=== PATIENT | female | born 1990 | race Caucasian/White ===

== ENCOUNTER 2016-08-14 01:15 | Inpatient (IN) | payer BC ==
[~2016-08-14] VITALS: Ht 170.2 cm; Wt 68.2 kg
[2016-08-14] VITALS (17 sets, daily range): BP systolic 91–136; BP diastolic 49–83
[2016-08-14] MEDS ORDERED: INSULIN,REGULAR 150 UNIT DRIP 150 ML IV ONE (03:00)
[2016-08-14 03:04] LABS: BASO # 0.1 x10^3/uL (0.0-0.2); BASO % 1 % (0-3); EOS % 0 % (0-3); HEMOGLOBIN 13.3 g/dL (12.0-15.5); LYMPH # 2.7 x10^3/uL (1.0-4.8); LYMPH % 16 % (24-48); MEAN CORPUSCULAR HEMOGLOBIN 29 pg (25-35); MEAN CORPUSCULAR HGB CONC 29 g/dL (31-37); MEAN CORPUSCULAR VOLUME 101 fL (79-100); MONO % 4 % (0-9); NEUT % 80 % (31-73); PLATELET COUNT 434 x10^3/uL (140-400); RED BLOOD COUNT 4.59 x10^6/uL (3.50-5.40); RED CELL DISTRIBUTION WIDTH 16.2 % (11.5-14.5); WHITE BLOOD COUNT 17.7 x10^3/uL (4.0-11.0)
[2016-08-14 03:17] LABS: ALBUMIN 3.9 g/dL (3.4-5.0); ALBUMIN/GLOBULIN RATIO 0.9 (1.0-1.7); CALCIUM 9.3 mg/dL (8.5-10.1); CREATININE 1.7 mg/dL (0.6-1.0); GFR 36.6; POTASSIUM 5.9 mmol/L (3.5-5.1); TOTAL BILIRUBIN 0.8 mg/dL (0.2-1.0); TOTAL PROTEIN 8.2 g/dL (6.4-8.2)
[2016-08-14] MEDS ORDERED: IV NORMAL SALINE 1000ML BAG 1,000 ML IV ONE ×4 (03:30→05:15)
[2016-08-14] MEDS ORDERED: INSULIN REGULAR 100 UNIT/ML 10ML VIAL. IV ONE (03:30)
[2016-08-14] MEDS ORDERED: LIDOCAINE 1% / SOD BICARB 8.4% 20 ML VIAL. IJ ONE ×2 (03:33→05:00)
[2016-08-14 04:00] LABS: PLT ESTIMATE ADEQUATE (ADEQUATE)
[2016-08-14] MEDS ORDERED: ONDANSETRON PF 4 MG/2 ML VIAL. IV ONE (04:00)
[2016-08-14] MEDS ORDERED: LORAZEPAM 2 MG/ML VIAL. IV ONE (04:00)
[2016-08-14] MEDS ORDERED: HYDROMORPHONE 2 MG/ML VIAL. IV ONE (04:00)
[2016-08-14] MEDS ORDERED: IV NORMAL SALINE 1000ML BAG 1,000 ML IV SCH (05:10)
[2016-08-14] MEDS ORDERED: ONDANSETRON PF 4 MG/2 ML VIAL. IV PRN (05:15)
[2016-08-14] MEDS ORDERED: INSULIN REGULAR VIAL 150 UNIT in 0.9 % SODIUM CHLORIDE 150ML 150 ML IV PRN (05:30)
[2016-08-14 05:40] LABS: HEMATOCRIT 46.3 % (36.0-47.0)
[2016-08-14] MEDS ORDERED: SODIUM BICARBONATE VIAL 50 MEQ in IV 1/2 NORMAL SALINE 1,000 ML IV SCH (06:00)
[2016-08-14 06:07] LABS: PHOSPHORUS 8.3 mg/dL (2.6-4.7)
[2016-08-14 06:08] LABS: MAGNESIUM 2.6 mg/dL (1.8-2.4)
--- NOTE | 2016-08-14 07:09 | PHYS DOC ---
Past Medical History Past Medical History: Diabetes-Type I Past Surgical History: No Surgical History Alcohol Use: None Drug Use: Marijuana, Methamphetamine Adult General Chief Complaint Chief Complaint: HYPERGLYCEMIA HPI HPI Patient is a 25 year old female who is a transfer from [facility] for evaluation of DKA. Upon presentation the ER patient appeared to be tachypneic and tachycardic. I discussed with the ER physician at [facility] and he has requested patient be transferred here for assistance in management of her DKA. Patient's biggest issue with managing her DKA is being a very difficult IV access. The ER doctor at [facility] reports that he attempted multiple times to get a peripheral access on her unsuccessfully. He attempted a right subclavian IV on her unsuccessfully secondary to a significant scar tissue in that area from multiple IVs in the past. The ER doctor reports that for the Patient is a subclavian central catheter that he attempted the patient did obtain a apical right pneumothorax. Case was discussed with the camp housekeeper and the plan was to have the patient transferred to the ER here at [facility] and will have the nurse dealer accounts investigator up attempt an IV for access. If the nurse assist with unsuccessful then the patient would become an ER patient and I would assist with obtaining access. I was informed that the nursing dealer accounts investigator assist with unsuccessful in obtaining the IV. I was able to place a 20-gauge IV catheter in the patient's right antecubital fossa. Blood was obtained and IV fluids were initiated. Patient's labs came back with a significant acidosis with a bicarbonate of 9 and anion gap of 38. Patient was started on normal saline, given to use of IV insulin, and placed on insulin drip, and was upgraded to the intensive care unit. Patient's chest x-ray revealed a significant right pneumothorax which appears to have enlarged since her presentation in the ER [facility]. While she was in the ER the patient also received a right chest tube. After placement of the right chest to the patient reported that she felt significantly better from a respiratory status. Patient's physical exam was significant for tachycardia, pallor in her skin, tachypnea, dry mucous membranes, #1 DKA: Patient will be admitted to the intensive care unit. Patient was started on insulin. Patient was volume resuscitated and looks much improved after fluids and insulin. Case was discussed with Dr. Dee. #2 right pneumothorax secondary to right subclavian catheter insertion. HEENT Procedure note: Chest tube insertion right side pneumothorax In a clean and sterile sterile fashion using optimal barrier technique verbal informed consent was obtained. Patient was placed on her back and given Dilaudid to assist with pain and Ativan to assist with her anxiety issue. The site was prepped with Betadine. 3 mL of lidocaine were utilized in order to numb up the skin and the superior aspect of the ribs on the fourth intercostal space in the mid axillary line. After adequate anesthesia was obtained an 11 blade was utilized to make a 2 cm incision on the fourth intercostal space midaxillaruy line. Using forceps and was able to easily enter the pleural cavity. A 28 Romanian chest tube was then inserted cranially without any significant difficulties. Upon inserting the chest tube the patient had significant improvement in her wrist upper status and felt significantly improved as far as her breathing. Chest tube was sutured in place using figure- of-eight suturing. Chest he was placed in suction and leak was identified. Chest x-ray was obtained which revealed adequate placement of the chest tube and resolution of the pneumothorax. Critical care time of 90 minutes was utilized for treatment and management of this patient's care. Patient was volume resuscitated. Patient's severe acidosis that was managed. Patient had a pneumothorax that was managed. 90 minutes were utilized exclusive of procedures. Review of Systems Review of Systems Constitutional: Denies fever or chills [] Eyes: Denies change in visual acuity, redness, or eye pain [] HENT: Denies nasal congestion or sore throat [] All other review systems are negative except as documented in history of present illness portion. Current Medications Current Medications Current Medications Medications (Trade) Dose Ordered Sig/Armand Start Time Stop Time Status Last Admin Dose Admin Insulin Human Regular (Novolin R Iv Drip) 150 ml @ 0 mls/hr 1X ONCE 08/14/16 03:00 08/14/16 03:05 DC 08/14/16 04:11 16.5 MLS/HR Allergies Allergies Allergies Coded Allergies Type Severity Reaction Last Updated Verified acetaminophen Allergy Intermediate 08/14/16 Yes adhesive tape Allergy Intermediate 08/14/16 Yes Physical Exam Physical Exam Constitutional: Well developed, well nourished, HENT: Normocephalic, atraumatic, bilateral external ears normal, dry mucous membranes. Eyes: PERRLA, EOMI, conjunctiva normal, no discharge. [] Neck: Normal range of motion, no tenderness, supple, no stridor. [] Cardiovascular:Heart rate regular rhythm, tachycardia tachypnea Abdomen: Bowel sounds normal, soft, no tenderness, no masses, no pulsatile masses. [] Skin: Warm, dry, no erythema, no rash. [] Back: No tenderness, no CVA tenderness. [] Extremities: No tenderness, no cyanosis, no clubbing, ROM intact, no edema. [] Neurologic: Alert and oriented X 3, normal motor function, normal sensory function, no focal deficits noted. [] Psychologic: Affect normal, judgement normal, mood normal. [] Current Patient Data Vital Signs Vital Signs Date Time Temp Pulse Resp B/P Pulse Ox O2 Delivery O2 Flow Rate FiO2 08/14/16 02:47 138 28 111/69 99 Room Air 08/14/16 02:40 97.9 97.9 Lab Values Laboratory Tests Test 08/14/16 02:35 White Blood Count 17.7x10^3/uL (4.0-11.0) H Red Blood Count 4.59x10^6/uL (3.50-5.40) Hemoglobin 13.3g/dL (12.0-15.5) Hematocrit 46.3% (36.0-47.0) Mean Corpuscular Volume 101fL (79-100) H Mean Corpuscular Hemoglobin 29pg (25-35) Mean Corpuscular Hemoglobin Concent 29g/dL (31-37) L Red Cell Distribution Width 16.2% (11.5-14.5) H Platelet Count 434x10^3/uL (140-400) H Neutrophils (%) (Auto) 80% (31-73) H Lymphocytes (%) (Auto) 16% (24-48) L Monocytes (%) (Auto) 4% (0-9) Eosinophils (%) (Auto) 0% (0-3) Basophils (%) (Auto) 1% (0-3) Neutrophils # (Auto) 14.1x10^3uL (1.8-7.7) H Lymphocytes # (Auto) 2.7x10^3/uL (1.0-4.8) Monocytes # (Auto) 0.8x10^3/uL (0.0-1.1) Eosinophils # (Auto) 0.0x10^3/uL (0.0-0.7) Basophils # (Auto) 0.1x10^3/uL (0.0-0.2) Segmented Neutrophils % 67% (35-66) H Band Neutrophils % 12% (0-9) H Lymphocytes % 15% (24-48) L Monocytes % 5% (0-10) Metamyelocytes % 1% (0-0) H Platelet Estimate Adequate (ADEQUATE) Sodium Level 128mmol/L (136-145) L Potassium Level 5.9mmol/L (3.5-5.1) H Chloride Level 81mmol/L (98-107) L Carbon Dioxide Level 9mmol/L (21-32) *L Anion Gap 38 (6-14) H Blood Urea Nitrogen 33mg/dL (7-20) H Creatinine 1.7mg/dL (0.6-1.0) H Estimated GFR (Cockcroft-Gault) 36.6 BUN/Creatinine Ratio 19 (6-20) Glucose Level 883mg/dL (70-99) *H Calcium Level 9.3mg/dL (8.5-10.1) Total Bilirubin 0.8mg/dL (0.2-1.0) Aspartate Amino Transferase (AST) 19U/L (15-37) Alanine Aminotransferase (ALT) 36U/L (14-59) Alkaline Phosphatase 131U/L (46-116) H Total Protein 8.2g/dL (6.4-8.2) Albumin 3.9g/dL (3.4-5.0) Albumin/Globulin Ratio 0.9 (1.0-1.7) L Laboratory Tests 08/14/16 02:35 Laboratory Tests 08/14/16 02:35 EKG EKG [] Radiology/Procedures Radiology/Procedures [] Course & Med Decision Making Course & Med Decision Making Pertinent Labs and Imaging studies reviewed. (See chart for details) [] Dragon Disclaimer Dragon Disclaimer This electronic medical record was generated, in whole or in part, using a voice recognition dictation system. Departure Departure Impression: Primary Impression: DKA (diabetic ketoacidoses) Additional Impressions: Pneumothorax on right Dehydration Hyperkalemia Disposition: ADMITTED INPATIENT Admitting Physician: Latonya Clements Condition: CRITICAL Referrals: NOLVIA ARRIOLA (PCP) Problem Qualifiers NELSY MILLER MD Aug 14, 2016 07:09
--- NOTE | 2016-08-14 07:24 | RAD ---
Portable chest, 08/14/2016, 3:05 AM: History: Pneumothorax. Comparison is made to an outside study from earlier the same day. The right-sided pneumothorax has increased in size. Is now estimated at 30-40% in volume. The heart size is normal. No pulmonary infiltrates are seen. There is no evidence of pleural fluid. IMPRESSION: Increasing moderate-sized right pneumothorax.
--- NOTE | 2016-08-14 07:27 | RAD ---
Portable chest, 08/14/2016, 4:46 AM: History: Pneumothorax, chest tube placement Comparison is made to the study of earlier the same day. A right chest tube has been placed with nearly complete resolution of the right-sided pneumothorax. There is only a tiny residual bit of pleural air over the right apex. There is only minimal atelectasis in the right base. The heart size is normal. No pleural fluid is seen. IMPRESSION: Nearly complete evacuation of the right pneumothorax status post right chest tube placement
[2016-08-14 07:50] LABS: CALCIUM 8.3 mg/dL (8.5-10.1); CREATININE 1.6 mg/dL (0.6-1.0); GFR 39.3; POTASSIUM 4.7 mmol/L (3.5-5.1)
[2016-08-14 09:04] LABS: HCO3 ABG 16 mmol/L (21-28); PCO2 ABG 30 mmHg (35-46); PH ABG 7.36 (7.35-7.45); PO2 ABG 86 mmHg (85-108); SAT O2 ABG 96 % (92-99)
[2016-08-14 09:05] LABS: FIO2 ABG 21
[2016-08-14] MEDS: IV DEXTROSE 5% - 0.9 % NACL 1,000 ML IV PRN ×3 (09:35→18:27)
--- NOTE | 2016-08-14 10:58 | ACF ---
Admit Criteria Forms Admit Criteria Forms Admit Criteria Forms DIABETES Clinical Indications for Admission to Inpatient Care (Place 'X' for any and all applicable criteria): Admission is indicated by presence of ALL (if I & II) or ANY ONE (if III or IV) of the following (1)(2)(3)(4): [x]I. Diabetes is uncontrolled as indicated by ANY ONE of the following: [x]a) Diabetic ketoacidosis as indicated by ALL of the following (8): [ ]i) Hyperglycemia (eg, plasma glucose greater than 200 mg/ dL (11.1 mmol/L)) [ ]ii) Acidosis (eg, arterial pH less than 7.30, serum bicarbonate level less than 15 mEq/L (mmol/L)) [ ]iii) Moderate ketonuria or ketonemia [ ]b) Hyperglycemic hyperosmolar state as indicated by ALL of the following(9)(10): [ ]i) Neurologic dysfunction (eg, stupor, coma, hemiparesis , seizure)(13) [ ]ii) Plasma glucose greater than 600 mg/dL (33.3 mmol/L) [ ]iii) Serum osmolality greater than 320 mOsm/kg (mmol/kg) [ ]c) Severe signs or symptoms secondary to hyperglycemia indicated by ANY ONE of the following: [ ]i) Altered mental status(10) [ ]ii) Significant hypovolemia or dehydration [ ]iii) Intractable nausea or vomiting [ ]iv) Unexplained fever or severe infection [ ]v) Severe electrolyte abnormality (eg, hypokalemia, hyperkalemia, hypernatremia) [ ]II. Management at other levels of care (Also use Diabetes: Observation Care as appropriate) is not feasible because of ANY ONE of the following: [ ]a) Condition was not adequately corrected with treatment at other levels of care. [ ]b) Treatment at other levels of care is not appropriate because of condition severity (eg, hyperosmolar coma). [ ]III. Contraindications and/or Inappropriate clinical situations for Observational Care in patients with Diabetes, when ANY ONE of the following is required: [ ]a) Patient require specific diagnostic workup or therapeutic intervention 22 [ ]b) Patient with abnormal vital signs or altered mental status 23 [ ]IV. General contraindications and/or Inappropriate clinical situations for Observational Care in patients with Diabetes, when ANY ONE of the following is required: [ ]a) Prediction of prolongation of LOS based on ANY ONE of the following may be considered as a contraindication for observational care 2, 3, 4, 5, 6, 7, 8, 9, 10, 11 [ ]i) Age > 65 yrs. [ ]ii) Patient arriving by ambulance [ ]iii) Patient with high acuity [ ]iv) Patient requiring vital sign monitoring [ ]v) Patient on IV medication [ ]b) Systolic blood pressures 180mmHg 3,12 [ ]c) Patient with altered mental status including delirium and other alteration of consciousness, (3) [ ]d) Patient whose discharge disposition will be to a residential home or rehabilitation home should not be managed in Emergency Department Observation Unit. CMS rule requires 3 days hospital stay before such placement.3,13 [ ]e) Patient with failure to thrive due to broad array of etiologies 3,16,17 [ ]f) Inability to ambulate 3,14 Extended stay beyond goal length of stay may be needed for(3)(20): [ ]a) Treatment of precipitating causes [ ]b) Development of hypoglycemia [ ]c) Complications of treatment [ ]d) Complications of decompensated diabetes (eg, acute gastric dilatation, persistent metabolic or neurologic derangement) [ ]e) Active Comorbidities [ ]f) Older patients( 65 years or older) The original [employer] content created by [employer] has been revised. The portions of the content which have been revised are identified through the use of italic text or in bold,and [facility] has neither reviewed nor approved the modified material. All other unmodified content is copyright [facility]. Please see references footnoted in the original [facility] edition 2016 JONAH MALDONADO Aug 14, 2016 10:58
[2016-08-14 11:37] LABS: CALCIUM 7.9 mg/dL (8.5-10.1); CREATININE 1.1 mg/dL (0.6-1.0); GFR 60.5; MAGNESIUM 2.1 mg/dL (1.8-2.4); PHOSPHORUS 3.9 mg/dL (2.6-4.7); POTASSIUM 4.1 mmol/L (3.5-5.1)
[2016-08-14] MEDS: MORPHINE SULFATE 2 MG/ML DISP.SYRIN. IV PRN ×3 (12:14→21:22)
--- NOTE | 2016-08-14 16:11 | PDOC ---
PULMONARY PROGRESS NOTES Vitals Vital Signs Date Time Temp Pulse Resp B/P Pulse Ox O2 Delivery O2 Flow Rate FiO2 08/14/16 16:00 Room Air 08/14/16 12:14 17 99 08/14/16 07:30 124 99/56 08/14/16 06:00 98.2 98.2 Labs Laboratory Tests Test 08/14/16 02:35 08/14/16 05:19 08/14/16 06:00 08/14/16 06:30 White Blood Count 17.7x10^3/uL (4.0-11.0) Red Blood Count 4.59x10^6/uL (3.50-5.40) Hemoglobin 13.3g/dL (12.0-15.5) Hematocrit 46.3% (36.0-47.0) Mean Corpuscular Volume 101fL (79-100) Mean Corpuscular Hemoglobin 29pg (25-35) Mean Corpuscular Hemoglobin Concent 29g/dL (31-37) Red Cell Distribution Width 16.2% (11.5-14.5) Platelet Count 434x10^3/uL (140-400) Neutrophils (%) (Auto) 80% (31-73) Lymphocytes (%) (Auto) 16% (24-48) Monocytes (%) (Auto) 4% (0-9) Eosinophils (%) (Auto) 0% (0-3) Basophils (%) (Auto) 1% (0-3) Neutrophils # (Auto) 14.1x10^3uL (1.8-7.7) Lymphocytes # (Auto) 2.7x10^3/uL (1.0-4.8) Monocytes # (Auto) 0.8x10^3/uL (0.0-1.1) Eosinophils # (Auto) 0.0x10^3/uL (0.0-0.7) Basophils # (Auto) 0.1x10^3/uL (0.0-0.2) Segmented Neutrophils % 67% (35-66) Band Neutrophils % 12% (0-9) Lymphocytes % 15% (24-48) Monocytes % 5% (0-10) Metamyelocytes % 1% (0-0) Platelet Estimate Adequate (ADEQUATE) Sodium Level 128mmol/L (136-145) 136mmol/L (136-145) Potassium Level 5.9mmol/L (3.5-5.1) 4.7mmol/L (3.5-5.1) Chloride Level 81mmol/L (98-107) 95mmol/L (98-107) Carbon Dioxide Level 9mmol/L (21-32) 6mmol/L (21-32) Anion Gap 38 (6-14) 35 (6-14) Blood Urea Nitrogen 33mg/dL (7-20) 36mg/dL (7-20) Creatinine 1.7mg/dL (0.6-1.0) 1.6mg/dL (0.6-1.0) Estimated GFR (Cockcroft-Gault) 36.6 39.3 BUN/Creatinine Ratio 19 (6-20) Glucose Level 883mg/dL (70-99) 661mg/dL (70-99) Calcium Level 9.3mg/dL (8.5-10.1) 8.3mg/dL (8.5-10.1) Total Bilirubin 0.8mg/dL (0.2-1.0) Aspartate Amino Transf (AST/SGOT) 19U/L (15-37) Alanine Aminotransferase (ALT/SGPT) 36U/L (14-59) Alkaline Phosphatase 131U/L (46-116) Total Protein 8.2g/dL (6.4-8.2) Albumin 3.9g/dL (3.4-5.0) Albumin/Globulin Ratio 0.9 (1.0-1.7) Phosphorus Level 8.3mg/dL (2.6-4.7) Magnesium Level 2.6mg/dL (1.8-2.4) Glucose (Fingerstick) 480mg/dL (70-99) Nasal Screen MRSA (PCR) Negative (Negative) Test 08/14/16 07:22 08/14/16 08:27 08/14/16 09:00 08/14/16 09:34 Glucose (Fingerstick) 325mg/dL (70-99) 224mg/dL (70-99) 173mg/dL (70-99) O2 Saturation 96% (92-99) Arterial Blood pH 7.36 (7.35-7.45) Arterial Blood pCO2 at Patient Temp 30mmHg (35-46) Arterial Blood pO2 at Patient Temp 86mmHg (85-108) Arterial Blood HCO3 16mmol/L (21-28) Arterial Blood Base Excess -8mmol/L (-3-3) FiO2 21 Test 08/14/16 10:48 08/14/16 11:00 08/14/16 11:56 08/14/16 13:04 Glucose (Fingerstick) 174mg/dL (70-99) 176mg/dL (70-99) 153mg/dL (70-99) Sodium Level 138mmol/L (136-145) Potassium Level 4.1mmol/L (3.5-5.1) Chloride Level 103mmol/L (98-107) Carbon Dioxide Level 23mmol/L (21-32) Anion Gap 12 (6-14) Blood Urea Nitrogen 30mg/dL (7-20) Creatinine 1.1mg/dL (0.6-1.0) Estimated GFR (Cockcroft-Gault) 60.5 Glucose Level 203mg/dL (70-99) Calcium Level 7.9mg/dL (8.5-10.1) Phosphorus Level 3.9mg/dL (2.6-4.7) Magnesium Level 2.1mg/dL (1.8-2.4) Test 08/14/16 14:19 08/14/16 15:44 Glucose (Fingerstick) 154mg/dL (70-99) 113mg/dL (70-99) Laboratory Tests Test 08/14/16 02:35 08/14/16 05:19 08/14/16 06:00 08/14/16 06:30 White Blood Count 17.7x10^3/uL (4.0-11.0) Red Blood Count 4.59x10^6/uL (3.50-5.40) Hemoglobin 13.3g/dL (12.0-15.5) Hematocrit 46.3% (36.0-47.0) Mean Corpuscular Volume 101fL (79-100) Mean Corpuscular Hemoglobin 29pg (25-35) Mean Corpuscular Hemoglobin Concent 29g/dL (31-37) Red Cell Distribution Width 16.2% (11.5-14.5) Platelet Count 434x10^3/uL (140-400) Neutrophils (%) (Auto) 80% (31-73) Lymphocytes (%) (Auto) 16% (24-48) Monocytes (%) (Auto) 4% (0-9) Eosinophils (%) (Auto) 0% (0-3) Basophils (%) (Auto) 1% (0-3) Neutrophils # (Auto) 14.1x10^3uL (1.8-7.7) Lymphocytes # (Auto) 2.7x10^3/uL (1.0-4.8) Monocytes # (Auto) 0.8x10^3/uL (0.0-1.1) Eosinophils # (Auto) 0.0x10^3/uL (0.0-0.7) Basophils # (Auto) 0.1x10^3/uL (0.0-0.2) Segmented Neutrophils % 67% (35-66) Band Neutrophils % 12% (0-9) Lymphocytes % 15% (24-48) Monocytes % 5% (0-10) Metamyelocytes % 1% (0-0) Platelet Estimate Adequate (ADEQUATE) Sodium Level 128mmol/L (136-145) 136mmol/L (136-145) Potassium Level 5.9mmol/L (3.5-5.1) 4.7mmol/L (3.5-5.1) Chloride Level 81mmol/L (98-107) 95mmol/L (98-107) Carbon Dioxide Level 9mmol/L (21-32) 6mmol/L (21-32) Anion Gap 38 (6-14) 35 (6-14) Blood Urea Nitrogen 33mg/dL (7-20) 36mg/dL (7-20) Creatinine 1.7mg/dL (0.6-1.0) 1.6mg/dL (0.6-1.0) Estimated GFR (Cockcroft-Gault) 36.6 39.3 BUN/Creatinine Ratio 19 (6-20) Glucose Level 883mg/dL (70-99) 661mg/dL (70-99) Calcium Level 9.3mg/dL (8.5-10.1) 8.3mg/dL (8.5-10.1) Total Bilirubin 0.8mg/dL (0.2-1.0) Aspartate Amino Transf (AST/SGOT) 19U/L (15-37) Alanine Aminotransferase (ALT/SGPT) 36U/L (14-59) Alkaline Phosphatase 131U/L (46-116) Total Protein 8.2g/dL (6.4-8.2) Albumin 3.9g/dL (3.4-5.0) Albumin/Globulin Ratio 0.9 (1.0-1.7) Phosphorus Level 8.3mg/dL (2.6-4.7) Magnesium Level 2.6mg/dL (1.8-2.4) Glucose (Fingerstick) 480mg/dL (70-99) Nasal Screen MRSA (PCR) Negative (Negative) Test 08/14/16 07:22 08/14/16 08:27 08/14/16 09:00 08/14/16 09:34 Glucose (Fingerstick) 325mg/dL (70-99) 224mg/dL (70-99) 173mg/dL (70-99) O2 Saturation 96% (92-99) Arterial Blood pH 7.36 (7.35-7.45) Arterial Blood pCO2 at Patient Temp 30mmHg (35-46) Arterial Blood pO2 at Patient Temp 86mmHg (85-108) Arterial Blood HCO3 16mmol/L (21-28) Arterial Blood Base Excess -8mmol/L (-3-3) FiO2 21 Test 08/14/16 10:48 08/14/16 11:00 08/14/16 11:56 08/14/16 13:04 Glucose (Fingerstick) 174mg/dL (70-99) 176mg/dL (70-99) 153mg/dL (70-99) Sodium Level 138mmol/L (136-145) Potassium Level 4.1mmol/L (3.5-5.1) Chloride Level 103mmol/L (98-107) Carbon Dioxide Level 23mmol/L (21-32) Anion Gap 12 (6-14) Blood Urea Nitrogen 30mg/dL (7-20) Creatinine 1.1mg/dL (0.6-1.0) Estimated GFR (Cockcroft-Gault) 60.5 Glucose Level 203mg/dL (70-99) Calcium Level 7.9mg/dL (8.5-10.1) Phosphorus Level 3.9mg/dL (2.6-4.7) Magnesium Level 2.1mg/dL (1.8-2.4) Test 08/14/16 14:19 08/14/16 15:44 Glucose (Fingerstick) 154mg/dL (70-99) 113mg/dL (70-99) Impression . NOTE DICTATED PTX IMPROVED WILL D/C WALL SUCTION AND REPEAT CXR JEFF NEW MD Aug 14, 2016 16:11
[2016-08-14] MEDS: INSULIN DETEMIR 300 UNITS/3 ML INSULN.PEN. SQ SCH (21:18)
[2016-08-15 03:59] VITALS: BP 122/85
[2016-08-15 05:24] LABS: BASO # 0.1 x10^3/uL (0.0-0.2); BASO % 1 % (0-3); EOS % 1 % (0-3); HEMATOCRIT 29.9 % (36.0-47.0); HEMOGLOBIN 9.9 g/dL (12.0-15.5); LYMPH # 2.9 x10^3/uL (1.0-4.8); LYMPH % 28 % (24-48); MEAN CORPUSCULAR HEMOGLOBIN 30 pg (25-35); MEAN CORPUSCULAR HGB CONC 33 g/dL (31-37); MEAN CORPUSCULAR VOLUME 90 fL (79-100); MONO % 7 % (0-9); NEUT % 63 % (31-73); PLATELET COUNT 266 x10^3/uL (140-400); RED BLOOD COUNT 3.31 x10^6/uL (3.50-5.40); RED CELL DISTRIBUTION WIDTH 14.9 % (11.5-14.5); WHITE BLOOD COUNT 10.3 x10^3/uL (4.0-11.0)
[2016-08-15 05:48] LABS: CALCIUM 7.9 mg/dL (8.5-10.1); CREATININE 0.9 mg/dL (0.6-1.0); GFR 76.3; POTASSIUM 3.4 mmol/L (3.5-5.1)
[2016-08-15 07:00] VITALS: BP 118/91
[2016-08-15] MEDS ORDERED: ONDANSETRON PF 4 MG/2 ML VIAL. IV PRN (08:00)
[2016-08-15] MEDS ORDERED: DEXTROSE 50% 25 GM / 50ML DISP.SYRIN. IV PRN (08:00)
[2016-08-15] MEDS: INSULIN ASPART 300 UNITS/3 ML INSULN.PEN SQ SCH ×3 (08:00→17:15)
[2016-08-15] MEDS: MORPHINE SULFATE 2 MG/ML DISP.SYRIN. IV PRN ×5 (08:18→21:59)
--- NOTE | 2016-08-15 08:58 | RAD ---
PORTABLE CHEST 1V Clinical Indication: Right chest tube, timed 1830 Comparison: August 14, 2016. Technique: Portable upright AP view of the chest is obtained. Findings: Right-sided chest tube appears stable in position. Minimal residual right apical pneumothorax is seen, similar to the previous exam. No interval consolidation or pleural effusion is seen. Cardiomediastinal silhouette remains within normal limits of size. Visualized osseous structures and overlying soft tissues demonstrate no acute interval change. IMPRESSION: Stable positioning of a right chest tube with trace right apical pneumothorax remaining.
--- NOTE | 2016-08-15 09:29 | PDOC ---
PULMONARY PROGRESS NOTES Subjective no sob, has pain in ct site. has occ cough. Vitals Vital Signs Date Time Temp Pulse Resp B/P Pulse Ox O2 Delivery O2 Flow Rate FiO2 08/15/16 08:18 95 Room Air 08/15/16 07:00 98.2 96 18 118/91 3.0 98.2 Comments ros as mentioned as above other sys otherwise neb ROS: No Chest Pain General: Alert HEENT: Other (nc at perrl nose throat clear) Lungs: Crackles, Other (r ct) Cardiovascular: S1, S2 Abdomen: Soft, Non-tender Neuro Exam: Alert, Oriented Extremities: No Edema Skin: Warm Labs Laboratory Tests Test 08/14/16 02:35 08/14/16 05:19 08/14/16 06:00 08/14/16 06:30 White Blood Count 17.7x10^3/uL (4.0-11.0) Red Blood Count 4.59x10^6/uL (3.50-5.40) Hemoglobin 13.3g/dL (12.0-15.5) Hematocrit 46.3% (36.0-47.0) Mean Corpuscular Volume 101fL (79-100) Mean Corpuscular Hemoglobin 29pg (25-35) Mean Corpuscular Hemoglobin Concent 29g/dL (31-37) Red Cell Distribution Width 16.2% (11.5-14.5) Platelet Count 434x10^3/uL (140-400) Neutrophils (%) (Auto) 80% (31-73) Lymphocytes (%) (Auto) 16% (24-48) Monocytes (%) (Auto) 4% (0-9) Eosinophils (%) (Auto) 0% (0-3) Basophils (%) (Auto) 1% (0-3) Neutrophils # (Auto) 14.1x10^3uL (1.8-7.7) Lymphocytes # (Auto) 2.7x10^3/uL (1.0-4.8) Monocytes # (Auto) 0.8x10^3/uL (0.0-1.1) Eosinophils # (Auto) 0.0x10^3/uL (0.0-0.7) Basophils # (Auto) 0.1x10^3/uL (0.0-0.2) Segmented Neutrophils % 67% (35-66) Band Neutrophils % 12% (0-9) Lymphocytes % 15% (24-48) Monocytes % 5% (0-10) Metamyelocytes % 1% (0-0) Platelet Estimate Adequate (ADEQUATE) Sodium Level 128mmol/L (136-145) 136mmol/L (136-145) Potassium Level 5.9mmol/L (3.5-5.1) 4.7mmol/L (3.5-5.1) Chloride Level 81mmol/L (98-107) 95mmol/L (98-107) Carbon Dioxide Level 9mmol/L (21-32) 6mmol/L (21-32) Anion Gap 38 (6-14) 35 (6-14) Blood Urea Nitrogen 33mg/dL (7-20) 36mg/dL (7-20) Creatinine 1.7mg/dL (0.6-1.0) 1.6mg/dL (0.6-1.0) Estimated GFR (Cockcroft-Gault) 36.6 39.3 BUN/Creatinine Ratio 19 (6-20) Glucose Level 883mg/dL (70-99) 661mg/dL (70-99) Calcium Level 9.3mg/dL (8.5-10.1) 8.3mg/dL (8.5-10.1) Total Bilirubin 0.8mg/dL (0.2-1.0) Aspartate Amino Transf (AST/SGOT) 19U/L (15-37) Alanine Aminotransferase (ALT/SGPT) 36U/L (14-59) Alkaline Phosphatase 131U/L (46-116) Total Protein 8.2g/dL (6.4-8.2) Albumin 3.9g/dL (3.4-5.0) Albumin/Globulin Ratio 0.9 (1.0-1.7) Phosphorus Level 8.3mg/dL (2.6-4.7) Magnesium Level 2.6mg/dL (1.8-2.4) Glucose (Fingerstick) 480mg/dL (70-99) Nasal Screen MRSA (PCR) Negative (Negative) Test 08/14/16 07:22 08/14/16 08:27 08/14/16 09:00 08/14/16 09:34 Glucose (Fingerstick) 325mg/dL (70-99) 224mg/dL (70-99) 173mg/dL (70-99) O2 Saturation 96% (92-99) Arterial Blood pH 7.36 (7.35-7.45) Arterial Blood pCO2 at Patient Temp 30mmHg (35-46) Arterial Blood pO2 at Patient Temp 86mmHg (85-108) Arterial Blood HCO3 16mmol/L (21-28) Arterial Blood Base Excess -8mmol/L (-3-3) FiO2 21 Test 08/14/16 10:48 08/14/16 11:00 08/14/16 11:56 08/14/16 13:04 Glucose (Fingerstick) 174mg/dL (70-99) 176mg/dL (70-99) 153mg/dL (70-99) Sodium Level 138mmol/L (136-145) Potassium Level 4.1mmol/L (3.5-5.1) Chloride Level 103mmol/L (98-107) Carbon Dioxide Level 23mmol/L (21-32) Anion Gap 12 (6-14) Blood Urea Nitrogen 30mg/dL (7-20) Creatinine 1.1mg/dL (0.6-1.0) Estimated GFR (Cockcroft-Gault) 60.5 Glucose Level 203mg/dL (70-99) Calcium Level 7.9mg/dL (8.5-10.1) Phosphorus Level 3.9mg/dL (2.6-4.7) Magnesium Level 2.1mg/dL (1.8-2.4) Test 08/14/16 14:19 08/14/16 15:44 08/14/16 17:10 08/14/16 19:05 Glucose (Fingerstick) 154mg/dL (70-99) 113mg/dL (70-99) 113mg/dL (70-99) 165mg/dL (70-99) Test 08/14/16 20:50 08/15/16 04:50 08/15/16 07:46 Glucose (Fingerstick) 305mg/dL (70-99) 102mg/dL (70-99) White Blood Count 10.3x10^3/uL (4.0-11.0) Red Blood Count 3.31x10^6/uL (3.50-5.40) Hemoglobin 9.9g/dL (12.0-15.5) Hematocrit 29.9% (36.0-47.0) Mean Corpuscular Volume 90fL (79-100) Mean Corpuscular Hemoglobin 30pg (25-35) Mean Corpuscular Hemoglobin Concent 33g/dL (31-37) Red Cell Distribution Width 14.9% (11.5-14.5) Platelet Count 266x10^3/uL (140-400) Neutrophils (%) (Auto) 63% (31-73) Lymphocytes (%) (Auto) 28% (24-48) Monocytes (%) (Auto) 7% (0-9) Eosinophils (%) (Auto) 1% (0-3) Basophils (%) (Auto) 1% (0-3) Neutrophils # (Auto) 6.5x10^3uL (1.8-7.7) Lymphocytes # (Auto) 2.9x10^3/uL (1.0-4.8) Monocytes # (Auto) 0.8x10^3/uL (0.0-1.1) Eosinophils # (Auto) 0.1x10^3/uL (0.0-0.7) Basophils # (Auto) 0.1x10^3/uL (0.0-0.2) Sodium Level 137mmol/L (136-145) Potassium Level 3.4mmol/L (3.5-5.1) Chloride Level 101mmol/L (98-107) Carbon Dioxide Level 25mmol/L (21-32) Anion Gap 11 (6-14) Blood Urea Nitrogen 17mg/dL (7-20) Creatinine 0.9mg/dL (0.6-1.0) Estimated GFR (Cockcroft-Gault) 76.3 Glucose Level 247mg/dL (70-99) Calcium Level 7.9mg/dL (8.5-10.1) Laboratory Tests Test 08/14/16 09:34 08/14/16 10:48 08/14/16 11:00 08/14/16 11:56 Glucose (Fingerstick) 173mg/dL (70-99) 174mg/dL (70-99) 176mg/dL (70-99) Sodium Level 138mmol/L (136-145) Potassium Level 4.1mmol/L (3.5-5.1) Chloride Level 103mmol/L (98-107) Carbon Dioxide Level 23mmol/L (21-32) Anion Gap 12 (6-14) Blood Urea Nitrogen 30mg/dL (7-20) Creatinine 1.1mg/dL (0.6-1.0) Estimated GFR (Cockcroft-Gault) 60.5 Glucose Level 203mg/dL (70-99) Calcium Level 7.9mg/dL (8.5-10.1) Phosphorus Level 3.9mg/dL (2.6-4.7) Magnesium Level 2.1mg/dL (1.8-2.4) Test 08/14/16 13:04 08/14/16 14:19 08/14/16 15:44 08/14/16 17:10 Glucose (Fingerstick) 153mg/dL (70-99) 154mg/dL (70-99) 113mg/dL (70-99) 113mg/dL (70-99) Test 08/14/16 19:05 08/14/16 20:50 08/15/16 04:50 08/15/16 07:46 Glucose (Fingerstick) 165mg/dL (70-99) 305mg/dL (70-99) 102mg/dL (70-99) White Blood Count 10.3x10^3/uL (4.0-11.0) Red Blood Count 3.31x10^6/uL (3.50-5.40) Hemoglobin 9.9g/dL (12.0-15.5) Hematocrit 29.9% (36.0-47.0) Mean Corpuscular Volume 90fL (79-100) Mean Corpuscular Hemoglobin 30pg (25-35) Mean Corpuscular Hemoglobin Concent 33g/dL (31-37) Red Cell Distribution Width 14.9% (11.5-14.5) Platelet Count 266x10^3/uL (140-400) Neutrophils (%) (Auto) 63% (31-73) Lymphocytes (%) (Auto) 28% (24-48) Monocytes (%) (Auto) 7% (0-9) Eosinophils (%) (Auto) 1% (0-3) Basophils (%) (Auto) 1% (0-3) Neutrophils # (Auto) 6.5x10^3uL (1.8-7.7) Lymphocytes # (Auto) 2.9x10^3/uL (1.0-4.8) Monocytes # (Auto) 0.8x10^3/uL (0.0-1.1) Eosinophils # (Auto) 0.1x10^3/uL (0.0-0.7) Basophils # (Auto) 0.1x10^3/uL (0.0-0.2) Sodium Level 137mmol/L (136-145) Potassium Level 3.4mmol/L (3.5-5.1) Chloride Level 101mmol/L (98-107) Carbon Dioxide Level 25mmol/L (21-32) Anion Gap 11 (6-14) Blood Urea Nitrogen 17mg/dL (7-20) Creatinine 0.9mg/dL (0.6-1.0) Estimated GFR (Cockcroft-Gault) 76.3 Glucose Level 247mg/dL (70-99) Calcium Level 7.9mg/dL (8.5-10.1) Comments cxr small apical ptc Impression . IMPRESSION: 1. Pneumothorax, status post right subclavian catheter attempt. 2. Diabetic ketoacidosis. 3. Type 1 diabetes. 4. Dehydration. 5. Hyperkalemia. Plan . PLAN: 1. Chest tube is in place. There is no air leak. There is pleural variation, 2. cxr shows small ptx, i clamped ct, repeated cxr, r apical ptx slightly larger. ct was connected to suction, will repeat cxr in am discussed w pt, rn, YVETTE Mckeon MD Aug 15, 2016 09:29
--- NOTE | 2016-08-15 09:51 | CONS ---
DATE OF CONSULTATION: 08/14/2016 REASON FOR CONSULTATION: The patient was seen in pulmonary consultation at the request of Dr. Causey for chest tube management, status post pneumothorax. HISTORY OF PRESENT ILLNESS: The patient is a 25-year-old who presented to the Emergency Room with DKA. She has bad peripheral IV access and an attempt was made to obtain a subclavian central line on the right. Subsequent x-ray revealed pneumothorax. Chest tube has been placed. I was asked to manage her chest tube. The patient has had no respiratory distress. She denies any previous pneumothorax, no history of asthma. PAST MEDICAL HISTORY: Diabetes. PAST SURGICAL HISTORY: None. REVIEW OF SYSTEMS: As indicated above, otherwise, a 10-point system was reviewed and negative. CURRENT MEDICATIONS: List was reviewed. ALLERGIES: TO ACETAMINOPHEN. PHYSICAL EXAMINATION: VITAL SIGNS: Stable. O2 saturation was greater than 92%. HEENT: Eyes, the sclerae were nonicteric. NECK: Jugular venous distention was not elevated. No lymphadenopathy. CHEST: Full expansion. LUNGS: Adequate airway flow with no wheezes. CARDIOVASCULAR: Regular rate and rhythm with S1, S2, no S3. ABDOMEN: Soft, nontender, nondistended. EXTREMITIES: No clubbing, cyanosis or edema. Chest x-ray was reviewed, fully inflated right lung. LABORATORY DATA: Reviewed. White count was elevated. Arterial blood gas was reviewed. IMPRESSION: 1. Pneumothorax, status post right subclavian catheter attempt. 2. Diabetic ketoacidosis. 3. Type 1 diabetes. 4. Dehydration. 5. Hyperkalemia. PLAN: 1. Chest tube is in place. There is no air leak. There is variation, we will discontinue wall suction and repeat chest x-ray in 3 hours. 2. If x-ray continues to show fully inflated right lung, we will clamp the tube and proceed with repeating chest x-ray in the a.m. I do appreciate the privilege in participating in the patient's care. JEFF NEW MD DR: MARIANNE/david JOB#: [id number] / [id number]
--- NOTE | 2016-08-15 10:20 | HP ---
ADMIT DATE: 08/14/2016 CHIEF COMPLAINT: DKA. HISTORY OF PRESENT ILLNESS: The patient is a 25-year-old woman with frequent admissions to [facility] for hyperglycemia and DKA. She once again had presented to the Emergency Room at [facility] overnight with tachycardia and tachypnea and was found in DKA. She was transferred to [facility] and placed in the ICU for further care. In the Emergency Room at [facility], it was very difficult establishing an IV access. A subclavian line was attempted and was unsuccessful. Chest pain prompted an x-ray, which revealed a pneumothorax. Chest tube was placed on the right. The patient is currently on insulin drip with improved control of her blood sugars. PAST MEDICAL HISTORY: Diabetes mellitus type 1. FAMILY HISTORY: No other members with diabetes. SOCIAL HISTORY: Lives with family. Multisubstance abuse including cannabis and methamphetamine. ALLERGIES: TYLENOL. MEDICATIONS: MAR reconciled with home medications. REVIEW OF SYSTEMS: The patient is very lethargic, complains of severe pain in her right chest, where chest tube is placed. Denies any nausea, vomiting, any dysuria, or other symptoms. PHYSICAL EXAMINATION: VITAL SIGNS: Show a blood pressure of 91/53, heart rate at 122, and respiratory rate at 20. She is afebrile. GENERAL: This is a well-nourished 25-year-old woman resting on her right side, responding appropriately. HEENT: Shows no scleral icterus. NECK: Supple. LUNGS: Clear, also decreased breathing effort secondary to pain. HEART: Tachycardic. ABDOMEN: Positive bowel sounds, soft, and nontender. EXTREMITIES: Showed no edema. SKIN: Warm, soft, and dry. LABORATORY DATA: WBC of 17.7 and hemoglobin 13 with a platelet count of 434. Chemistries here show a BUN and creatinine of 36 and 0.6, bicarbonate of 6, and glucose of 661 on lab draw, currently in the 200 range by fingerstick. RADIOGRAPHIC FINDINGS: Initial chest x-ray at 3:00 a.m. showed increasing moderate-sized right pneumothorax, prompting subsequent chest tube placement with nearly complete evacuation of right pneumothorax, status post right chest tube placement. ASSESSMENT AND PLAN: The patient is a 25-year-old diabetic, multi-substance abuser, who presents with diabetic ketoacidosis. She is currently on diabetic ketoacidosis protocol with insulin drip, bicarbonate, and is improving by numbers. Her main complaint however is her chest tube, which was necessitated by iatrogenic pneumothorax. As pneumothorax now is resolved, we will try to clamp the tube and repeat x-rays to rule out re-accumulation before discontinuing chest tube. Dr. Mayberry from Pulmonary has been consulted to help with management as well. We will monitor her electrolytes with ongoing insulin therapy. Potassium repletion as needed. For prophylaxis, she will be placed on PPI and heparin. DEEPAK MCKENZIE MD DR: ESTEVAN/nts JOB#: [id number] / [id number] ADONAY
[2016-08-15 11:00] VITALS: BP 124/87
--- NOTE | 2016-08-15 11:28 | RAD ---
CHEST AP ONLY Clinical Indication: ptx, chest tube clamped Comparison: August 14, 2016. Technique: Single portable upright AP view of the chest is obtained. Findings: Right sided chest tube is stable in position. Small residual right apical pneumothorax is redemonstrated. No interval consolidation or pleural effusion is seen. Cardiomediastinal silhouette is stable in size. Visualized osseous structures and overlying soft tissues demonstrate no acute interval change. IMPRESSION: Small apical right pneumothorax redemonstrated, otherwise no acute interval change.
--- NOTE | 2016-08-15 13:48 | PDOC ---
PROGRESS NOTES Chief Complaint Chief Complaint cc: DKA Diabetic ketoacidosis Pneumothorax History of Present Illness History of Present Illness Patient seen and evaluated at bedside. Patient resting comfortably in no apparent distress. She notes pain to the chest tube site and decrease inspiration secondary to pain. Dr. Wolfe clamped the chest tube and cxr was ordered. Imaging showed an apical ptx, thus suction was restarted. discuss w/ Dr. Wolfe and nursing staff. Vitals Vitals Vital Signs Date Time Temp Pulse Resp B/P Pulse Ox O2 Delivery O2 Flow Rate FiO2 08/15/16 12:53 94 Room Air 3.0 08/15/16 11:00 97.9 96 20 124/87 97.9 Physical Exam General: Alert, Oriented X3, Cooperative, Other (chest tube in place. ) Heart: Regular rate, Normal S1 Lungs: Clear, Other (poor inspiratory effort secondary to pain. negative chest retractions or accessory muscle use. ) Abdomen: Soft, No tenderness Extremities: No cyanosis, No edema Skin: No rashes, No significant lesion Labs LABS Laboratory Tests Test 08/14/16 14:19 08/14/16 15:44 08/14/16 17:10 08/14/16 19:05 Glucose (Fingerstick) 154mg/dL (70-99) 113mg/dL (70-99) 113mg/dL (70-99) 165mg/dL (70-99) Test 08/14/16 20:50 08/15/16 04:50 08/15/16 07:46 08/15/16 12:01 Glucose (Fingerstick) 305mg/dL (70-99) 102mg/dL (70-99) 169mg/dL (70-99) White Blood Count 10.3x10^3/uL (4.0-11.0) Red Blood Count 3.31x10^6/uL (3.50-5.40) Hemoglobin 9.9g/dL (12.0-15.5) Hematocrit 29.9% (36.0-47.0) Mean Corpuscular Volume 90fL (79-100) Mean Corpuscular Hemoglobin 30pg (25-35) Mean Corpuscular Hemoglobin Concent 33g/dL (31-37) Red Cell Distribution Width 14.9% (11.5-14.5) Platelet Count 266x10^3/uL (140-400) Neutrophils (%) (Auto) 63% (31-73) Lymphocytes (%) (Auto) 28% (24-48) Monocytes (%) (Auto) 7% (0-9) Eosinophils (%) (Auto) 1% (0-3) Basophils (%) (Auto) 1% (0-3) Neutrophils # (Auto) 6.5x10^3uL (1.8-7.7) Lymphocytes # (Auto) 2.9x10^3/uL (1.0-4.8) Monocytes # (Auto) 0.8x10^3/uL (0.0-1.1) Eosinophils # (Auto) 0.1x10^3/uL (0.0-0.7) Basophils # (Auto) 0.1x10^3/uL (0.0-0.2) Sodium Level 137mmol/L (136-145) Potassium Level 3.4mmol/L (3.5-5.1) Chloride Level 101mmol/L (98-107) Carbon Dioxide Level 25mmol/L (21-32) Anion Gap 11 (6-14) Blood Urea Nitrogen 17mg/dL (7-20) Creatinine 0.9mg/dL (0.6-1.0) Estimated GFR (Cockcroft-Gault) 76.3 Glucose Level 247mg/dL (70-99) Calcium Level 7.9mg/dL (8.5-10.1) Review of Systems Review of Systems (+) occasional cough (+) chest wall pain secondary to chest tube placement (+) pleuritic pain Denies chest pain, sob, abdominal pain, n/v/d, or fever/chills. Assessment and Plan Assessmemt and Plan Problems Medical Problems: (1) Dehydration Status: Acute (2) DKA (diabetic ketoacidoses) Status: Acute (3) Hyperkalemia Status: Acute (4) Pneumothorax on right Status: Acute Assessment: 1.) diabetic ketoacidosis, currently resolved 2.) pneumothorax s/p subclavian line placement 3.) Diabetes mellitus type I 4.) hypokalemia Plan: 1.) chest tube management, per pulmonology 2.) maintain O2 saturation >90% 3.) repeat CXR 4.) replete electrolytes 5.) pain management 6.) recheck labs in the AM 7.) probable discharge when okay with pulmonology. 8.) appreciate subspecialty input. Problems: Comment Review of Relevant I have reviewed the following items silverio (where applicable) has been applied. Labs Laboratory Tests Test 08/14/16 02:35 08/14/16 05:19 08/14/16 06:00 08/14/16 06:30 White Blood Count 17.7x10^3/uL (4.0-11.0) Red Blood Count 4.59x10^6/uL (3.50-5.40) Hemoglobin 13.3g/dL (12.0-15.5) Hematocrit 46.3% (36.0-47.0) Mean Corpuscular Volume 101fL (79-100) Mean Corpuscular Hemoglobin 29pg (25-35) Mean Corpuscular Hemoglobin Concent 29g/dL (31-37) Red Cell Distribution Width 16.2% (11.5-14.5) Platelet Count 434x10^3/uL (140-400) Neutrophils (%) (Auto) 80% (31-73) Lymphocytes (%) (Auto) 16% (24-48) Monocytes (%) (Auto) 4% (0-9) Eosinophils (%) (Auto) 0% (0-3) Basophils (%) (Auto) 1% (0-3) Neutrophils # (Auto) 14.1x10^3uL (1.8-7.7) Lymphocytes # (Auto) 2.7x10^3/uL (1.0-4.8) Monocytes # (Auto) 0.8x10^3/uL (0.0-1.1) Eosinophils # (Auto) 0.0x10^3/uL (0.0-0.7) Basophils # (Auto) 0.1x10^3/uL (0.0-0.2) Segmented Neutrophils % 67% (35-66) Band Neutrophils % 12% (0-9) Lymphocytes % 15% (24-48) Monocytes % 5% (0-10) Metamyelocytes % 1% (0-0) Platelet Estimate Adequate (ADEQUATE) Sodium Level 128mmol/L (136-145) 136mmol/L (136-145) Potassium Level 5.9mmol/L (3.5-5.1) 4.7mmol/L (3.5-5.1) Chloride Level 81mmol/L (98-107) 95mmol/L (98-107) Carbon Dioxide Level 9mmol/L (21-32) 6mmol/L (21-32) Anion Gap 38 (6-14) 35 (6-14) Blood Urea Nitrogen 33mg/dL (7-20) 36mg/dL (7-20) Creatinine 1.7mg/dL (0.6-1.0) 1.6mg/dL (0.6-1.0) Estimated GFR (Cockcroft-Gault) 36.6 39.3 BUN/Creatinine Ratio 19 (6-20) Glucose Level 883mg/dL (70-99) 661mg/dL (70-99) Calcium Level 9.3mg/dL (8.5-10.1) 8.3mg/dL (8.5-10.1) Total Bilirubin 0.8mg/dL (0.2-1.0) Aspartate Amino Transf (AST/SGOT) 19U/L (15-37) Alanine Aminotransferase (ALT/SGPT) 36U/L (14-59) Alkaline Phosphatase 131U/L (46-116) Total Protein 8.2g/dL (6.4-8.2) Albumin 3.9g/dL (3.4-5.0) Albumin/Globulin Ratio 0.9 (1.0-1.7) Phosphorus Level 8.3mg/dL (2.6-4.7) Magnesium Level 2.6mg/dL (1.8-2.4) Glucose (Fingerstick) 480mg/dL (70-99) Nasal Screen MRSA (PCR) Negative (Negative) Test 08/14/16 07:22 08/14/16 08:27 08/14/16 09:00 08/14/16 09:34 Glucose (Fingerstick) 325mg/dL (70-99) 224mg/dL (70-99) 173mg/dL (70-99) O2 Saturation 96% (92-99) Arterial Blood pH 7.36 (7.35-7.45) Arterial Blood pCO2 at Patient Temp 30mmHg (35-46) Arterial Blood pO2 at Patient Temp 86mmHg (85-108) Arterial Blood HCO3 16mmol/L (21-28) Arterial Blood Base Excess -8mmol/L (-3-3) FiO2 21 Test 08/14/16 10:48 08/14/16 11:00 08/14/16 11:56 08/14/16 13:04 Glucose (Fingerstick) 174mg/dL (70-99) 176mg/dL (70-99) 153mg/dL (70-99) Sodium Level 138mmol/L (136-145) Potassium Level 4.1mmol/L (3.5-5.1) Chloride Level 103mmol/L (98-107) Carbon Dioxide Level 23mmol/L (21-32) Anion Gap 12 (6-14) Blood Urea Nitrogen 30mg/dL (7-20) Creatinine 1.1mg/dL (0.6-1.0) Estimated GFR (Cockcroft-Gault) 60.5 Glucose Level 203mg/dL (70-99) Calcium Level 7.9mg/dL (8.5-10.1) Phosphorus Level 3.9mg/dL (2.6-4.7) Magnesium Level 2.1mg/dL (1.8-2.4) Test 08/14/16 14:19 08/14/16 15:44 08/14/16 17:10 08/14/16 19:05 Glucose (Fingerstick) 154mg/dL (70-99) 113mg/dL (70-99) 113mg/dL (70-99) 165mg/dL (70-99) Test 08/14/16 20:50 08/15/16 04:50 08/15/16 07:46 08/15/16 12:01 Glucose (Fingerstick) 305mg/dL (70-99) 102mg/dL (70-99) 169mg/dL (70-99) White Blood Count 10.3x10^3/uL (4.0-11.0) Red Blood Count 3.31x10^6/uL (3.50-5.40) Hemoglobin 9.9g/dL (12.0-15.5) Hematocrit 29.9% (36.0-47.0) Mean Corpuscular Volume 90fL (79-100) Mean Corpuscular Hemoglobin 30pg (25-35) Mean Corpuscular Hemoglobin Concent 33g/dL (31-37) Red Cell Distribution Width 14.9% (11.5-14.5) Platelet Count 266x10^3/uL (140-400) Neutrophils (%) (Auto) 63% (31-73) Lymphocytes (%) (Auto) 28% (24-48) Monocytes (%) (Auto) 7% (0-9) Eosinophils (%) (Auto) 1% (0-3) Basophils (%) (Auto) 1% (0-3) Neutrophils # (Auto) 6.5x10^3uL (1.8-7.7) Lymphocytes # (Auto) 2.9x10^3/uL (1.0-4.8) Monocytes # (Auto) 0.8x10^3/uL (0.0-1.1) Eosinophils # (Auto) 0.1x10^3/uL (0.0-0.7) Basophils # (Auto) 0.1x10^3/uL (0.0-0.2) Sodium Level 137mmol/L (136-145) Potassium Level 3.4mmol/L (3.5-5.1) Chloride Level 101mmol/L (98-107) Carbon Dioxide Level 25mmol/L (21-32) Anion Gap 11 (6-14) Blood Urea Nitrogen 17mg/dL (7-20) Creatinine 0.9mg/dL (0.6-1.0) Estimated GFR (Cockcroft-Gault) 76.3 Glucose Level 247mg/dL (70-99) Calcium Level 7.9mg/dL (8.5-10.1) Laboratory Tests Test 08/14/16 14:19 08/14/16 15:44 08/14/16 17:10 08/14/16 19:05 Glucose (Fingerstick) 154mg/dL (70-99) 113mg/dL (70-99) 113mg/dL (70-99) 165mg/dL (70-99) Test 08/14/16 20:50 08/15/16 04:50 08/15/16 07:46 08/15/16 12:01 Glucose (Fingerstick) 305mg/dL (70-99) 102mg/dL (70-99) 169mg/dL (70-99) White Blood Count 10.3x10^3/uL (4.0-11.0) Red Blood Count 3.31x10^6/uL (3.50-5.40) Hemoglobin 9.9g/dL (12.0-15.5) Hematocrit 29.9% (36.0-47.0) Mean Corpuscular Volume 90fL (79-100) Mean Corpuscular Hemoglobin 30pg (25-35) Mean Corpuscular Hemoglobin Concent 33g/dL (31-37) Red Cell Distribution Width 14.9% (11.5-14.5) Platelet Count 266x10^3/uL (140-400) Neutrophils (%) (Auto) 63% (31-73) Lymphocytes (%) (Auto) 28% (24-48) Monocytes (%) (Auto) 7% (0-9) Eosinophils (%) (Auto) 1% (0-3) Basophils (%) (Auto) 1% (0-3) Neutrophils # (Auto) 6.5x10^3uL (1.8-7.7) Lymphocytes # (Auto) 2.9x10^3/uL (1.0-4.8) Monocytes # (Auto) 0.8x10^3/uL (0.0-1.1) Eosinophils # (Auto) 0.1x10^3/uL (0.0-0.7) Basophils # (Auto) 0.1x10^3/uL (0.0-0.2) Sodium Level 137mmol/L (136-145) Potassium Level 3.4mmol/L (3.5-5.1) Chloride Level 101mmol/L (98-107) Carbon Dioxide Level 25mmol/L (21-32) Anion Gap 11 (6-14) Blood Urea Nitrogen 17mg/dL (7-20) Creatinine 0.9mg/dL (0.6-1.0) Estimated GFR (Cockcroft-Gault) 76.3 Glucose Level 247mg/dL (70-99) Calcium Level 7.9mg/dL (8.5-10.1) Medications Current Medications Insulin Human Regular (Novolin R Iv Drip) 150 ml @ 0 mls/hr 1X ONCE IV Last administered on 08/14/16 04:11; Start 08/14/16 at 03:00; Stop 08/14/16 at 18:48 ; Status DC Insulin Human Regular 10 unit 10 unit 1X ONCE IV Last administered on 03:27; Start 08/14/16 at 03:30; Stop 08/14/16 at 03:31; Status DC Sodium Chloride 1,000 ml @ 1,000 mls/hr 1X ONCE IV Last administered on 03:00; Start 08/14/16 at 03:30; Stop 08/14/16 at 04:29; Status DC Sodium Chloride (Iv Sodium Chloride 0.9% 1000ml Bag) 1,000 ml @ 1,000 mls/hr 1X ONCE IV Last administered on 08/14/16 03:00; Start 08/14/16 at 03:30; Stop 08/14/16 at 04:29; Status DC Ondansetron HCl (Zofran) 4 mg 1X ONCE IV Last administered on 08/14/16 04:00 ; Start 08/14/16 at 04:00; Stop 08/14/16 at 04:01; Status DC Lidocaine/Sodium Bicarbonate (Buffered Lidocaine 1%) 20 ml STK-MED ONCE IJ ; Start 08/14/16 at 03:33; Stop 08/14/16 at 03:34; Status DC Lorazepam (Ativan) 1 mg 1X ONCE IV Last administered on 08/14/16 04:00; Start 08/14/16 at 04:00; Stop 08/14/16 at 04:01; Status DC Hydromorphone HCl (Dilaudid) 1 mg 1X ONCE IV Last administered on 08/14/16 04 :03; Start 08/14/16 at 04:00; Stop 08/14/16 at 04:01; Status DC Lidocaine/Sodium Bicarbonate 20 ml 20 ml 1X ONCE IJ Last administered on 04:30; Start 08/14/16 at 05:00; Stop 08/14/16 at 05:11; Status DC Sodium Chloride 1,000 ml @ 1,000 mls/hr 1X ONCE IV Last administered on 05:00; Start 08/14/16 at 05:00; Stop 08/14/16 at 05:59; Status DC Sodium Chloride (Iv Sodium Chloride 0.9% 1000ml Bag) 1,000 ml @ 1,000 mls/hr 1X ONCE IV Last administered on 08/14/16 05:04; Start 08/14/16 at 05:15; Stop 08/14/16 at 06:14; Status DC Ondansetron HCl (Zofran) 4 mg PRN Q8HRS PRN IV NAUSEA/VOMITING; Start 08/14/16 at 05:15; Stop 08/15/16 at 05:14; Status DC Morphine Sulfate 2 mg 2 mg PRN Q2HR PRN IV SEVERE PAIN Last administered on 21:22; Start 08/14/16 at 05:15; Stop 08/15/16 at 05:14; Status DC Sodium Chloride 1,000 ml @ 200 mls/hr Q5H IV ; Start 08/14/16 at 05:10; Stop at 10:03; Status DC Insulin Human Regular 150 unit/ Sodium Chloride 151.5 ml @ 0 mls/hr CONT PRN PRN IV PER PROTOCOL; Start 08/14/16 at 05:30; Stop 08/14/16 at 18:48; Status DC Sodium Bicarbonate 50 meq/Sodium Chloride 1,050 ml @ 500 mls/hr Q2H6M IV Last administered on 08/14/16 08:07; Start 08/14/16 at 06:00; Stop 08/14/16 at 10:03 ; Status DC Dextrose/Sodium Chloride (Iv D5% - NS) 1,000 ml @ 250 mls/hr Q4H PRN IV . Last administered on 08/14/16 18:27; Start 08/14/16 at 10:15; Stop 08/14/16 at 18:48 ; Status DC Insulin Detemir (Levemir) 20 units QHS SQ Last administered on 08/14/16 21:18 ; Start 08/14/16 at 21:00 Morphine Sulfate 2 mg PRN Q2HR PRN IV PAIN SEVERE Last administered on 12:53; Start 08/15/16 at 08:00 Ondansetron HCl (Zofran) 4 mg PRN Q6HRS PRN IV NAUSEA/VOMITING 1ST CHOICE; Start 08/15/16 at 08:00 Insulin Aspart (Novolog) 0-9 UNITS TIDWMEALS SQ Last administered on 08/15/16t 12:16; Start 08/15/16 at 08:00 Dextrose (Dextrose 50%-Water Syringe) 12.5 gm PRN Q15MIN PRN IV SEE COMMENTS; Start 08/15/16 at 08:00 Vitals/I & O Vital Sign - Last 24 Hours 08/14/16 08/14/16 08/14/16 08/14/16 14:00 15:00 16:00 16:00 Pulse 114 112 108 Resp 18 20 15 B/P 119/68 112/62 119/74 Pulse Ox 97 97 97 O2 Delivery Room Air Room Air Room Air Room Air 08/14/16 08/14/16 08/14/16 08/14/16 17:00 17:55 18:00 18:28 Temp 98.3 98.3 Pulse 100 94 Resp 20 14 B/P 136/78 132/80 Pulse Ox 99 99 98 98 O2 Delivery Room Air Room Air Room Air 08/14/16 08/14/16 08/14/16 08/14/16 20:00 21:22 21:50 23:59 Temp 98.8 98.8 Pulse 107 Resp 20 20 20 B/P 131/83 Pulse Ox 96 O2 Delivery Room Air Room Air Room Air Room Air 08/15/16 08/15/16 08/15/16 08/15/16 03:59 07:00 08:00 08:18 Temp 98.4 98.2 98.4 98.2 Pulse 107 96 Resp 20 18 B/P 122/85 118/91 Pulse Ox 95 94 95 O2 Delivery Room Air Nasal Cannula Room Air Room Air O2 Flow Rate 3.0 08/15/16 08/15/16 08/15/16 08:48 11:00 12:53 Temp 97.9 97.9 Pulse 96 Resp 20 B/P 124/87 Pulse Ox 95 94 94 O2 Delivery Room Air Room Air Room Air O2 Flow Rate 3.0 3.0 Intake and Output 08/14/16 08/14/16 08/15/16 15:00 23:00 07:00 Intake Total 1050 ml 3915 ml Output Total 1800 ml 1000 ml Balance -750 ml 2915 ml BENITEZ MAHAJAN K III DO Aug 15, 2016 13:48
[2016-08-15] MEDS ORDERED: POTASSIUM CHLORIDE 20 MEQ TABLET.ER. PO ONE (14:00)
[2016-08-15 15:00] VITALS: BP 123/92
[2016-08-15 19:00] VITALS: BP 133/102
[2016-08-15] MEDS: INSULIN DETEMIR 300 UNITS/3 ML INSULN.PEN. SQ SCH (21:49)
[2016-08-15] MEDS: IBUPROFEN 200 MG TABLET. PO PRN (22:32)
[2016-08-15 23:00] VITALS: BP 124/89
[2016-08-16] MEDS: MORPHINE SULFATE 2 MG/ML DISP.SYRIN. IV PRN ×8 (01:21→22:58)
[2016-08-16 03:00] VITALS: BP 118/84
[2016-08-16 04:02] LABS: BASO % 1 % (0-3); EOS % 1 % (0-3); HEMATOCRIT 30.1 % (36.0-47.0); HEMOGLOBIN 9.7 g/dL (12.0-15.5); LYMPH # 1.6 x10^3/uL (1.0-4.8); LYMPH % 48 % (24-48); MEAN CORPUSCULAR HEMOGLOBIN 29 pg (25-35); MEAN CORPUSCULAR HGB CONC 32 g/dL (31-37); MEAN CORPUSCULAR VOLUME 91 fL (79-100); MONO % 11 % (0-9); NEUT % 39 % (31-73); PLATELET COUNT 221 x10^3/uL (140-400); RED BLOOD COUNT 3.33 x10^6/uL (3.50-5.40); RED CELL DISTRIBUTION WIDTH 14.9 % (11.5-14.5); WHITE BLOOD COUNT 3.3 x10^3/uL (4.0-11.0)
[2016-08-16 04:14] LABS: CALCIUM 8.3 mg/dL (8.5-10.1); CREATININE 0.7 mg/dL (0.6-1.0); POTASSIUM 3.8 mmol/L (3.5-5.1)
--- NOTE | 2016-08-16 06:38 | PDOC ---
PULMONARY PROGRESS NOTES Subjective no sob, has pain in ct site. has cough. Vitals Vital Signs Date Time Temp Pulse Resp B/P Pulse Ox O2 Delivery O2 Flow Rate FiO2 08/16/16 04:59 20 96 Room Air 08/16/16 03:00 98.1 103 118/84 98.1 08/15/16 17:07 3.0 Comments ros as mentioned as above other sys otherwise neb ROS: No Chest Pain General: Alert HEENT: Other (nc at perrl nose throat clear) Lungs: Crackles, Other (r ct) Cardiovascular: S1, S2 Abdomen: Soft, Non-tender Neuro Exam: Alert, Oriented Extremities: No Edema Skin: Warm Labs Laboratory Tests Test 08/14/16 07:22 08/14/16 08:27 08/14/16 09:00 08/14/16 09:34 Glucose (Fingerstick) 325mg/dL (70-99) 224mg/dL (70-99) 173mg/dL (70-99) O2 Saturation 96% (92-99) Arterial Blood pH 7.36 (7.35-7.45) Arterial Blood pCO2 at Patient Temp 30mmHg (35-46) Arterial Blood pO2 at Patient Temp 86mmHg (85-108) Arterial Blood HCO3 16mmol/L (21-28) Arterial Blood Base Excess -8mmol/L (-3-3) FiO2 21 Test 08/14/16 10:48 08/14/16 11:00 08/14/16 11:56 08/14/16 13:04 Glucose (Fingerstick) 174mg/dL (70-99) 176mg/dL (70-99) 153mg/dL (70-99) Sodium Level 138mmol/L (136-145) Potassium Level 4.1mmol/L (3.5-5.1) Chloride Level 103mmol/L (98-107) Carbon Dioxide Level 23mmol/L (21-32) Anion Gap 12 (6-14) Blood Urea Nitrogen 30mg/dL (7-20) Creatinine 1.1mg/dL (0.6-1.0) Estimated GFR (Cockcroft-Gault) 60.5 Glucose Level 203mg/dL (70-99) Calcium Level 7.9mg/dL (8.5-10.1) Phosphorus Level 3.9mg/dL (2.6-4.7) Magnesium Level 2.1mg/dL (1.8-2.4) Test 08/14/16 14:19 08/14/16 15:44 08/14/16 17:10 08/14/16 19:05 Glucose (Fingerstick) 154mg/dL (70-99) 113mg/dL (70-99) 113mg/dL (70-99) 165mg/dL (70-99) Test 08/14/16 20:50 08/15/16 04:50 08/15/16 07:46 08/15/16 12:01 Glucose (Fingerstick) 305mg/dL (70-99) 102mg/dL (70-99) 169mg/dL (70-99) White Blood Count 10.3x10^3/uL (4.0-11.0) Red Blood Count 3.31x10^6/uL (3.50-5.40) Hemoglobin 9.9g/dL (12.0-15.5) Hematocrit 29.9% (36.0-47.0) Mean Corpuscular Volume 90fL (79-100) Mean Corpuscular Hemoglobin 30pg (25-35) Mean Corpuscular Hemoglobin Concent 33g/dL (31-37) Red Cell Distribution Width 14.9% (11.5-14.5) Platelet Count 266x10^3/uL (140-400) Neutrophils (%) (Auto) 63% (31-73) Lymphocytes (%) (Auto) 28% (24-48) Monocytes (%) (Auto) 7% (0-9) Eosinophils (%) (Auto) 1% (0-3) Basophils (%) (Auto) 1% (0-3) Neutrophils # (Auto) 6.5x10^3uL (1.8-7.7) Lymphocytes # (Auto) 2.9x10^3/uL (1.0-4.8) Monocytes # (Auto) 0.8x10^3/uL (0.0-1.1) Eosinophils # (Auto) 0.1x10^3/uL (0.0-0.7) Basophils # (Auto) 0.1x10^3/uL (0.0-0.2) Sodium Level 137mmol/L (136-145) Potassium Level 3.4mmol/L (3.5-5.1) Chloride Level 101mmol/L (98-107) Carbon Dioxide Level 25mmol/L (21-32) Anion Gap 11 (6-14) Blood Urea Nitrogen 17mg/dL (7-20) Creatinine 0.9mg/dL (0.6-1.0) Estimated GFR (Cockcroft-Gault) 76.3 Glucose Level 247mg/dL (70-99) Calcium Level 7.9mg/dL (8.5-10.1) Test 08/15/16 16:51 08/15/16 20:46 08/16/16 02:50 Glucose (Fingerstick) 293mg/dL (70-99) 223mg/dL (70-99) White Blood Count 3.3x10^3/uL (4.0-11.0) Red Blood Count 3.33x10^6/uL (3.50-5.40) Hemoglobin 9.7g/dL (12.0-15.5) Hematocrit 30.1% (36.0-47.0) Mean Corpuscular Volume 91fL (79-100) Mean Corpuscular Hemoglobin 29pg (25-35) Mean Corpuscular Hemoglobin Concent 32g/dL (31-37) Red Cell Distribution Width 14.9% (11.5-14.5) Platelet Count 221x10^3/uL (140-400) Neutrophils (%) (Auto) 39% (31-73) Lymphocytes (%) (Auto) 48% (24-48) Monocytes (%) (Auto) 11% (0-9) Eosinophils (%) (Auto) 1% (0-3) Basophils (%) (Auto) 1% (0-3) Neutrophils # (Auto) 1.3x10^3uL (1.8-7.7) Lymphocytes # (Auto) 1.6x10^3/uL (1.0-4.8) Monocytes # (Auto) 0.4x10^3/uL (0.0-1.1) Eosinophils # (Auto) 0.0x10^3/uL (0.0-0.7) Basophils # (Auto) 0.0x10^3/uL (0.0-0.2) Sodium Level 138mmol/L (136-145) Potassium Level 3.8mmol/L (3.5-5.1) Chloride Level 101mmol/L (98-107) Carbon Dioxide Level 25mmol/L (21-32) Anion Gap 12 (6-14) Blood Urea Nitrogen 14mg/dL (7-20) Creatinine 0.7mg/dL (0.6-1.0) Estimated GFR (Cockcroft-Gault) 102.0 Glucose Level 273mg/dL (70-99) Calcium Level 8.3mg/dL (8.5-10.1) Laboratory Tests Test 08/15/16 07:46 08/15/16 12:01 08/15/16 16:51 08/15/16 20:46 Glucose (Fingerstick) 102mg/dL (70-99) 169mg/dL (70-99) 293mg/dL (70-99) 223mg/dL (70-99) Test 08/16/16 02:50 White Blood Count 3.3x10^3/uL (4.0-11.0) Red Blood Count 3.33x10^6/uL (3.50-5.40) Hemoglobin 9.7g/dL (12.0-15.5) Hematocrit 30.1% (36.0-47.0) Mean Corpuscular Volume 91fL (79-100) Mean Corpuscular Hemoglobin 29pg (25-35) Mean Corpuscular Hemoglobin Concent 32g/dL (31-37) Red Cell Distribution Width 14.9% (11.5-14.5) Platelet Count 221x10^3/uL (140-400) Neutrophils (%) (Auto) 39% (31-73) Lymphocytes (%) (Auto) 48% (24-48) Monocytes (%) (Auto) 11% (0-9) Eosinophils (%) (Auto) 1% (0-3) Basophils (%) (Auto) 1% (0-3) Neutrophils # (Auto) 1.3x10^3uL (1.8-7.7) Lymphocytes # (Auto) 1.6x10^3/uL (1.0-4.8) Monocytes # (Auto) 0.4x10^3/uL (0.0-1.1) Eosinophils # (Auto) 0.0x10^3/uL (0.0-0.7) Basophils # (Auto) 0.0x10^3/uL (0.0-0.2) Sodium Level 138mmol/L (136-145) Potassium Level 3.8mmol/L (3.5-5.1) Chloride Level 101mmol/L (98-107) Carbon Dioxide Level 25mmol/L (21-32) Anion Gap 12 (6-14) Blood Urea Nitrogen 14mg/dL (7-20) Creatinine 0.7mg/dL (0.6-1.0) Estimated GFR (Cockcroft-Gault) 102.0 Glucose Level 273mg/dL (70-99) Calcium Level 8.3mg/dL (8.5-10.1) Comments cxr 08/15, r apical ptc Impression . IMPRESSION: 1. Pneumothorax, status post right subclavian catheter attempt. 2. Diabetic ketoacidosis. 3. Type 1 diabetes. 4. s/p Dehydration. 5. s/p Hyperkalemia. Plan . PLAN: 1. cont Chest tube, to water seal, will do cxr if ok will clamp , cxr in am if ok dc ct in am 2. pain control 3. start lovenox for dvt prophylaxis discussed w pt, rn, YVETTE ROSALES MD Aug 16, 2016 06:38
[2016-08-16 07:00] VITALS: BP 122/86
[2016-08-16] MEDS: IBUPROFEN 200 MG TABLET. PO PRN ×3 (07:52→22:58)
[2016-08-16] MEDS: ENOXAPARIN 40 MG/0.4 ML SYRINGE. SQ SCH (07:52)
[2016-08-16] MEDS: INSULIN ASPART 300 UNITS/3 ML INSULN.PEN SQ SCH ×3 (08:36→17:09)
--- NOTE | 2016-08-16 10:03 | RAD ---
CHEST AP ONLY Clinical Indication: ptx Comparison: August 15, 2016. Technique: Portable AP upright view of the chest is obtained. Findings: Right chest tube appears stable in position. No definite pneumothorax is seen bilaterally. No interval consolidation or pleural effusion is seen. Cardiomediastinal silhouette is within normal limits of size. Visualized osseous structures and overlying soft tissues demonstrate no acute interval change. IMPRESSION: No definite pneumothorax seen, stable positioning of a right chest tube.
--- NOTE | 2016-08-16 10:15 | PDOC ---
PROGRESS NOTES Chief Complaint Chief Complaint cc: DKA 1. Pneumothorax, status post right subclavian catheter attempt. 2. Diabetic ketoacidosis. resolved. 3. Type 1 diabetes with Hyperglycemia Plan CXR pneumothorax resolved, anticipated clamping today, pulmonology following SSI with Levemir labs improved possible chest tube removal in AM Monitor hemoglobin History of Present Illness History of Present Illness seen this after noon chest tube present no fever Vitals Vitals Vital Signs Date Time Temp Pulse Resp B/P Pulse Ox O2 Delivery O2 Flow Rate FiO2 08/16/16 08:21 96 Room Air 3.0 08/16/16 07:00 97.4 85 17 122/86 97.4 Physical Exam General: Alert, Oriented X3, Cooperative, Other (chest tube in place. ) Heart: Regular rate, Normal S1 Lungs: Clear, Other Abdomen: Soft, No tenderness Extremities: No cyanosis, No edema Skin: No rashes, No significant lesion Labs LABS Laboratory Tests Test 08/15/16 12:01 08/15/16 16:51 08/15/16 20:46 08/16/16 02:50 Glucose (Fingerstick) 169mg/dL (70-99) 293mg/dL (70-99) 223mg/dL (70-99) White Blood Count 3.3x10^3/uL (4.0-11.0) Red Blood Count 3.33x10^6/uL (3.50-5.40) Hemoglobin 9.7g/dL (12.0-15.5) Hematocrit 30.1% (36.0-47.0) Mean Corpuscular Volume 91fL (79-100) Mean Corpuscular Hemoglobin 29pg (25-35) Mean Corpuscular Hemoglobin Concent 32g/dL (31-37) Red Cell Distribution Width 14.9% (11.5-14.5) Platelet Count 221x10^3/uL (140-400) Neutrophils (%) (Auto) 39% (31-73) Lymphocytes (%) (Auto) 48% (24-48) Monocytes (%) (Auto) 11% (0-9) Eosinophils (%) (Auto) 1% (0-3) Basophils (%) (Auto) 1% (0-3) Neutrophils # (Auto) 1.3x10^3uL (1.8-7.7) Lymphocytes # (Auto) 1.6x10^3/uL (1.0-4.8) Monocytes # (Auto) 0.4x10^3/uL (0.0-1.1) Eosinophils # (Auto) 0.0x10^3/uL (0.0-0.7) Basophils # (Auto) 0.0x10^3/uL (0.0-0.2) Sodium Level 138mmol/L (136-145) Potassium Level 3.8mmol/L (3.5-5.1) Chloride Level 101mmol/L (98-107) Carbon Dioxide Level 25mmol/L (21-32) Anion Gap 12 (6-14) Blood Urea Nitrogen 14mg/dL (7-20) Creatinine 0.7mg/dL (0.6-1.0) Estimated GFR (Cockcroft-Gault) 102.0 Glucose Level 273mg/dL (70-99) Calcium Level 8.3mg/dL (8.5-10.1) Assessment and Plan Assessmemt and Plan Problems Medical Problems: (1) Dehydration Status: Acute (2) DKA (diabetic ketoacidoses) Status: Acute (3) Hyperkalemia Status: Acute (4) Pneumothorax on right Status: Acute Problems: Comment Review of Relevant I have reviewed the following items silverio (where applicable) has been applied. Labs Laboratory Tests Test 08/14/16 10:48 08/14/16 11:00 08/14/16 11:56 08/14/16 13:04 Glucose (Fingerstick) 174mg/dL (70-99) 176mg/dL (70-99) 153mg/dL (70-99) Sodium Level 138mmol/L (136-145) Potassium Level 4.1mmol/L (3.5-5.1) Chloride Level 103mmol/L (98-107) Carbon Dioxide Level 23mmol/L (21-32) Anion Gap 12 (6-14) Blood Urea Nitrogen 30mg/dL (7-20) Creatinine 1.1mg/dL (0.6-1.0) Estimated GFR (Cockcroft-Gault) 60.5 Glucose Level 203mg/dL (70-99) Calcium Level 7.9mg/dL (8.5-10.1) Phosphorus Level 3.9mg/dL (2.6-4.7) Magnesium Level 2.1mg/dL (1.8-2.4) Test 08/14/16 14:19 08/14/16 15:44 08/14/16 17:10 08/14/16 19:05 Glucose (Fingerstick) 154mg/dL (70-99) 113mg/dL (70-99) 113mg/dL (70-99) 165mg/dL (70-99) Test 08/14/16 20:50 08/15/16 04:50 08/15/16 07:46 08/15/16 12:01 Glucose (Fingerstick) 305mg/dL (70-99) 102mg/dL (70-99) 169mg/dL (70-99) White Blood Count 10.3x10^3/uL (4.0-11.0) Red Blood Count 3.31x10^6/uL (3.50-5.40) Hemoglobin 9.9g/dL (12.0-15.5) Hematocrit 29.9% (36.0-47.0) Mean Corpuscular Volume 90fL (79-100) Mean Corpuscular Hemoglobin 30pg (25-35) Mean Corpuscular Hemoglobin Concent 33g/dL (31-37) Red Cell Distribution Width 14.9% (11.5-14.5) Platelet Count 266x10^3/uL (140-400) Neutrophils (%) (Auto) 63% (31-73) Lymphocytes (%) (Auto) 28% (24-48) Monocytes (%) (Auto) 7% (0-9) Eosinophils (%) (Auto) 1% (0-3) Basophils (%) (Auto) 1% (0-3) Neutrophils # (Auto) 6.5x10^3uL (1.8-7.7) Lymphocytes # (Auto) 2.9x10^3/uL (1.0-4.8) Monocytes # (Auto) 0.8x10^3/uL (0.0-1.1) Eosinophils # (Auto) 0.1x10^3/uL (0.0-0.7) Basophils # (Auto) 0.1x10^3/uL (0.0-0.2) Sodium Level 137mmol/L (136-145) Potassium Level 3.4mmol/L (3.5-5.1) Chloride Level 101mmol/L (98-107) Carbon Dioxide Level 25mmol/L (21-32) Anion Gap 11 (6-14) Blood Urea Nitrogen 17mg/dL (7-20) Creatinine 0.9mg/dL (0.6-1.0) Estimated GFR (Cockcroft-Gault) 76.3 Glucose Level 247mg/dL (70-99) Calcium Level 7.9mg/dL (8.5-10.1) Test 08/15/16 16:51 08/15/16 20:46 08/16/16 02:50 Glucose (Fingerstick) 293mg/dL (70-99) 223mg/dL (70-99) White Blood Count 3.3x10^3/uL (4.0-11.0) Red Blood Count 3.33x10^6/uL (3.50-5.40) Hemoglobin 9.7g/dL (12.0-15.5) Hematocrit 30.1% (36.0-47.0) Mean Corpuscular Volume 91fL (79-100) Mean Corpuscular Hemoglobin 29pg (25-35) Mean Corpuscular Hemoglobin Concent 32g/dL (31-37) Red Cell Distribution Width 14.9% (11.5-14.5) Platelet Count 221x10^3/uL (140-400) Neutrophils (%) (Auto) 39% (31-73) Lymphocytes (%) (Auto) 48% (24-48) Monocytes (%) (Auto) 11% (0-9) Eosinophils (%) (Auto) 1% (0-3) Basophils (%) (Auto) 1% (0-3) Neutrophils # (Auto) 1.3x10^3uL (1.8-7.7) Lymphocytes # (Auto) 1.6x10^3/uL (1.0-4.8) Monocytes # (Auto) 0.4x10^3/uL (0.0-1.1) Eosinophils # (Auto) 0.0x10^3/uL (0.0-0.7) Basophils # (Auto) 0.0x10^3/uL (0.0-0.2) Sodium Level 138mmol/L (136-145) Potassium Level 3.8mmol/L (3.5-5.1) Chloride Level 101mmol/L (98-107) Carbon Dioxide Level 25mmol/L (21-32) Anion Gap 12 (6-14) Blood Urea Nitrogen 14mg/dL (7-20) Creatinine 0.7mg/dL (0.6-1.0) Estimated GFR (Cockcroft-Gault) 102.0 Glucose Level 273mg/dL (70-99) Calcium Level 8.3mg/dL (8.5-10.1) Laboratory Tests Test 08/15/16 12:01 08/15/16 16:51 08/15/16 20:46 08/16/16 02:50 Glucose (Fingerstick) 169mg/dL (70-99) 293mg/dL (70-99) 223mg/dL (70-99) White Blood Count 3.3x10^3/uL (4.0-11.0) Red Blood Count 3.33x10^6/uL (3.50-5.40) Hemoglobin 9.7g/dL (12.0-15.5) Hematocrit 30.1% (36.0-47.0) Mean Corpuscular Volume 91fL (79-100) Mean Corpuscular Hemoglobin 29pg (25-35) Mean Corpuscular Hemoglobin Concent 32g/dL (31-37) Red Cell Distribution Width 14.9% (11.5-14.5) Platelet Count 221x10^3/uL (140-400) Neutrophils (%) (Auto) 39% (31-73) Lymphocytes (%) (Auto) 48% (24-48) Monocytes (%) (Auto) 11% (0-9) Eosinophils (%) (Auto) 1% (0-3) Basophils (%) (Auto) 1% (0-3) Neutrophils # (Auto) 1.3x10^3uL (1.8-7.7) Lymphocytes # (Auto) 1.6x10^3/uL (1.0-4.8) Monocytes # (Auto) 0.4x10^3/uL (0.0-1.1) Eosinophils # (Auto) 0.0x10^3/uL (0.0-0.7) Basophils # (Auto) 0.0x10^3/uL (0.0-0.2) Sodium Level 138mmol/L (136-145) Potassium Level 3.8mmol/L (3.5-5.1) Chloride Level 101mmol/L (98-107) Carbon Dioxide Level 25mmol/L (21-32) Anion Gap 12 (6-14) Blood Urea Nitrogen 14mg/dL (7-20) Creatinine 0.7mg/dL (0.6-1.0) Estimated GFR (Cockcroft-Gault) 102.0 Glucose Level 273mg/dL (70-99) Calcium Level 8.3mg/dL (8.5-10.1) Medications Current Medications Insulin Human Regular (Novolin R Iv Drip) 150 ml @ 0 mls/hr 1X ONCE IV Last administered on 08/14/16 04:11; Start 08/14/16 at 03:00; Stop 08/14/16 at 18:48 ; Status DC Insulin Human Regular 10 unit 10 unit 1X ONCE IV Last administered on 03:27; Start 08/14/16 at 03:30; Stop 08/14/16 at 03:31; Status DC Sodium Chloride 1,000 ml @ 1,000 mls/hr 1X ONCE IV Last administered on 03:00; Start 08/14/16 at 03:30; Stop 08/14/16 at 04:29; Status DC Sodium Chloride (Iv Sodium Chloride 0.9% 1000ml Bag) 1,000 ml @ 1,000 mls/hr 1X ONCE IV Last administered on 08/14/16 03:00; Start 08/14/16 at 03:30; Stop 08/14/16 at 04:29; Status DC Ondansetron HCl (Zofran) 4 mg 1X ONCE IV Last administered on 08/14/16 04:00 ; Start 08/14/16 at 04:00; Stop 08/14/16 at 04:01; Status DC Lidocaine/Sodium Bicarbonate (Buffered Lidocaine 1%) 20 ml STK-MED ONCE IJ ; Start 08/14/16 at 03:33; Stop 08/14/16 at 03:34; Status DC Lorazepam (Ativan) 1 mg 1X ONCE IV Last administered on 08/14/16 04:00; Start 08/14/16 at 04:00; Stop 08/14/16 at 04:01; Status DC Hydromorphone HCl (Dilaudid) 1 mg 1X ONCE IV Last administered on 08/14/16 04 :03; Start 08/14/16 at 04:00; Stop 08/14/16 at 04:01; Status DC Lidocaine/Sodium Bicarbonate 20 ml 20 ml 1X ONCE IJ Last administered on 04:30; Start 08/14/16 at 05:00; Stop 08/14/16 at 05:11; Status DC Sodium Chloride 1,000 ml @ 1,000 mls/hr 1X ONCE IV Last administered on 05:00; Start 08/14/16 at 05:00; Stop 08/14/16 at 05:59; Status DC Sodium Chloride (Iv Sodium Chloride 0.9% 1000ml Bag) 1,000 ml @ 1,000 mls/hr 1X ONCE IV Last administered on 08/14/16 05:04; Start 08/14/16 at 05:15; Stop 08/14/16 at 06:14; Status DC Ondansetron HCl (Zofran) 4 mg PRN Q8HRS PRN IV NAUSEA/VOMITING; Start 08/14/16 at 05:15; Stop 08/15/16 at 05:14; Status DC Morphine Sulfate 2 mg 2 mg PRN Q2HR PRN IV SEVERE PAIN Last administered on 21:22; Start 08/14/16 at 05:15; Stop 08/15/16 at 05:14; Status DC Sodium Chloride 1,000 ml @ 200 mls/hr Q5H IV ; Start 08/14/16 at 05:10; Stop at 10:03; Status DC Insulin Human Regular 150 unit/ Sodium Chloride 151.5 ml @ 0 mls/hr CONT PRN PRN IV PER PROTOCOL; Start 08/14/16 at 05:30; Stop 08/14/16 at 18:48; Status DC Sodium Bicarbonate 50 meq/Sodium Chloride 1,050 ml @ 500 mls/hr Q2H6M IV Last administered on 08/14/16 08:07; Start 08/14/16 at 06:00; Stop 08/14/16 at 10:03 ; Status DC Dextrose/Sodium Chloride (Iv D5% - NS) 1,000 ml @ 250 mls/hr Q4H PRN IV . Last administered on 08/14/16 18:27; Start 08/14/16 at 10:15; Stop 08/14/16 at 18:48 ; Status DC Insulin Detemir (Levemir) 20 units QHS SQ Last administered on 08/15/16 21:49 ; Start 08/14/16 at 21:00 Morphine Sulfate 2 mg PRN Q2HR PRN IV PAIN SEVERE Last administered on 07:51; Start 08/15/16 at 08:00 Ondansetron HCl (Zofran) 4 mg PRN Q6HRS PRN IV NAUSEA/VOMITING 1ST CHOICE; Start 08/15/16 at 08:00 Insulin Aspart (Novolog) 0-9 UNITS TIDWMEALS SQ Last administered on 08/16/16 08:36; Start 08/15/16 at 08:00 Dextrose (Dextrose 50%-Water Syringe) 12.5 gm PRN Q15MIN PRN IV SEE COMMENTS; Start 08/15/16 at 08:00 Potassium Chloride (Klor-Con) 40 meq 1X ONCE PO Last administered on 17:06; Start 08/15/16 at 14:00; Stop 08/15/16 at 14:04; Status DC Ibuprofen (Motrin) 200 mg PRN Q4HRS PRN PO INFLAMMATION Last administered on 07:52; Start 08/15/16 at 22:15 Enoxaparin Sodium (Lovenox 40mg Syringe) 40 mg Q24H SQ Last administered on 07:52; Start 08/16/16 at 07:00 Vitals/I & O Vital Sign - Last 24 Hours 08/15/16 08/15/16 08/15/16 08/15/16 11:00 12:53 15:00 17:07 Temp 97.9 98.4 97.9 98.4 Pulse 96 92 Resp 20 17 B/P 124/87 123/92 Pulse Ox 94 94 95 94 O2 Delivery Room Air Room Air Room Air Room Air O2 Flow Rate 3.0 3.0 08/15/16 08/15/16 08/15/16 4/15/17 19:00 19:47 20:00 20:17 Temp 101.3 101.3 Pulse 105 Resp 18 20 20 B/P 133/102 Pulse Ox 95 94 O2 Delivery Room Air Room Air Room Air 08/15/16 08/15/16 08/16/16 08/16/16 21:59 23:00 01:21 03:00 Temp 100.2 98.1 100.2 98.1 Pulse 97 103 Resp 18 18 20 18 B/P 124/89 118/84 Pulse Ox 94 95 95 96 O2 Delivery Room Air Room Air Room Air Room Air 08/16/16 08/16/16 08/16/16 08/16/16 04:59 07:00 07:51 08:00 Temp 97.4 97.4 Pulse 85 Resp 17 B/P 122/86 Pulse Ox 96 95 96 O2 Delivery Room Air Room Air Room Air Room Air O2 Flow Rate 3.0 08/16/16 08:21 Pulse Ox 96 O2 Delivery Room Air O2 Flow Rate 3.0 Intake and Output 08/15/16 08/15/16 08/16/16 15:00 23:00 07:00 Intake Total 220 ml 220 ml 240 ml Output Total 1600 ml 300 ml Balance -1380 ml 220 ml -60 ml TIRSO VERA MD Aug 16, 2016 10:15
[2016-08-16 11:00] VITALS: BP 131/90
[2016-08-16 15:00] VITALS: BP 134/96
[2016-08-16 19:00] VITALS: BP 142/98
[2016-08-16] MEDS ORDERED: INSULIN DETEMIR 300 UNITS/3 ML INSULN.PEN. SQ SCH (21:00)
[2016-08-16] MEDS ORDERED: INSULIN ASPART 300 UNITS/3 ML INSULN.PEN SQ ONE (21:00)
[2016-08-16 23:00] VITALS: BP 129/95
[2016-08-17] MEDS: MORPHINE SULFATE 2 MG/ML DISP.SYRIN. IV PRN ×7 (01:42→19:13)
[2016-08-17 03:00] VITALS: BP 120/84
[2016-08-17 04:37] LABS: BASO % 1 % (0-3); EOS % 2 % (0-3); HEMATOCRIT 29.6 % (36.0-47.0); HEMOGLOBIN 9.8 g/dL (12.0-15.5); LYMPH # 1.4 x10^3/uL (1.0-4.8); LYMPH % 49 % (24-48); MEAN CORPUSCULAR HEMOGLOBIN 30 pg (25-35); MEAN CORPUSCULAR HGB CONC 33 g/dL (31-37); MEAN CORPUSCULAR VOLUME 90 fL (79-100); MONO % 10 % (0-9); NEUT % 38 % (31-73); PLATELET COUNT 199 x10^3/uL (140-400); RED CELL DISTRIBUTION WIDTH 14.3 % (11.5-14.5); WHITE BLOOD COUNT 2.8 x10^3/uL (4.0-11.0)
[2016-08-17 04:56] LABS: CALCIUM 8.3 mg/dL (8.5-10.1); CREATININE 0.5 mg/dL (0.6-1.0); GFR 150.3
[2016-08-17] MEDS: ENOXAPARIN 40 MG/0.4 ML SYRINGE. SQ SCH (06:29)
[2016-08-17 07:20] VITALS: BP 133/93
[2016-08-17] MEDS: IBUPROFEN 200 MG TABLET. PO PRN (07:26)
--- NOTE | 2016-08-17 08:49 | RAD ---
Indication pneumothorax. PA and lateral views of the chest were obtained. Comparison is made to an examination one day earlier. The heart and pulmonary vessels are unremarkable. The lungs are clear. There is no area of significant atelectasis seen. Again noted is a right chest tube. No appreciable pneumothorax is seen. A significant change in the appearance of the chest compared to the previous exam is not seen. IMPRESSION: No acute finding. Right chest tube. No appreciable pneumothorax
[2016-08-17] MEDS: INSULIN ASPART 300 UNITS/3 ML INSULN.PEN SQ SCH ×5 (08:53→17:10)
[2016-08-17 10:55] VITALS: BP 131/92
[2016-08-17] MEDS ORDERED: POTASSIUM CHLORIDE 20 MEQ TABLET.ER. PO ONE (11:00)
[2016-08-17] MEDS ORDERED: INSU100I27 SQ (11:11)
[2016-08-17] MEDS ORDERED: TRAM-29 PO (11:11)
[2016-08-17] MEDS ORDERED: INSU100I17 SQ (11:11)
[2016-08-17] MEDS ORDERED: MAGNESIUM SULFATE 2GM 50 ML IV ONE (11:30)
[2016-08-17 15:00] VITALS: BP 141/101
--- NOTE | 2016-08-17 18:30 | PDOC ---
PULMONARY PROGRESS NOTES Subjective no sob, has pain in ct site. has cough. Vitals Vital Signs Date Time Temp Pulse Resp B/P Pulse Ox O2 Delivery O2 Flow Rate FiO2 08/17/16 17:04 Room Air 08/17/16 15:00 97.5 94 18 141/101 99 97.5 08/17/16 08:00 3.0 Comments ros as mentioned as above other sys otherwise neb ROS: No Chest Pain General: Alert HEENT: Other (nc at perrl nose throat clear) Lungs: Clear, Other Cardiovascular: S1, S2 Abdomen: Soft, Non-tender Neuro Exam: Alert, Oriented Extremities: No Edema Skin: Warm Labs Laboratory Tests Test 08/15/16 20:46 08/16/16 02:50 08/16/16 08:24 08/16/16 10:18 Glucose (Fingerstick) 223mg/dL (70-99) 246mg/dL (70-99) 218mg/dL (70-99) White Blood Count 3.3x10^3/uL (4.0-11.0) Red Blood Count 3.33x10^6/uL (3.50-5.40) Hemoglobin 9.7g/dL (12.0-15.5) Hematocrit 30.1% (36.0-47.0) Mean Corpuscular Volume 91fL (79-100) Mean Corpuscular Hemoglobin 29pg (25-35) Mean Corpuscular Hemoglobin Concent 32g/dL (31-37) Red Cell Distribution Width 14.9% (11.5-14.5) Platelet Count 221x10^3/uL (140-400) Neutrophils (%) (Auto) 39% (31-73) Lymphocytes (%) (Auto) 48% (24-48) Monocytes (%) (Auto) 11% (0-9) Eosinophils (%) (Auto) 1% (0-3) Basophils (%) (Auto) 1% (0-3) Neutrophils # (Auto) 1.3x10^3uL (1.8-7.7) Lymphocytes # (Auto) 1.6x10^3/uL (1.0-4.8) Monocytes # (Auto) 0.4x10^3/uL (0.0-1.1) Eosinophils # (Auto) 0.0x10^3/uL (0.0-0.7) Basophils # (Auto) 0.0x10^3/uL (0.0-0.2) Sodium Level 138mmol/L (136-145) Potassium Level 3.8mmol/L (3.5-5.1) Chloride Level 101mmol/L (98-107) Carbon Dioxide Level 25mmol/L (21-32) Anion Gap 12 (6-14) Blood Urea Nitrogen 14mg/dL (7-20) Creatinine 0.7mg/dL (0.6-1.0) Estimated GFR (Cockcroft-Gault) 102.0 Glucose Level 273mg/dL (70-99) Calcium Level 8.3mg/dL (8.5-10.1) Test 08/16/16 16:53 08/16/16 20:52 08/17/16 03:00 08/17/16 07:23 Glucose (Fingerstick) 325mg/dL (70-99) 368mg/dL (70-99) 166mg/dL (70-99) White Blood Count 2.8x10^3/uL (4.0-11.0) Red Blood Count 3.30x10^6/uL (3.50-5.40) Hemoglobin 9.8g/dL (12.0-15.5) Hematocrit 29.6% (36.0-47.0) Mean Corpuscular Volume 90fL (79-100) Mean Corpuscular Hemoglobin 30pg (25-35) Mean Corpuscular Hemoglobin Concent 33g/dL (31-37) Red Cell Distribution Width 14.3% (11.5-14.5) Platelet Count 199x10^3/uL (140-400) Neutrophils (%) (Auto) 38% (31-73) Lymphocytes (%) (Auto) 49% (24-48) Monocytes (%) (Auto) 10% (0-9) Eosinophils (%) (Auto) 2% (0-3) Basophils (%) (Auto) 1% (0-3) Neutrophils # (Auto) 1.1x10^3uL (1.8-7.7) Lymphocytes # (Auto) 1.4x10^3/uL (1.0-4.8) Monocytes # (Auto) 0.3x10^3/uL (0.0-1.1) Eosinophils # (Auto) 0.0x10^3/uL (0.0-0.7) Basophils # (Auto) 0.0x10^3/uL (0.0-0.2) Sodium Level 143mmol/L (136-145) Potassium Level 3.0mmol/L (3.5-5.1) Chloride Level 104mmol/L (98-107) Carbon Dioxide Level 31mmol/L (21-32) Anion Gap 8 (6-14) Blood Urea Nitrogen 10mg/dL (7-20) Creatinine 0.5mg/dL (0.6-1.0) Estimated GFR (Cockcroft-Gault) 150.3 Glucose Level 94mg/dL (70-99) Calcium Level 8.3mg/dL (8.5-10.1) Test 08/17/16 10:56 08/17/16 16:37 Glucose (Fingerstick) 130mg/dL (70-99) 168mg/dL (70-99) Laboratory Tests Test 08/16/16 20:52 08/17/16 03:00 08/17/16 07:23 08/17/16 10:56 Glucose (Fingerstick) 368mg/dL (70-99) 166mg/dL (70-99) 130mg/dL (70-99) White Blood Count 2.8x10^3/uL (4.0-11.0) Red Blood Count 3.30x10^6/uL (3.50-5.40) Hemoglobin 9.8g/dL (12.0-15.5) Hematocrit 29.6% (36.0-47.0) Mean Corpuscular Volume 90fL (79-100) Mean Corpuscular Hemoglobin 30pg (25-35) Mean Corpuscular Hemoglobin Concent 33g/dL (31-37) Red Cell Distribution Width 14.3% (11.5-14.5) Platelet Count 199x10^3/uL (140-400) Neutrophils (%) (Auto) 38% (31-73) Lymphocytes (%) (Auto) 49% (24-48) Monocytes (%) (Auto) 10% (0-9) Eosinophils (%) (Auto) 2% (0-3) Basophils (%) (Auto) 1% (0-3) Neutrophils # (Auto) 1.1x10^3uL (1.8-7.7) Lymphocytes # (Auto) 1.4x10^3/uL (1.0-4.8) Monocytes # (Auto) 0.3x10^3/uL (0.0-1.1) Eosinophils # (Auto) 0.0x10^3/uL (0.0-0.7) Basophils # (Auto) 0.0x10^3/uL (0.0-0.2) Sodium Level 143mmol/L (136-145) Potassium Level 3.0mmol/L (3.5-5.1) Chloride Level 104mmol/L (98-107) Carbon Dioxide Level 31mmol/L (21-32) Anion Gap 8 (6-14) Blood Urea Nitrogen 10mg/dL (7-20) Creatinine 0.5mg/dL (0.6-1.0) Estimated GFR (Cockcroft-Gault) 150.3 Glucose Level 94mg/dL (70-99) Calcium Level 8.3mg/dL (8.5-10.1) Test 08/17/16 16:37 Glucose (Fingerstick) 168mg/dL (70-99) Medications Active Scripts Medications Dose Route/Sig Days Date Category Ultram (Tramadol Hcl) 50 Mg Tablet 1 Tab PO Q6HRS PRN 08/17/16 Rx Comments cxr 08/15, r apical ptc Impression . IMPRESSION: 1. Pneumothorax, status post right subclavian catheter attempt. 2. Diabetic ketoacidosis. 3. Type 1 diabetes. 4. s/p Dehydration. 5. s/p Hyperkalemia. Plan . d/c chest tube and d/c home JEFF NEW MD Aug 17, 2016 18:30
[2016-08-18] MEDS ORDERED: POTASSIUM CHLORIDE 20 MEQ TABLET.ER. PO SCH (08:00)
== END 2016-08-17 19:30 | disposition home or self-care (01) | DRG 199 ==
LOC: ER 01:15 → 1 WEST ICU 03:11 → 5 NORTH 20:14
PROVIDERS: ADMIT Internal Medicine; ATTEND Internal Medicine
PROC: 0W9930Z Drainage of Right Pleural Cavity with Drainage Device, Percutaneous Approach (ICD-10-PCS; principal; 2016-08-15)
DX: J95.811 Postprocedural pneumothorax (principal); E10.10 Type 1 diabetes mellitus with ketoacidosis without coma; E86.0 Dehydration; E87.6 Hypokalemia; E87.5 Hyperkalemia; F12.90 Cannabis use, unspecified, uncomplicated; R06.82 Tachypnea, not elsewhere classified; R20.0 Anesthesia of skin; R00.0 Tachycardia, unspecified; F41.9 Anxiety disorder, unspecified; Z88.8 Allergy status to other drugs, medicaments and biological substances; Z79.4 Long term (current) use of insulin; Z88.6 Allergy status to analgesic agent; Z91.048 Other nonmedicinal substance allergy status; Y83.8 Other surgical procedures as the cause of abnormal reaction of the patient, or of later complication, without mention of misadventure at the time of the procedure; Y92.238 Other place in hospital as the place of occurrence of the external cause
CPT/HCPCS: 36415; 71010; 71020; 80048; 80053; 82805; 82947; 83735; 84100; 85007; 85027; 87641; 96361; 96365; 96375; J1170; J1650; J1815; J2060; J2270; J2405; J7030; J7042; J7060; 99291-25

== ENCOUNTER 2018-04-03 14:16 | Inpatient (IN) | payer SELFPAY ==
[~2018-04-03] VITALS: Ht 170.2 cm; Wt 59.0 kg
[~2018-04-03 14:16] MED LIST: INSU100C4 SQ; INSU100I17 SQ; INSU100I27 SQ; LEXAPRO10 MG PO; MAGN400C PO; METO10TA81 PO; ONDA4TAB10 SL; PANT40TA3 PO; POTA20TA4 PO; TRAM-48 PO; TRAM50TA PO
[2018-04-03 17:29] VITALS: BP 108/73
[2018-04-03] MEDS ORDERED: INSU100V13 SQ ×2 (17:40)
[2018-04-03] MEDS ORDERED: FAMO-63 PO (17:41)
[2018-04-03 19:41] VITALS: BP 108/69
[2018-04-03] MEDS ORDERED: ONDANSETRON PF 4 MG/2 ML VIAL. IV PRN (20:30)
[2018-04-03] MEDS ORDERED: DEXTROSE 50% 25 GM / 50ML DISP.SYRIN. IV PRN (20:45)
[2018-04-03] MEDS: METOCLOPRAMIDE HCL 10 MG/2 ML VIAL. IV SCH (20:47)
[2018-04-03] MEDS: IV NORMAL SALINE 1000ML BAG 1,000 ML IV SCH (20:48)
[2018-04-03] MEDS: PANTOPRAZOLE IV PUSH 40 MG VIAL. IVP SCH (20:48)
[2018-04-03] MEDS ORDERED: INSULIN GLARGINE 300 UNITS/3 ML INSULN.PEN. SQ SCH (21:00)
[2018-04-03 23:00] VITALS: BP 93/65
[2018-04-04 03:00] VITALS: BP 98/64
[2018-04-04] MEDS: IV NORMAL SALINE 1000ML BAG 1,000 ML IV SCH (06:13)
[2018-04-04 07:00] VITALS: BP 111/78
[2018-04-04] MEDS ORDERED: NON FORMULARY ITEM (Insulin Aspart (Novolog Flexpen) 0 UNITS) SQ SCH (08:00)
[2018-04-04] MEDS: PANTOPRAZOLE IV PUSH 40 MG VIAL. IVP SCH (08:19)
[2018-04-04] MEDS: METOCLOPRAMIDE HCL 10 MG/2 ML VIAL. IV SCH ×2 (08:19→14:34)
[2018-04-04 08:22] LABS: HEMATOCRIT 32.4 % (36.0-47.0); HEMOGLOBIN 11.1 g/dL (12.0-15.5); RED BLOOD COUNT 3.6 x10^6/uL (3.50-5.40); RED CELL DISTRIBUTION WIDTH 15.4 % (11.5-14.5); WHITE BLOOD COUNT 4.4 x10^3/uL (4.0-11.0)
--- NOTE | 2018-04-04 08:43 | HP ---
ADMIT DATE: 04/03/2018 HISTORY OF PRESENT ILLNESS: The patient is a 27-year-old female patient who yet again came to the Emergency Room complaining of severe chest pain, described as a burning sensation in her lower abdomen, describes as feeling like razor blades. She was admitted recently to [facility] with the same complaint, and we extensively investigated her including EKGs, cardiac enzymes, CT scan of the chest, abdomen and pelvis and abdominal ultrasound. Her EKG was unremarkable. CT scan of the chest showed no evidence of any pulmonary emboli. No pneumothorax, pleural effusion, no pericardial effusion. An EKG showed no evidence of any pericarditis or myocardial ischemia and has 3 sets of cardiac enzymes that were negative. Her serum lipase was normal. CT scan of the abdomen and pelvis was unremarkable as well as the abdominal ultrasound, and we treated her with proton pump inhibitor with instruction for treatment of her gastroesophageal reflux disease. Unfortunately, the patient is a frequent visitor to [facility], she is almost a day or every other day, and she is not willing to take care of herself or control her diabetes, and she is constantly back and forth despite multiple attempts to teach her to take care of her own diabetes and live her life. We have had the instruction by the learning and development manager, several physicians, nursing and staff nurses at [facility], and she is basically a frequent visitor to [facility], and if she is not there, she is probably at [facility] and occasionally she makes it all the way here to [place]. As we have already treated her with for gastroesophageal reflux with omeprazole and for her possible diabetic gastroparesis, for prokinetic, she continued to have these complaints. I recommended that she be admitted directly here to consult the drug discovery informatics specialist for possible upper GI endoscopy and further recommendation. PAST MEDICAL HISTORY: Significant for 1. Type 1 diabetes mellitus. 2. Diabetic gastroparesis. 3. Diabetic peripheral neuropathy. 4. The patient is very noncompliant and has been admitted to [facility] numerous times for diabetic ketoacidosis. She comes in with severe hyperglycemia. As soon as her symptoms improved, she most times leaves against medical advice. She is difficult vascular access. She had Port-A-Cath placement and removal. PAST SURGICAL HISTORY: Significant for incision of left axillary abscess, Port-A-Cath placement and removal as well as probable upper GI endoscopy before. Other surgical procedures include a right ear surgery x 3, right eye surgery x 3 and she has had pneumothorax, status post chest tube placement. FAMILY HISTORY: Unremarkable. SOCIAL HISTORY: She currently lives with her sister and [id number]. She claims that she quit smoking. She also claimed that she quit using crystal methamphetamine. REVIEW OF SYSTEMS: The patient denied any blurring of vision, cataract, glaucoma or macular degeneration. Denied any earache, tinnitus or sensorineural deafness. Denied any nosebleeds, stuffy nose or postnasal drip. Denied any sore throat, sore tongue, toothache, hoarseness of voice or difficulty swallowing. She continued to complain of severe burning sensation that is retrosternal and goes below her breasts bilaterally, however, denied any nausea or vomiting. Denied any diarrhea or constipation. Denied any hematemesis, melena, hematochezia. Denied any dysuria, frequency or hematuria. PHYSICAL EXAMINATION: GENERAL: On examining her, she looked well and was clearly in no apparent respiratory distress. No pallor, jaundice, cyanosis or thyromegaly. No jugular venous distension. No lower limb edema. VITAL SIGNS: Her heart rate was 98, blood pressure was 108/73, temperature was 97, respiratory rate was 20 and oxygen saturation was 95% on room air. HEAD, EYES, EARS, NOSE AND THROAT: Showed normocephalic, atraumatic. NECK: Supple. HEART: Showed normal first and second heart sounds with no gallop, rub or murmur. CHEST: Clear to auscultation. No crepitation or rhonchi. ABDOMEN: Distended, soft, nontender. No guarding or rigidity. No organomegaly. All hernial orifice intact. Bowel sounds normal. NEUROLOGIC: She was awake, alert, responding appropriately. Cranial nerves intact. She moves extremities without difficulty. She ambulates without assistance or assistive devices. LABORATORY DATA: While at [facility] Emergency [facility], she had lab work done, which showed a white cell count 5700, hemoglobin 13, hematocrit 40, MCV was 90 and platelet count of 356,000, with normal manual differential. Her chemistry showed that her serum sodium was 132, potassium 4.6, chloride 95, bicarbonate 29, glucose was 412, BUN 19, creatinine 0.8, estimated GFR was 86 mL per minute. Total protein was 7.5, albumin 3.9, calcium was 9.3. Total bilirubin, AST, ALT, alkaline phosphatase were normal. PLAN: My plan is to continue on all her medication including her Levemir, 20 units in the morning and 10 units at bedtime. She is also on NovoLog insulin as per insulin sliding scale. She is on metoclopramide 10 mg before meals and bedtime. She is on Protonix 40 mg daily and ondansetron 4 mg sublingually as needed. ALLERGIES: SHE IS ALLERGIC TO ACETAMINOPHEN AND ADHESIVE TAPE. I did order repeat lab work including serum lipase and consult GI Services for further evaluation and treatment. FAVIOLA GUSMAN MD DR: MICHELLE/david JOB#: [id number] / [id number]
[2018-04-04] MEDS ORDERED: INSULIN GLARGINE 300 UNITS/3 ML INSULN.PEN. SQ SCH (09:00)
[2018-04-04 09:01] LABS: ALBUMIN 2.9 g/dL (3.4-5.0); CALCIUM 8.3 mg/dL (8.5-10.1); CREATININE 0.6 mg/dL (0.6-1.0); GFR 119.9; POTASSIUM 4.5 mmol/L (3.5-5.1); TOTAL BILIRUBIN 0.3 mg/dL (0.2-1.0); TOTAL PROTEIN 5.9 g/dL (6.4-8.2)
[2018-04-04] MEDS: INSULIN LISPRO 300 UNITS/3 ML INSULN.PEN. SQ SCH ×2 (09:15→12:00)
--- NOTE | 2018-04-04 09:34 | PDOC2 ---
GI CONSULT Reason For Consult: Uncontrolled GERD HPI: HPI: 27 y/o transferred from [facility]. We have seen her in the past. H/o poorly controlled DM (says last A1c was 9, down from 11), glucose 412 yesterday. Chronic n/v and abd pain, h/o gastroparesis on Reglan 10mg pills QIDACHS. Had a "flare" last month w/ increased n/v x 3 weeks, now better (tolerated breakfast this morning). Says she lost 30 pounds. After that, increased heartburn and "hot razor blade" pain in epigastrium and chest. H/o heartburn on Prilosec OTC for a couple months, recently switched to Protonix which she thinks helps. Used to be on Zofran, wasn't able to fill recent Rx. Has NSAID and acetaminophen allergies, usually just goes to the ER for pain meds if she needs them. Past workup as below. No colonoscopy, GB, liver, or pancreas history. GI cocktail helps but only briefly so she doesn't want to try this anymore. Would like something for pain. Denies dysphagia, hematemesis, diarrhea, constipation, hematochezia, and melena. GES 12/2015: T1/2 127 min. EGD w/ Dr. Whaley 03/2016 for n/v and epigastric pain: gastritis (no H. pylori). Path report, antral biopsy 08/2016: unrevealing. Abd US 03/2018: mild dilatation of CBD (7mm), no cholelithiasis or cholecystitis. PMH: PMH: DM (type 1), gastroparesis, pyelonephritis, ovarian cysts, substance abuse, pneumothorax, right ankle biopsy, right foot surgery, right eye surgery x 3, right ear surgery x 3, port-a-cath placement/removal, I&D axillary abscess, chest tube placement FH: Family History: Other (brother - ulcers, sister - cholecystectomy) Social History: Smoke: Quit ALCOHOL: none Drugs: Crystal meth (in the past) ROS: GEN: Denies fevers, chills, sweats HEENT: Denies blurred vision, sore throat CV: +chest pain RESP: Denies shortness of air, cough GI: Per HPI : Denies hematuria, dysuria ENDO: +weight loss NEURO: Denies confusion, dizziness MSK: Denies weakness, joint pain/swelling SKIN: Denies jaundice, pruritus Vitals: Vitals: Vital Signs Date Time Temp Pulse Resp B/P (MAP) Pulse Ox O2 Delivery O2 Flow Rate FiO2 04/04/18 07:00 97.7 93 16 111/78 (89) 98 Room Air 97.7 Labs: Labs: Laboratory Tests Test 04/03/18 20:49 04/04/18 07:45 04/04/18 08:39 Glucose (Fingerstick) 231 mg/dL (70-99) 366 mg/dL (70-99) White Blood Count 4.4 x10^3/uL (4.0-11.0) Red Blood Count 3.60 x10^6/uL (3.50-5.40) Hemoglobin 11.1 g/dL (12.0-15.5) Hematocrit 32.4 % (36.0-47.0) Mean Corpuscular Volume 90 fL (79-100) Mean Corpuscular Hemoglobin 31 pg (25-35) Mean Corpuscular Hemoglobin Concent 34 g/dL (31-37) Red Cell Distribution Width 15.4 % (11.5-14.5) Platelet Count 272 x10^3/uL (140-400) Sodium Level 135 mmol/L (136-145) Potassium Level 4.5 mmol/L (3.5-5.1) Chloride Level 102 mmol/L (98-107) Carbon Dioxide Level 26 mmol/L (21-32) Anion Gap 7 (6-14) Blood Urea Nitrogen 15 mg/dL (7-20) Creatinine 0.6 mg/dL (0.6-1.0) Estimated GFR (Cockcroft-Gault) 119.9 BUN/Creatinine Ratio 25 (6-20) Glucose Level 321 mg/dL (70-99) Calcium Level 8.3 mg/dL (8.5-10.1) Total Bilirubin 0.3 mg/dL (0.2-1.0) Aspartate Amino Transf (AST/SGOT) 13 U/L (15-37) Alanine Aminotransferase (ALT/SGPT) 23 U/L (14-59) Alkaline Phosphatase 82 U/L (46-116) Total Protein 5.9 g/dL (6.4-8.2) Albumin 2.9 g/dL (3.4-5.0) Albumin/Globulin Ratio 1.0 (1.0-1.7) Lipase 48 U/L (73-393) Allergies: Coded Allergies: acetaminophen (Verified Allergy, Intermediate, 08/14/16) adhesive tape (Verified Allergy, Intermediate, 08/14/16) Medications: Current Medications Medications (Trade) Dose Ordered Sig/Armand Route PRN Reason Start Time Stop Time Status Last Admin Dose Admin Insulin Glargine (Lantus) 10 units QHS SQ 04/03/18 21:00 04/03/18 20:53 Insulin Glargine (Lantus) 20 units DAILY SQ 04/04/18 09:00 04/04/18 09:16 Metoclopramide HCl (Reglan Vial) 10 mg QIDACHS IV 04/03/18 21:00 04/04/18 08:19 Pantoprazole Sodium (PROTONIX VIAL for IV PUSH) 40 mg BIDWMEALS IVP 04/03/18 21:00 04/04/18 08:19 Sodium Chloride 1,000 ml @ 100 mls/hr Q10H IV 04/03/18 20:30 04/03/18 20:48 Insulin Human Lispro (HumaLOG) 0-9 UNITS TIDWMEALS SQ 04/04/18 08:00 04/04/18 09:15 Imaging: Imaging: Per HPI. PE: GEN: NAD HEENT: Atraumatic, PERRL LUNGS: CTAB HEART: RRR ABD: NABS, S/ND - does not seem tender during my exam EXTREMITY: No edema SKIN: No rashes, no jaundice NEURO/PSYCH: A & O 3 A/P: A/P: Uncontrolled DM Chronic n/v, abd pain, h/o gastroparesis and GERD - recent flare of vomiting, now "razor blade" pain in epigastrium and chest Mild CBD dilatation - normal LFTs H/o substance abuse, ?drug-seeking -- Past workup per HPI. Getting IV Reglan and IV PPI - apparently tolerating food, so could transition to PO (would use Reglan suspension). Pain control per primary. HARSHAD CORRIGAN Apr 04, 2018 09:34
[2018-04-04 11:00] VITALS: BP 115/71
[2018-04-04] MEDS ORDERED: METO5SOL PO (14:54)
[2018-04-04 15:00] VITALS: BP 126/87
--- NOTE | 2018-04-05 09:14 | DS ---
DATE OF DISCHARGE: 04/04/2018 HOSPITAL COURSE: The patient is a 27-year-old female patient, who has been in and out of [facility] numerous times. She has been complaining of chest pain that is retrosternal, said that she feels it under both breasts that she describes as hot razor blade in the epigastric and chest. She has been on Prilosec, as well as Protonix and Reglan for her diabetic gastroparesis. We have investigated her numerous times, we did multiple testing including CT angio of the chest, abdominal ultrasound and lab work and none of them were revealing and decision was made to bring her to the [facility] for the gastroenterology team to evaluate and treat as she apparently has had abdominal ultrasound, which showed mild dilatation of common bile duct, no cholelithiasis or cholecystitis. Her lab work was unrevealing. Her white cell count was normal and she was seen in consultation by the sign language interpreter. The sign language interpreter recommended switching her to liquid formulation of prokinetic and continue PPI and that she can be discharged. The patient opted to go home, so was discharged and we called in prescription for her liquid Reglan and to continue with all her other medications. PHYSICAL EXAMINATION: GENERAL: Prior to discharge, the patient looked well and was clearly in no apparent respiratory distress; pale; no jaundice, cyanosis, or thyromegaly. No jugular venous distension. No limb edema. VITAL SIGNS: Her heart rate was 79, blood pressure was 126/87, temperature was 98.1, respiratory rate was 18 and oxygen saturation was 99%. HEAD, EYES, EARS, NOSE AND THROAT: Showed normocephalic, atraumatic. NECK: Supple. HEART: Showed normal first and second sounds. No gallop, rub or murmur. CHEST: Clear to auscultation. No crepitation or rhonchi. ABDOMEN: Scaphoid, soft, nontender. No guarding or rigidity. No organomegaly. All hernial orifices intact. Bowel sounds normal. NEUROLOGIC: She was awake, alert, responding appropriately. All cranial nerves intact. She moves extremities without difficulty. LABORATORY DATA: Her lab work showed a white cell count of 4400; hemoglobin 11; hematocrit 32; MCV 90 and platelet count 272,000. Serum sodium was 135, potassium 4.5, chloride 102, bicarbonate 26, anion gap of 7, BUN 15, creatinine 0.6, estimated GFR was 119 mL per minute. Her glucose was 321, calcium was 8.3. Total bilirubin, AST, ALT, alkaline phosphatase were normal. Total protein was 5.9, albumin was 2.9. Serum lipase was 48. DISCHARGE MEDICATIONS: The patient was discharged home to continue on Reglan and all other medication. FINAL DISCHARGE DIAGNOSES: Gastroesophageal reflux disease, diabetic gastroparesis, poorly controlled type 1 diabetes mellitus, recurrent admissions, diabetic ketoacidosis. FAVIOLA GUSMAN MD DR: MICHELLE/david JOB#: [id number] / [id number]
== END 2018-04-04 18:30 | disposition home or self-care (01) | DRG 637 ==
LOC: 6 SOUTH 17:04
PROVIDERS: ADMIT Internal Medicine; ATTEND Internal Medicine
DX: E10.65 Type 1 diabetes mellitus with hyperglycemia (principal); E10.10 Type 1 diabetes mellitus with ketoacidosis without coma; E10.43 Type 1 diabetes mellitus with diabetic autonomic (poly)neuropathy; K21.9 Gastro-esophageal reflux disease without esophagitis; K83.8 Other specified diseases of biliary tract; K31.84 Gastroparesis; Z79.4 Long term (current) use of insulin; Z87.891 Personal history of nicotine dependence; Z88.6 Allergy status to analgesic agent; Z91.19 Patient's noncompliance with other medical treatment and regimen; Z88.8 Allergy status to other drugs, medicaments and biological substances; Z79.899 Other long term (current) drug therapy
CPT/HCPCS: 36415; 80053; 82962; 83690; 85027; C9113; J1815; J2765; J7030

== ENCOUNTER 2020-06-28 19:50 | Inpatient (IN) | payer SELFPAY ==
[~2020-06-28] VITALS: Ht 172.7 cm; Wt 56.0 kg
[~2020-06-28 19:50] MED LIST changes: +FAMO-63 PO; +INSU100V13 SQ; +METO5SOL PO; -PANT40TA3 PO; +PANT40TA77 PO
[2020-06-28 20:00] VITALS: BP 77/31
[2020-06-28] MEDS ORDERED: POTASSIUM CHLORIDE 10MEQ 100 ML IV PRN ×3 (20:15)
[2020-06-28] MEDS ORDERED: IV NORMAL SALINE 1000ML BAG 1,000 ML IV SCH (20:30)
[2020-06-28] MEDS ORDERED: INSULIN REGULAR VIAL 100 UNIT in IV NORMAL SALINE 100ML 100 ML IV PRN (20:30)
[2020-06-28 20:56] LABS: BASO % 0 % (0-3); EOS % 0 % (0-3); HEMATOCRIT 32.7 % (36.0-47.0); HEMOGLOBIN 10.4 g/dL (12.0-15.5); LYMPH # 0.9 x10^3/uL (1.0-4.8); LYMPH % 6 % (24-48); MEAN CORPUSCULAR HEMOGLOBIN 29 pg (25-35); MEAN CORPUSCULAR HGB CONC 32 g/dL (31-37); MEAN CORPUSCULAR VOLUME 93 fL (79-100); MONO # 0.9 x10^3/uL (0.0-1.1); MONO % 6 % (0-9); NEUT # 14.3 x10^3/uL (1.8-7.7); NEUT % 89 % (31-73); PLATELET COUNT 277 x10^3/uL (140-400); RED BLOOD COUNT 3.53 x10^6/uL (3.50-5.40); RED CELL DISTRIBUTION WIDTH 14.8 % (11.5-14.5); WHITE BLOOD COUNT 16.2 x10^3/uL (4.0-11.0)
[2020-06-28 21:00] VITALS: BP 92/41
--- NOTE | 2020-06-28 21:00 | NUR ---
Patient came in by bed with EMS from [facility] @ [id number]. Patient was oriented to call light, bed controls, visitation policies. Patient stated a 9/10 pain around the abdomen area. Called Dr. Hernandez for orders- DKA protocol ordered and started. Patient is currently sleeping but arousable.
[2020-06-28 21:09] LABS: CALCIUM 7.9 mg/dL (8.5-10.1); CREATININE 1.7 mg/dL (0.6-1.0); GFR 35.5; MAGNESIUM 1.9 mg/dL (1.8-2.4); PHOSPHORUS 6.1 mg/dL (2.6-4.7)
[2020-06-28] MEDS: fentaNYL PF VIAL 100 MCG/2 ML VIAL IVP PRN (21:11)
[2020-06-28 21:23] LABS: POTASSIUM 6.8 mmol/L (3.5-5.1)
[2020-06-28 21:26] LABS: % LYMPHS 11 % (24-48); % MONOS 5 % (0-10); % SEGS 84 % (35-66)
[2020-06-28 21:27] LABS: ACANTHOCYTES FEW; BURR CELLS FEW; PLT ESTIMATE ADEQUATE (ADEQUATE)
[2020-06-28 21:30] LABS: SCHISTOCYTES OCC
[2020-06-28 21:33] LABS: POIKILOCYTOSIS SLIGHT
[2020-06-28 22:00] VITALS: BP 103/54
[2020-06-28 23:00] VITALS: BP 102/62
[2020-06-29] VITALS (15 sets, daily range): BP systolic 92–147; BP diastolic 47–88
[2020-06-29 02:55] LABS: CALCIUM 7.3 mg/dL (8.5-10.1); CREATININE 1.4 mg/dL (0.6-1.0); GFR 44.5; MAGNESIUM 1.9 mg/dL (1.8-2.4); PHOSPHORUS 2.7 mg/dL (2.6-4.7); POTASSIUM 3.6 mmol/L (3.5-5.1)
[2020-06-29] MEDS: fentaNYL PF VIAL 100 MCG/2 ML VIAL IVP PRN ×3 (04:29→23:33)
[2020-06-29] MEDS: INSULIN LISPRO 300 UNITS/3 ML VIAL. SQ SCH ×3 (07:57→17:51)
[2020-06-29] MEDS: oxyCODONE/APAP 5/325 1 TAB TABLET PO PRN ×4 (08:00→22:02)
[2020-06-29] MEDS: ONDANSETRON PF 4 MG/2 ML VIAL. IVP PRN (08:09)
--- NOTE | 2020-06-29 08:50 | HP ---
ADMIT DATE: 06/29/2020 HISTORY OF PRESENT ILLNESS: The patient is a 29-year-old female patient who yet again came to the Emergency Room of [facility] with complaining of recurrent bouts of nausea, vomiting and severe abdominal pain. She has been seen in the Emergency Room numerous times and admitted to [facility] and at this hospital numerous times for diabetic ketoacidosis. According to her, she took her 20 units of Lantus insulin yesterday morning, but she has not taken any of her other insulin. Her symptoms started about 2 hours later. When I checked, her blood sugar was very high and the only thing different is that she complaining of diffuse abdominal pain. She was extensively investigated in the Emergency Room and was found to have a blood sugar of 500. She also has dilutional hyponatremia, mild hyperkalemia and high anion gap metabolic acidosis. She was also dehydrated and her white cell count was slightly elevated at 11,700 and urinalysis showed that she has large amount of glycosuria as well as high ketonuria. She also has moderate amount of leukocyte esterase and too numerous to count wbc's. She was started on insulin drip and IV fluid and was transferred to [facility] ICU to continue with treatment according to the DKA protocol. PAST MEDICAL HISTORY: She is known to have type 1 diabetes mellitus, for which she was admitted numerous times to both [facility] and [facility]. Her other medical problems include peripheral neuropathy, diabetic gastroparesis, polysubstance abuse including methamphetamine at least before. PAST SURGICAL HISTORY: Significant for Port-A-Cath placement and removal, incision and drainage of left axillary abscess, multiple EGDs and gastric emptying studies. She also has 3 surgery on her eyes and 3 ear surgeries and right foot surgery. Biopsy of her right ankle joint as well as ovarian cystectomy. ALLERGIES: SHE IS ALLERGIC TO ACETAMINOPHEN AND ADHESIVE TAPE. FAMILY HISTORY: Noncontributory. SOCIAL HISTORY: She is single. She apparently lives with her sister and her [id number]. She does not smoke. Said that she is clean now for almost 5 months, according to her. PHYSICAL EXAMINATION: GENERAL: On arrival to the Emergency Room, there was no pallor, jaundice or cyanosis. No lymphadenopathy, no thyromegaly. No jugular venous distention. No lower limb edema. VITAL SIGNS: Her heart rate was 119, blood pressure was 125/65, her temperature was 98.6, respiratory rate was 20, and oxygen saturation was 98%. HEAD, EYES, EARS, NOSE AND THROAT: Showed normocephalic, atraumatic. NECK: Supple. HEART: Showed normal first and second heart sounds. No gallop or murmur. CHEST: Clear to auscultation. No crepitation or rhonchi. ABDOMEN: Distended, soft, nontender. NEUROLOGIC: She was grossly intact. LABORATORY WORK: On arrival to the Emergency Room showed a white cell count of 11,700, hemoglobin 12.7, hematocrit 39.9, MCV 93, and platelet count 333,000 with a manual differential showed 92% polymorphs, 5% lymphocytes. Her chemistry showed serum sodium of 132, potassium 5.1, chloride 90, bicarbonate 14, anion gap of 28, BUN of 42, creatinine 1.5, estimated GFR was 41 mL per minute. Her glucose was 531, calcium was 9.6. Total bilirubin, ALT and alkaline phosphatase are slightly elevated. AST is normal. Total protein 7.7, albumin was 3.6. Her urinalysis showed the urine was yellow, cloudy with a pH of 8.5, specific gravity of 1.020. Her urinalysis showed that there is large amount of glucose, large amount of ketones, negative for nitrite, but moderate amount of leukocyte esterase, 11-20 rbc's, and too numerous to count wbc's. The patient was started on IV fluid and insulin drip and was transferred to [facility] where she was continued on insulin drip and IV fluid as per diabetic ketoacidosis protocol. FAVIOLA GUSMAN MD DR: MICHELLE/david JOB#: [id number] / [id number]
[2020-06-29 08:56] LABS: HEMATOCRIT 31.3 % (36.0-47.0); HEMOGLOBIN 10.4 g/dL (12.0-15.5); RED BLOOD COUNT 3.57 x10^6/uL (3.50-5.40); RED CELL DISTRIBUTION WIDTH 15.1 % (11.5-14.5); WHITE BLOOD COUNT 16.8 x10^3/uL (4.0-11.0)
--- NOTE | 2020-06-29 09:02 | PN ---
DATE: SUBJECTIVE: The patient is resting, slightly propped up in bed, no apparent distress. She continued to complain of abdominal pain, although clinical exam is unremarkable, has had also some episodes of retching and vomiting. PHYSICAL EXAMINATION: GENERAL: When I examined her this morning, she looked well and was clearly in no apparent respiratory distress. No pallor, jaundice, cyanosis or thyromegaly. No jugular venous distention or limb edema. VITAL SIGNS: Her heart rate was 116, blood pressure was 92/48, temperature was 92.2, respiratory rate was 16, and oxygen saturation was 100% on room air. The rest of clinical exam is stable. LABORATORY DATA: Her lab work shortly after she arrived to the ICU showed a serum sodium 134, potassium 3.6, chloride 102, bicarbonate 15, anion gap of 17, BUN 40, creatinine 1.4, estimated GFR was 44, glucose was 321, calcium was 7.3, phosphorus 2.7, magnesium 1.9. ASSESSMENT AND PLAN: This is a 29-year-old female patient who is yet again coming with another episode of diabetic ketoacidosis, severe dilutional hyponatremia, dehydration, slightly improving. She also has a UTI for which we will start on Rocephin and once her blood sugar improves, we will start her on a regular diet and start her on insulin sliding scale as well as her regular insulin. FAVIOLA GUSMAN MD DR: MICHELLE/david JOB#: [id number] / [id number]
[2020-06-29 09:20] LABS: MAGNESIUM 1.9 mg/dL (1.8-2.4); PHOSPHORUS 2.7 mg/dL (2.6-4.7)
[2020-06-29 09:21] LABS: ALBUMIN 3.1 g/dL (3.4-5.0); CALCIUM 7.8 mg/dL (8.5-10.1); CREATININE 1.1 mg/dL (0.6-1.0); GFR 58.7; POTASSIUM 3.8 mmol/L (3.5-5.1); TOTAL BILIRUBIN 0.7 mg/dL (0.2-1.0); TOTAL PROTEIN 6.1 g/dL (6.4-8.2)
[2020-06-29] MEDS: cefTRIAXone IV Push 1 GM VIAL. IVP SCH (09:45)
[2020-06-29] MEDS: INSULIN GLARGINE SYRINGE. SQ SCH ×2 (09:46→21:25)
--- NOTE | 2020-06-29 17:13 | NUR ---
Patient was transferred from ICU to room 416. Assumed patient care around 5pm. Patient was alert and was left comfortable in bed with a call light in reach.
[2020-06-29 17:14] LABS: CALCIUM 7.8 mg/dL (8.5-10.1); CREATININE 0.9 mg/dL (0.6-1.0); POTASSIUM 4.2 mmol/L (3.5-5.1)
[2020-06-30] MEDS: fentaNYL PF VIAL 100 MCG/2 ML VIAL IVP PRN ×6 (01:37→20:28)
[2020-06-30 03:00] VITALS: BP 124/77
[2020-06-30] MEDS: oxyCODONE/APAP 5/325 1 TAB TABLET PO PRN ×3 (03:37→14:46)
[2020-06-30 05:42] LABS: HEMOGLOBIN A1C 8.9 % (4.8-5.6)
[2020-06-30 07:00] VITALS: BP 133/86
[2020-06-30] MEDS: INSULIN LISPRO 300 UNITS/3 ML VIAL. SQ SCH ×3 (08:00→17:00)
[2020-06-30] MEDS: DEXTROSE 50% 25 GM / 50ML DISP.SYRIN. IV PRN ×3 (08:16→23:50)
[2020-06-30] MEDS: cefTRIAXone IV Push 1 GM VIAL. IVP SCH (09:00)
[2020-06-30] MEDS: INSULIN GLARGINE SYRINGE. SQ SCH ×2 (09:19→21:12)
--- NOTE | 2020-06-30 09:57 | NUR ---
Patient has a critical BS of 38. Dr. Hernandez was paged and notified and ordered received. Recheck blood sugar was 274.
--- NOTE | 2020-06-30 10:52 | PN ---
DATE: 06/30/2020 SUBJECTIVE: The patient is resting, slightly propped up in bed, sleeping comfortably. She apparently has an episode of hypoglycemia this morning, for which she received 50 mL of 50% dextrose and she ate her breakfast, although she unfortunately vomited. PHYSICAL EXAMINATION: GENERAL: When I examined her, she was pale, but no jaundice, cyanosis or thyromegaly. No jugular venous distension. No lower limb edema. VITAL SIGNS: Her heart rate was 79, blood pressure was 133/86, temperature 98, respiratory rate was 20, and oxygen saturation was 98%. HEAD, EYES, EARS, NOSE AND THROAT: Showed normocephalic, atraumatic. NECK: Supple. HEART: Showed normal first and second heart sounds. No gallop, rub or murmur. CHEST: Clear to auscultation. No crepitation or rhonchi. ABDOMEN: Distended, soft, nontender. NEUROLOGIC: She is sleepy, but arousable. All cranial nerves are intact. She moves extremities without difficulty. Her intake over the last 24 hours was 3140, output was 1050. LABORATORY DATA: As of this morning, her lab work is still pending at the time of this dictation. ASSESSMENT: Diabetic ketoacidosis, resolved. Her anion gap came down from 27 down to 14 and dilutional hyponatremia, resolved; acute kidney injury also improved. Her creatinine came down from 1.7-0.9. PLAN: To continue with her Lantus insulin 20 units twice a day together with insulin sliding scale. Continue with IV ceftriaxone. I will repeat her lab work this morning and hopefully if she is stable, she can be discharged home tomorrow. FAVIOLA GUSMAN MD DR: MICHELLE/david JOB#: [id number] / [id number]
[2020-06-30 11:00] VITALS: BP 153/108
[2020-06-30] MEDS: ONDANSETRON PF 4 MG/2 ML VIAL. IVP PRN (11:32)
[2020-06-30 11:45] LABS: HEMATOCRIT 31.2 % (36.0-47.0); HEMOGLOBIN 10.5 g/dL (12.0-15.5); RED BLOOD COUNT 3.53 x10^6/uL (3.50-5.40); WHITE BLOOD COUNT 7.8 x10^3/uL (4.0-11.0)
[2020-06-30 12:01] LABS: ALBUMIN 2.7 g/dL (3.4-5.0); TOTAL PROTEIN 5.8 g/dL (6.4-8.2)
[2020-06-30 12:02] LABS: ALBUMIN/GLOBULIN RATIO 0.9 (1.0-1.7); CALCIUM 7.7 mg/dL (8.5-10.1); CREATININE 0.7 mg/dL (0.6-1.0); GFR 98.9; POTASSIUM 3.5 mmol/L (3.5-5.1); TOTAL BILIRUBIN 0.3 mg/dL (0.2-1.0)
[2020-06-30] MEDS: METOCLOPRAMIDE HCL 10 MG/2 ML VIAL. IVP PRN ×3 (13:26→20:29)
[2020-06-30 15:00] VITALS: BP 138/92
--- NOTE | 2020-06-30 17:07 | NUR ---
Dr. Hernandez was paged and notified about patient blood sugar was at 35 around 5 pm. Order received.
[2020-06-30] MEDS ORDERED: CONTRAST GIVEN. MC PRN (17:30)
[2020-06-30] MEDS ORDERED: IOHEXOL 300 MG/ML 100ML VIAL. IV ONE (17:30)
[2020-06-30] MEDS ORDERED: IOHEXOL 240 MG/ML 50ML VIAL. PO ONE (17:30)
--- NOTE | 2020-06-30 17:55 | NUR ---
Recheck blood sugar was 162
--- NOTE | 2020-06-30 17:57 | RAD ---
Exam: CT of abdomen and pelvis with contrast INDICATION: Persistent abdominal pain TECHNIQUE: Sequential axial images through the abdomen and pelvis obtained following the administrati on of 75 mL of Isovue-370 IV contrast. Sagittal and coronal reformatted images were reconstructed fro m the axial data and reviewed. Comparisons: 06/10/2019 FINDINGS: Heart size is normal. No pericardial effusion. Visualized lung bases are clear. No pleural effusion. Liver, spleen, gallbladder and adrenals are unremarkable. Pancreas is atrophic and not well seen. No perinephric inflammation or hydronephrosis. Nonobstructing 2 mm calculus at the upper pole of the left kidney. No ureteral calculi are identified. Bladder is distended and appears thin-walled. Uterus is nonenlarged. No abnormal adnexal mass. Large and small bowel are unremarkable. Appendix is normal. No free intra-abdominal air or fluid. No obstruction. Abdominal aorta has a normal course and caliber. Abdominal vasculature is patent. No enlarged intra-abdominal lymph nodes are identified. No suspicious osseous lesions or acute fractures. IMPRESSION: 1. There is mild intrahepatic biliary ductal dilatation. Recommend correlation with LFTs. Gallbladde r is also mildly distended. 2. Distended bladder, correlate for bladder outlet obstruction. 3. Nonobstructing 2 mm calculus the upper pole of the left kidney. Exposure: One or more of the following in the visualized dose reduction techniques were utilized for this examination: 1. Automated exposure control 2. Adjustment of the MA and/or KV according to patient size 3. Use of iterative of reconstructive technique Electronically signed by: Valentina Self MD (06/30/2020 5:55 PM) [facility]
[2020-06-30 19:00] VITALS: BP 151/96
[2020-06-30] MEDS: IV DEXTROSE 5% 1,000 ML IV SCH (20:00)
[2020-06-30] MEDS: LACTOBACILLUS RHAMNOSUS GG 1 CAPSULE. PO SCH (21:00)
[2020-06-30 23:00] VITALS: BP 132/82
[2020-07-01] MEDS: DEXTROSE 50% 25 GM / 50ML DISP.SYRIN. IV PRN ×3 (00:31→08:19)
[2020-07-01] MEDS: fentaNYL PF VIAL 100 MCG/2 ML VIAL IVP PRN ×4 (00:32→08:19)
[2020-07-01 03:00] VITALS: BP 138/81
[2020-07-01] MEDS: IV DEXTROSE 5% 1,000 ML IV SCH ×2 (04:16→16:00)
--- NOTE | 2020-07-01 05:59 | RAD ---
EXAM: RIGHT UPPER QUADRANT ULTRASOUND. HISTORY: Abdominal pain and vomiting. COMPARISON: 06/30/2020. FINDINGS: Sonographic evaluation of the right upper quadrant was performed. The liver appears normal in parenchymal echotexture. There are no focal lesions. The gallbladder is unremarkable without evidence of stones, wall thickening or pericholecystic fluid. There is no sonographic Grajeda sign. The common duct measures 6 mm. The visualized portions of the head of the pancreas appear atrophic. The right kidney measures 12.7 cm. Cortical thickness and echogenicity are preserved. There is no hyd ronephrosis. The visualized portions of the abdominal aorta and inferior vena cava are grossly patent and normal i n caliber. IMPRESSION: 1. Prominent common duct for patient age at 6 mm. No cause for distal obstruction is seen. 2. The pancreatic head appears atrophic. Electronically signed by: Irving Cueva MD (07/01/2020 5:57 AM) [facility]
[2020-07-01 07:15] VITALS: BP 150/95
[2020-07-01 07:30] LABS: BASO % 1 % (0-3); EOS # 0.1 x10^3/uL (0.0-0.7); EOS % 1 % (0-3); HEMATOCRIT 28.7 % (36.0-47.0); HEMOGLOBIN 9.8 g/dL (12.0-15.5); LYMPH # 1.9 x10^3/uL (1.0-4.8); LYMPH % 41 % (24-48); MEAN CORPUSCULAR HEMOGLOBIN 30 pg (25-35); MEAN CORPUSCULAR HGB CONC 34 g/dL (31-37); MEAN CORPUSCULAR VOLUME 87 fL (79-100); MONO # 0.4 x10^3/uL (0.0-1.1); MONO % 10 % (0-9); NEUT # 2.1 x10^3/uL (1.8-7.7); NEUT % 47 % (31-73); PLATELET COUNT 268 x10^3/uL (140-400); RED CELL DISTRIBUTION WIDTH 14.9 % (11.5-14.5); WHITE BLOOD COUNT 4.5 x10^3/uL (4.0-11.0)
[2020-07-01 07:45] LABS: ALBUMIN 2.6 g/dL (3.4-5.0); ALBUMIN/GLOBULIN RATIO 0.9 (1.0-1.7); CALCIUM 7.9 mg/dL (8.5-10.1); CREATININE 0.5 mg/dL (0.6-1.0); GFR 145.9; TOTAL BILIRUBIN 0.4 mg/dL (0.2-1.0); TOTAL PROTEIN 5.4 g/dL (6.4-8.2)
[2020-07-01 07:52] LABS: POTASSIUM 2.8 mmol/L (3.5-5.1)
[2020-07-01] MEDS: INSULIN LISPRO 300 UNITS/3 ML VIAL. SQ SCH ×3 (08:00→17:00)
[2020-07-01] MEDS ORDERED: POTASSIUM CL 20MEQ IN D5W 1,000 ML IV SCH (08:00)
[2020-07-01] MEDS: cefTRIAXone IV Push 1 GM VIAL. IVP SCH ×2 (08:26→10:10)
[2020-07-01] MEDS: LACTOBACILLUS RHAMNOSUS GG 1 CAPSULE. PO SCH (08:31)
[2020-07-01] MEDS: METOCLOPRAMIDE HCL 10 MG/2 ML VIAL. IVP PRN (08:31)
[2020-07-01] MEDS: INSULIN GLARGINE SYRINGE. SQ SCH (08:31)
[2020-07-01] MEDS ORDERED: POTASSIUM CHLORIDE 40 MEQ in IV DEXTROSE 5% 1,000 ML IV SCH (09:00)
[2020-07-01] MEDS ORDERED: KETOROLAC 30 MG/ML VIAL. IVP PRN (10:00)
[2020-07-01] MEDS: oxyCODONE/APAP 5/325 1 TAB TABLET PO PRN (10:14)
[2020-07-01 10:30] VITALS: BP 153/98
--- NOTE | 2020-07-01 10:30 | PN ---
DATE: 07/01/2020 SUBJECTIVE: The patient is resting, slightly propped up in bed, in no apparent respiratory distress. She is awake, alert, continued to complain of abdominal pain. We did extensive lab work and imaging studies. Her lab work this morning showed that her white cell count was normal. Her hemoglobin and hematocrit as well as platelets are normal. Her chemistry showed that she has potassium of 2.8; however, her anion gap is closed. Her kidney function has completely normalized from 1.7-0.5. She has had persistent nausea and vomiting yesterday complaining of severe abdominal pain and apparently probably the narcotic just making her nausea and vomiting worse. She has had a CT scan of the abdomen and pelvis, which basically showed that there is mild intrahepatic biliary ductal dilatation. I recommend correlation with LFTs. Gallbladder is also mildly distended. Distended bladder correlated with bladder outlet obstruction, nonobstructing 2 mm calculus in the upper pole of the left kidney. Her abdominal ultrasound showed prominent common bile duct for patient's stage of 60 mm. No cause for distal obstruction is seen. The pancreatic head appears atrophic. PHYSICAL EXAMINATION: GENERAL: When I examined her this morning, she was pale, but no jaundice, cyanosis or thyromegaly. No jugular venous distension. No limb edema. VITAL SIGNS: Her heart rate was 76, blood pressure 150/95, temperature 98.6, respiratory rate was 18 and oxygen saturation was 96%. HEAD, EYES, EARS, NOSE AND THROAT: Showed normocephalic, atraumatic. NECK: Supple. HEART: Showed normal first and second heart sounds. No gallop, rub or murmur. CHEST: Clear to auscultation. No crepitation or rhonchi. ABDOMEN: Scaphoid, soft, nontender. There is no guarding or rigidity. No organomegaly. All hernial orifice intact. Bowel sounds normal. NEUROLOGIC: She is awake, alert, responding appropriately. All cranial nerves intact. She moves extremities without difficulty. Her intake over the last 24 hours was 4950, output was 1500. LABORATORY DATA: As of this morning, her serum sodium was 138, potassium 2.8, chloride 102, bicarbonate 31, anion gap of 5, BUN 5, creatinine 0.5, estimated GFR was 145 mL per minute. Her glucose was 61, calcium was 7.9. Total bilirubin, AST, ALT, alkaline phosphatase were normal. Total protein 5.4, albumin was 2.6. ASSESSMENT: Diabetic ketoacidosis, resolved. Her anion gap is closed from 27 down to 5; acute kidney injury, resolved; her creatinine came down from 1.7-0.5; hypokalemia for which she is now on D5W with 40 mEq of potassium chloride, and the patient has also urinary tract infection for which she was treated with IV Rocephin. Her urine culture has grown more than 100,000 colony forming units per mL Staphylococcus epidermidis from a urine sample taken to the Emergency Room of [facility] on 06/28/2020. PLAN: My plan is to advance her diet. Continue with sliding scale insulin. I would consult the Gastroenterology team to assist with her intractable nausea and vomiting and if she is tolerating her diet and has no further episodes of nausea and vomiting, her blood sugars are well controlled, she can be discharged home, hopefully tomorrow. FAVIOLA GUSMAN MD DR: MICHELLE/david JOB#: [id number] / [id number]
[2020-07-01] MEDS ORDERED: PANTOPRAZOLE IV PUSH 40 MG VIAL. IVP SCH (11:30)
[2020-07-01] MEDS ORDERED: PANTOPRAZOLE 40 MG TABLET.DR. PO SCH (11:30)
--- NOTE | 2020-07-01 11:34 | PDOC2 ---
GI CONSULT Date of Service: DATE: 07/01/20 TIME: 11:15 Reason For Consult: intractable nausea and vomiting HPI: HPI: 29 y/o female who we have seen in the past. H/o poorly controlled diabetes and gastroparesis. Transferred to [facility] from [facility] on 06/29 w/ DKA and UTI, also has ongoing issues w/ n/v and abd pain. D/w Dr. Hernandez. She reports issues w/ n/v and abd pain for a couple weeks. Denies precipitating events. Throws up immediately after having a sip of water or chicken broth. Abdominal pain is really bad - starts on the sides and shoots to the middle. Pain is worse during vomiting. Before this episode, had no GI issues for quite awhile. Says her doctor stopped many medications except for insulin - she was no longer taking any type of acid- automobile body customizer or prokinetic. Has been on IV Reglan TID PRN here. Past workup: Chronic anemia. GES 12/2015: T1/2 127 min. EGD w/ Dr. Whaley 03/2016 for n/v and epigastric pain: gastritis (no H. pylori). Path report, antral biopsy 08/2016: unrevealing. Abd US 03/2018: mild dilatation of CBD (7mm), no cholelithiasis or cholecystitis. Denies reflux/heartburn, dysphagia, diarrhea, constipation, hematochezia, melena, and weight loss. No GB, liver, pancreas, or PUD history. No previous colonoscopy. Has some oxycodone at home - leftover from recent surgery, used PRN. No NSAIDs. PMH: PMH: DM, pyelonephritis, substance abuse, pneumothorax right ankle biopsy, right foot surgery, right eye surgeries, right ear surgeries, port placement/removal, I&D axillary abscess, chest tube, left ovarian cystectomy and resection of endometriosis FH: Family History: Other (brother - ulcers, sister - cholecystectomy) Social History: Smoke: Quit ALCOHOL: none Drugs: Other (meth in past) ROS: GEN: Denies fevers, chills, sweats HEENT: Denies blurred vision, sore throat CV: Denies chest pain RESP: Denies shortness of air, cough GI: Per HPI : Denies hematuria, dysuria ENDO: Denies weight changes NEURO: Denies confusion, dizziness MSK: Denies weakness, joint pain/swelling SKIN: Denies jaundice, pruritus Vitals: Vitals: Vital Signs Date Time Temp Pulse Resp B/P (MAP) Pulse Ox O2 Delivery O2 Flow Rate FiO2 07/01/20 10:30 98.4 67 18 153/98 (116) 99 Room Air 98.4 Labs: Labs: Laboratory Tests Test 06/30/20 11:25 06/30/20 18:17 06/30/20 20:06 06/30/20 22:09 White Blood Count 7.8 x10^3/uL (4.0-11.0) Red Blood Count 3.53 x10^6/uL (3.50-5.40) Hemoglobin 10.5 g/dL (12.0-15.5) Hematocrit 31.2 % (36.0-47.0) Mean Corpuscular Volume 88 fL (79-100) Mean Corpuscular Hemoglobin 30 pg (25-35) Mean Corpuscular Hemoglobin Concent 34 g/dL (31-37) Red Cell Distribution Width 15.0 % (11.5-14.5) Platelet Count 301 x10^3/uL (140-400) Sodium Level 136 mmol/L (136-145) Potassium Level 3.5 mmol/L (3.5-5.1) Chloride Level 102 mmol/L (98-107) Carbon Dioxide Level 27 mmol/L (21-32) Anion Gap 7 (6-14) Blood Urea Nitrogen 10 mg/dL (7-20) Creatinine 0.7 mg/dL (0.6-1.0) Estimated GFR (Cockcroft-Gault) 98.9 BUN/Creatinine Ratio 14 (6-20) Glucose Level 144 mg/dL (70-99) Calcium Level 7.7 mg/dL (8.5-10.1) Total Bilirubin 0.3 mg/dL (0.2-1.0) Aspartate Amino Transf (AST/SGOT) 38 U/L (15-37) Alanine Aminotransferase (ALT/SGPT) 66 U/L (14-59) Alkaline Phosphatase 106 U/L (46-116) Total Protein 5.8 g/dL (6.4-8.2) Albumin 2.7 g/dL (3.4-5.0) Albumin/Globulin Ratio 0.9 (1.0-1.7) Glucose (Fingerstick) 139 mg/dL (70-99) 111 mg/dL (70-99) 71 mg/dL (70-99) Test 06/30/20 23:34 07/01/20 00:12 07/01/20 03:34 07/01/20 04:21 Glucose (Fingerstick) 44 mg/dL (70-99) 65 mg/dL (70-99) 57 mg/dL (70-99) 92 mg/dL (70-99) Test 07/01/20 06:25 07/01/20 07:09 07/01/20 08:00 07/01/20 09:22 White Blood Count 4.5 x10^3/uL (4.0-11.0) Red Blood Count 3.30 x10^6/uL (3.50-5.40) Hemoglobin 9.8 g/dL (12.0-15.5) Hematocrit 28.7 % (36.0-47.0) Mean Corpuscular Volume 87 fL (79-100) Mean Corpuscular Hemoglobin 30 pg (25-35) Mean Corpuscular Hemoglobin Concent 34 g/dL (31-37) Red Cell Distribution Width 14.9 % (11.5-14.5) Platelet Count 268 x10^3/uL (140-400) Neutrophils (%) (Auto) 47 % (31-73) Lymphocytes (%) (Auto) 41 % (24-48) Monocytes (%) (Auto) 10 % (0-9) Eosinophils (%) (Auto) 1 % (0-3) Basophils (%) (Auto) 1 % (0-3) Neutrophils # (Auto) 2.1 x10^3/uL (1.8-7.7) Lymphocytes # (Auto) 1.9 x10^3/uL (1.0-4.8) Monocytes # (Auto) 0.4 x10^3/uL (0.0-1.1) Eosinophils # (Auto) 0.1 x10^3/uL (0.0-0.7) Basophils # (Auto) 0.0 x10^3/uL (0.0-0.2) Sodium Level 138 mmol/L (136-145) Potassium Level 2.8 mmol/L (3.5-5.1) Chloride Level 102 mmol/L (98-107) Carbon Dioxide Level 31 mmol/L (21-32) Anion Gap 5 (6-14) Blood Urea Nitrogen 5 mg/dL (7-20) Creatinine 0.5 mg/dL (0.6-1.0) Estimated GFR (Cockcroft-Gault) 145.9 BUN/Creatinine Ratio 10 (6-20) Glucose Level 61 mg/dL (70-99) Calcium Level 7.9 mg/dL (8.5-10.1) Total Bilirubin 0.4 mg/dL (0.2-1.0) Aspartate Amino Transf (AST/SGOT) 32 U/L (15-37) Alanine Aminotransferase (ALT/SGPT) 58 U/L (14-59) Alkaline Phosphatase 84 U/L (46-116) Total Protein 5.4 g/dL (6.4-8.2) Albumin 2.6 g/dL (3.4-5.0) Albumin/Globulin Ratio 0.9 (1.0-1.7) Lipase 28 U/L (73-393) Glucose (Fingerstick) 65 mg/dL (70-99) 61 mg/dL (70-99) 138 mg/dL (70-99) Test 07/01/20 10:49 Glucose (Fingerstick) 129 mg/dL (70-99) Allergies: Coded Allergies: acetaminophen (Verified Allergy, Intermediate, 06/29/20) TOLERATES OXYCODONE/APAP adhesive tape (Verified Allergy, Intermediate, 08/14/16) Medications: Current Medications Medications (Trade) Dose Ordered Sig/Armand Route PRN Reason Start Time Stop Time Status Last Admin Dose Admin Fentanyl Citrate (Fentanyl 2ml Vial) 50 mcg PRN Q4HRS PRN IVP PAIN 06/30/20 12:00 06/30/20 23:39 DC 06/30/20 20:28 Iohexol (Omnipaque 300 Mg/ml) 75 ml 1X ONCE IV 06/30/20 17:30 06/30/20 17:31 DC 06/30/20 17:49 Iohexol (Omnipaque 240 Mg/ml) 50 ml 1X ONCE PO 06/30/20 17:30 06/30/20 17:31 DC 06/30/20 17:49 Dextrose 1,000 ml @ 100 mls/hr Q10H IV 06/30/20 20:00 07/01/20 04:16 Fentanyl Citrate (Fentanyl 2ml Vial) 50 mcg PRN Q3HRS PRN IVP SEVERE PAIN 7-10 07/01/20 00:45 07/01/20 09:52 DC 07/01/20 08:19 Potassium Chloride 40 meq/ Dextrose 1,020 ml @ 100 mls/hr [id number] IV 07/01/20 09:00 07/01/20 10:10 Imaging: Imaging: CT A/P 06/30 IMPRESSION: 1. There is mild intrahepatic biliary ductal dilatation. Recommend correlation with LFTs. Gallbladder is also mildly distended. 2. Distended bladder, correlate for bladder outlet obstruction. 3. Nonobstructing 2 mm calculus the upper pole of the left kidney. RUQ US 07/01 IMPRESSION: 1. Prominent common duct for patient age at 6 mm. No cause for distal obstruction is seen. 2. The pancreatic head appears atrophic. PE: GEN: NAD - drinking some water, emesis basin w/ yellowish liquid (?chicken broth) HEENT: Atraumatic, PERRL LUNGS: CTAB HEART: RRR ABD: NABS, S/ND, non-specifically tender to light touch - ?MSK EXTREMITY: No edema SKIN: No rashes, no jaundice NEURO/PSYCH: A & O 3 A/P: A/P: DKA, UTI, h/o gastroparesis N/v, abdominal pain Chronic anemia (stable), hypokalemia, mildly elevated AST and ALT (resolved) Prominent CBD (6mm) - was 7mm on US in 2018, LFTs normal as above CRC screen - average risk H/o substance abuse Recent ovarian cystectomy, some narcotic use at home -- Apparently was doing well GI-devries for awhile, off meds. Unclear what set off this episode - ?recent surgery ?UTI Abd pain likely MSK from retching. Would avoid narcotics if possible. Schedule Reglan QIDACHS - IV for now. PPI started today - would change from PO to IV for now, consider BID dosing. Keep to clear liquids for now. She wants something more for nausea - try Zofran PRN. HARSHAD CORRIGAN Jul 01, 2020 11:34
[2020-07-01] MEDS ORDERED: ONDANSETRON PF 4 MG/2 ML VIAL. IVP PRN (11:45)
[2020-07-01] MEDS: METOCLOPRAMIDE HCL 10 MG/2 ML VIAL. IVP SCH ×2 (12:41→17:34)
--- NOTE | 2020-07-01 14:00 | NUR ---
PT REQUESTING PAIN MEDS. CALLED DR. GUSMAN HE STATED HE DID NOT WANT TO ORDER NARCOTICS. PT CAN HAVE TORADOL Q6H. UPDATED PT.
--- NOTE | 2020-07-01 14:22 | PDOC2 ---
CONSULT Date of Consult Date of Consult DATE: 07/01/20 TIME: 14:17 History of Present Illness Reason for Visit: The patient is a 29 year old female who reported to the ER at [facility] with abdominal pain, nausea and vomiting. She has a history of diabetes with gastroparesis. While in the her she had a serum glucose over 500 with multiple other metabolic abnormalities. She states her pain is located in both upper quadrants with some radiation to the front. She has been having the pain for the last 2 weeks. Past Medical History Past Medical History diabetes mellitus, gastroparesis, polysubstance abuse Past Surgical History Past Surgical History portacath placement/removal, ear surgeries, recent surgery for ovarian cyst Past Surgical History: Other Social History Quit ALCOHOL: none Drugs: Other (meth in past) Current Medications Current Medications Current Medications Sodium Chloride 1,000 ml @ 1,000 mls/hr Q1H IV Last administered on 06/28/20at 21:52; Start 06/28/20 at 20:30; Stop 06/28/20 at 20:31; Status DC Insulin Human Regular 100 unit/ Sodium Chloride 101 ml @ 0 mls/hr CONT PRN PRN IV PER PROTOCOL Last administered on 06/29/20at 02:15; Start 06/28/20 at 20:30 Potassium Chloride/Water 100 ml @ 100 mls/hr PRN Q1HR PRN IV SEE COMMENTS; Start 06/28/20 at 20:15 Potassium Chloride/Water 100 ml @ 100 mls/hr PRN Q1HR PRN IV SEE COMMENTS; S tart 06/28/20 at 20:15 Potassium Chloride/Water 100 ml @ 100 mls/hr PRN Q1HR PRN IV SEE COMMENTS; Start 06/28/20 at 20:15 Fentanyl Citrate (Fentanyl 2ml Vial) 50 mcg PRN Q3HRS PRN IVP PAIN Last administered on 06/30/20at 09:13; Start 06/28/20 at 20:30; Stop 06/30/20 at 09:33; Status DC Ondansetron HCl (Zofran) 4 mg Q4HRS PRN IVP NAUSEA/VOMITING Last administered on 06/30/20at 11:32; Start 06/28/20 at 20:30; Stop 06/30/20 at 12:01; Status DC Insulin Human Lispro (HumaLOG) 0-9 UNITS TIDWMEALS SQ Last administered on 06/29/20at 17:51; Start 06/29/20 at 08:00 Dextrose (Dextrose 50%-Water Syringe) 12.5 gm PRN Q15MIN PRN IV SEE COMMENTS Last administered on 07/01/20at 08:19; Start 06/29/20 at 07:45 Oxycodone/ Acetaminophen (Percocet 5/325) 1 tab PRN Q4HRS PRN PO PAIN Last administered on 07/01/20at 10:14; Start 06/29/20 at 08:00 Ceftriaxone Sodium (Rocephin) 1 gm Q24H IVP Last administered on 07/01/20at 10:10; Start 06/29/20 at 09:00 Insulin Glargine (Lantus Syringe) 20 unit BID SQ Last administered on 06/30/20at 21:12; Start 06/29/20 at 10:00 Metoclopramide HCl (Reglan Vial) 10 mg TIDACHC PRN IVP NAUSEA/VOMITING Last administered on 07/01/20at 08:31; Start 06/30/20 at 09:45; Stop 07/01/20 at 11:36; Status DC Fentanyl Citrate (Fentanyl 2ml Vial) 50 mcg PRN Q4HRS PRN IVP PAIN Last administered on 06/30/20at 20:28; Start 06/30/20 at 12:00; Stop 06/30/20 at 23:39; Status DC Lactobacillus Rhamnosus (Culturelle) 1 cap BID PO ; Start 06/30/20 at 21:00 Iohexol (Omnipaque 300 Mg/ml) 75 ml 1X ONCE IV Last administered on 06/30/20at 17:49; Start 06/30/20 at 17:30; Stop 06/30/20 at 17:31; Status DC Iohexol (Omnipaque 240 Mg/ml) 50 ml 1X ONCE PO Last administered on 06/30/20at 17:49; Start 06/30/20 at 17:30; Stop 06/30/20 at 17:31; Status DC Info (CONTRAST GIVEN -- Rx MONITORING) 1 each PRN DAILY PRN MC SEE COMMENTS; Start 06/30/20 at 17:30; Stop 07/02/20 at 17:29 Dextrose 1,000 ml @ 100 mls/hr Q10H IV Last administered on 07/01/20at 04:16; Start 06/30/20 at 20:00 Fentanyl Citrate (Fentanyl 2ml Vial) 50 mcg PRN Q3HRS PRN IVP SEVERE PAIN 7-10 Last administered on 07/01/20at 08:19; Start 07/01/20 at 00:45; Stop 07/01/20 at 09:52; Status DC Potassium Chloride/Dextrose 1,000 ml @ 100 mls/hr Q10H IV ; Start 07/01/20 at 08:00; Status Cancel Potassium Chloride 40 meq/ Dextrose 1,020 ml @ 100 mls/hr [id number] IV Last administered on 07/01/20at 10:10; Start 07/01/20 at 09:00 Ketorolac Tromethamine (Toradol 30mg Vial) 30 mg PRN Q6HRS PRN IVP INFLAMMATION Last administered on 07/01/20at 12:42; Start 07/01/20 at 10:00; Stop 07/06/20 at 09:59 Pantoprazole Sodium (Protonix) 40 mg DAILYAC PO ; Start 07/01/20 at 11:30; Stop 07/01/20 at 11:36; Status DC Metoclopramide HCl (Reglan Vial) 10 mg QIDACHS IVP Last administered on 07/01/20at 12:41; Start 07/01/20 at 11:30 Pantoprazole Sodium (PROTONIX VIAL for IV PUSH) 40 mg DAILYAC IVP Last administered on 07/01/20at 12:40; Start 07/01/20 at 11:30 Ondansetron HCl (Zofran) 4 mg PRN Q8HRS PRN IVP NAUSEA/VOMITING; Start 07/01/20 at 11:45 Active Scripts Active Zofran Odt (Ondansetron) 4 Mg Tab.rapdis 1 Tab SL Q8HRS 7 Days Novolog Flexpen (Insulin Aspart) 100 Unit/1 Ml Insuln.pen 0 Units SQ TIDWMEALS 60 Days Reported Metoclopramide Hcl 5 Mg/5 Ml Solution 5 Mg PO QIDACHS Pepcid (Famotidine) 20 Mg Tablet 20 Mg PO BID Levemir (Insulin Detemir) 100 Unit/1 Ml Vial 10 Unit SQ HS Levemir (Insulin Detemir) 100 Unit/1 Ml Vial 20 Unit SQ [id number] Reglan (Metoclopramide Hcl) 10 Mg Tablet 10 Mg PO QIDACHS Protonix (Pantoprazole Sodium) 40 Mg Tablet.dr 40 Mg PO DAILY PRN Allergies Allergies: Coded Allergies: acetaminophen (Verified Allergy, Intermediate, 06/29/20) TOLERATES OXYCODONE/APAP adhesive tape (Verified Allergy, Intermediate, 08/14/16) ROS PSYCHOLOGICAL ROS: YES: Anxiety Eyes: No Blurry vision, No Decreased vision, No Double vision, No Dry eyes, No Excessive tearing, No Eye Pain, No Itchy Eyes, No Loss of vision, No Photophobia, No Scotomata, No Uses contacts, No Uses glasses, No Other HEENT: No: Heacaches, Visual Changes, Hearing change, Nasal congestion, Nasal discharge, Oral lesions, Sinus pain, Sore Throat, Epistaxis, Sneezing, Snoring, Tinnitus, Vertigo, Vocal changes, Other ALLERGY AND IMMUNOLOGY: No: Hives, Insect Bite Sensitivity, Itchy/Watery Eyes, Nasal Congestion, Post Nasal Drip, Seasonal Allergies, Other Hematological and Lymphatic: No: Bleeding Problems, Blood Clots, Blood Transfusions, Brusing, Night Sweats, Pallor, Swollen Lymph Nodes, Other ENDOCRINE: No: Breast Changes, Galactorrhea, Hair Pattern Changes, Hot Flashes, Malaise/lethargy, Mood Swings, Palpitations, Polydipsia/polyuria, Skin Changes, Temperature Intolerance, Unexpected Weight Changes, Other Cardiovascular: No Chest Pain, No Palpitations, No Orthopnea, No Paroxysmal Noc. Dyspnea, No Edema, No Lt Headedness, No Other Gastrointestinal: Yes Nausea, Yes Vomiting, Yes Abdominal Pain Genitourinary: No Dysuria, No Frequency, No Incontinence, No Hematuria, No Retention, No Discharge, No Urgency, No Pain, No Flank Pain, No Other, No , No , No , No , No , No , No Musculoskeletal: No Gait Disturbance, No Joint Pain, No Joint Stiffness, No Joint Swelling, No Muscle Pain, No Muscular Weakness, No Pain In:, No Swelling In:, No Other Neurological: No Behavorial Changes, No Bowel/Bladder ControlChng, No Confusion, No Dizziness, No Gait Disturbance, No Headaches, No Impaired Coord/balance, No Memory Loss, No Numbness/Tingling, No Seizures, No Speech Problems, No Tremors, No Visual Changes, No Weakness, No Other Skin: No Dry Skin, No Eczema, No Hair Changes, No Lumps, No Mole Changes, No Mottling, No Nail Changes, No Pruritus, No Rash, No Skin Lesion Changes, No Other, No Acne Physical Exam General: Alert, Oriented X3 HEENT: Atraumatic Lungs: Clear to auscultation Heart: Regular rate Abdomen: Soft (tender bilateral upper abdomen) Extremities: No clubbing, No cyanosis Skin: No rashes Neuro: Normal speech Vitals VITALS Vital Signs Date Time Temp Pulse Resp B/P (MAP) Pulse Ox O2 Delivery O2 Flow Rate FiO2 07/01/20 11:14 Room Air 07/01/20 10:30 98.4 67 18 153/98 (116) 99 98.4 Labs Labs Laboratory Tests Test 06/29/20 16:30 06/29/20 17:34 06/29/20 20:58 06/30/20 07:57 Sodium Level 132 mmol/L (136-145) Potassium Level 4.2 mmol/L (3.5-5.1) Chloride Level 99 mmol/L (98-107) Carbon Dioxide Level 19 mmol/L (21-32) Anion Gap 14 (6-14) Blood Urea Nitrogen 27 mg/dL (7-20) Creatinine 0.9 mg/dL (0.6-1.0) Estimated GFR (Cockcroft-Gault) 74.0 Glucose Level 192 mg/dL (70-99) Calcium Level 7.8 mg/dL (8.5-10.1) Glucose (Fingerstick) 232 mg/dL (70-99) 142 mg/dL (70-99) 38 mg/dL (70-99) Test 06/30/20 09:00 06/30/20 11:25 06/30/20 11:53 06/30/20 17:03 Glucose (Fingerstick) 274 mg/dL (70-99) 135 mg/dL (70-99) 35 mg/dL (70-99) White Blood Count 7.8 x10^3/uL (4.0-11.0) Red Blood Count 3.53 x10^6/uL (3.50-5.40) Hemoglobin 10.5 g/dL (12.0-15.5) Hematocrit 31.2 % (36.0-47.0) Mean Corpuscular Volume 88 fL (79-100) Mean Corpuscular Hemoglobin 30 pg (25-35) Mean Corpuscular Hemoglobin Concent 34 g/dL (31-37) Red Cell Distribution Width 15.0 % (11.5-14.5) Platelet Count 301 x10^3/uL (140-400) Sodium Level 136 mmol/L (136-145) Potassium Level 3.5 mmol/L (3.5-5.1) Chloride Level 102 mmol/L (98-107) Carbon Dioxide Level 27 mmol/L (21-32) Anion Gap 7 (6-14) Blood Urea Nitrogen 10 mg/dL (7-20) Creatinine 0.7 mg/dL (0.6-1.0) Estimated GFR (Cockcroft-Gault) 98.9 BUN/Creatinine Ratio 14 (6-20) Glucose Level 144 mg/dL (70-99) Calcium Level 7.7 mg/dL (8.5-10.1) Total Bilirubin 0.3 mg/dL (0.2-1.0) Aspartate Amino Transf (AST/SGOT) 38 U/L (15-37) Alanine Aminotransferase (ALT/SGPT) 66 U/L (14-59) Alkaline Phosphatase 106 U/L (46-116) Total Protein 5.8 g/dL (6.4-8.2) Albumin 2.7 g/dL (3.4-5.0) Albumin/Globulin Ratio 0.9 (1.0-1.7) Test 06/30/20 17:46 06/30/20 18:17 06/30/20 20:06 06/30/20 21:10 Glucose (Fingerstick) 162 mg/dL (70-99) 139 mg/dL (70-99) 111 mg/dL (70-99) 87 mg/dL (70-99) Test 06/30/20 22:09 06/30/20 23:34 07/01/20 00:12 07/01/20 00:56 Glucose (Fingerstick) 71 mg/dL (70-99) 44 mg/dL (70-99) 65 mg/dL (70-99) 90 mg/dL (70-99) Test 07/01/20 02:04 07/01/20 03:34 07/01/20 04:21 07/01/20 05:59 Glucose (Fingerstick) 69 mg/dL (70-99) 57 mg/dL (70-99) 92 mg/dL (70-99) 71 mg/dL (70-99) Test 07/01/20 06:25 07/01/20 07:09 07/01/20 08:00 07/01/20 09:22 White Blood Count 4.5 x10^3/uL (4.0-11.0) Red Blood Count 3.30 x10^6/uL (3.50-5.40) Hemoglobin 9.8 g/dL (12.0-15.5) Hematocrit 28.7 % (36.0-47.0) Mean Corpuscular Volume 87 fL (79-100) Mean Corpuscular Hemoglobin 30 pg (25-35) Mean Corpuscular Hemoglobin Concent 34 g/dL (31-37) Red Cell Distribution Width 14.9 % (11.5-14.5) Platelet Count 268 x10^3/uL (140-400) Neutrophils (%) (Auto) 47 % (31-73) Lymphocytes (%) (Auto) 41 % (24-48) Monocytes (%) (Auto) 10 % (0-9) Eosinophils (%) (Auto) 1 % (0-3) Basophils (%) (Auto) 1 % (0-3) Neutrophils # (Auto) 2.1 x10^3/uL (1.8-7.7) Lymphocytes # (Auto) 1.9 x10^3/uL (1.0-4.8) Monocytes # (Auto) 0.4 x10^3/uL (0.0-1.1) Eosinophils # (Auto) 0.1 x10^3/uL (0.0-0.7) Basophils # (Auto) 0.0 x10^3/uL (0.0-0.2) Sodium Level 138 mmol/L (136-145) Potassium Level 2.8 mmol/L (3.5-5.1) Chloride Level 102 mmol/L (98-107) Carbon Dioxide Level 31 mmol/L (21-32) Anion Gap 5 (6-14) Blood Urea Nitrogen 5 mg/dL (7-20) Creatinine 0.5 mg/dL (0.6-1.0) Estimated GFR (Cockcroft-Gault) 145.9 BUN/Creatinine Ratio 10 (6-20) Glucose Level 61 mg/dL (70-99) Calcium Level 7.9 mg/dL (8.5-10.1) Total Bilirubin 0.4 mg/dL (0.2-1.0) Aspartate Amino Transf (AST/SGOT) 32 U/L (15-37) Alanine Aminotransferase (ALT/SGPT) 58 U/L (14-59) Alkaline Phosphatase 84 U/L (46-116) Total Protein 5.4 g/dL (6.4-8.2) Albumin 2.6 g/dL (3.4-5.0) Albumin/Globulin Ratio 0.9 (1.0-1.7) Lipase 28 U/L (73-393) Glucose (Fingerstick) 65 mg/dL (70-99) 61 mg/dL (70-99) 138 mg/dL (70-99) Test 07/01/20 10:49 07/01/20 12:39 Glucose (Fingerstick) 129 mg/dL (70-99) 123 mg/dL (70-99) Laboratory Tests Test 06/30/20 17:03 06/30/20 17:46 06/30/20 18:17 06/30/20 20:06 Glucose (Fingerstick) 35 mg/dL (70-99) 162 mg/dL (70-99) 139 mg/dL (70-99) 111 mg/dL (70-99) Test 06/30/20 21:10 06/30/20 22:09 06/30/20 23:34 07/01/20 00:12 Glucose (Fingerstick) 87 mg/dL (70-99) 71 mg/dL (70-99) 44 mg/dL (70-99) 65 mg/dL (70-99) Test 07/01/20 00:56 07/01/20 02:04 07/01/20 03:34 07/01/20 04:21 Glucose (Fingerstick) 90 mg/dL (70-99) 69 mg/dL (70-99) 57 mg/dL (70-99) 92 mg/dL (70-99) Test 07/01/20 05:59 07/01/20 06:25 07/01/20 07:09 07/01/20 08:00 Glucose (Fingerstick) 71 mg/dL (70-99) 65 mg/dL (70-99) 61 mg/dL (70-99) White Blood Count 4.5 x10^3/uL (4.0-11.0) Red Blood Count 3.30 x10^6/uL (3.50-5.40) Hemoglobin 9.8 g/dL (12.0-15.5) Hematocrit 28.7 % (36.0-47.0) Mean Corpuscular Volume 87 fL (79-100) Mean Corpuscular Hemoglobin 30 pg (25-35) Mean Corpuscular Hemoglobin Concent 34 g/dL (31-37) Red Cell Distribution Width 14.9 % (11.5-14.5) Platelet Count 268 x10^3/uL (140-400) Neutrophils (%) (Auto) 47 % (31-73) Lymphocytes (%) (Auto) 41 % (24-48) Monocytes (%) (Auto) 10 % (0-9) Eosinophils (%) (Auto) 1 % (0-3) Basophils (%) (Auto) 1 % (0-3) Neutrophils # (Auto) 2.1 x10^3/uL (1.8-7.7) Lymphocytes # (Auto) 1.9 x10^3/uL (1.0-4.8) Monocytes # (Auto) 0.4 x10^3/uL (0.0-1.1) Eosinophils # (Auto) 0.1 x10^3/uL (0.0-0.7) Basophils # (Auto) 0.0 x10^3/uL (0.0-0.2) Sodium Level 138 mmol/L (136-145) Potassium Level 2.8 mmol/L (3.5-5.1) Chloride Level 102 mmol/L (98-107) Carbon Dioxide Level 31 mmol/L (21-32) Anion Gap 5 (6-14) Blood Urea Nitrogen 5 mg/dL (7-20) Creatinine 0.5 mg/dL (0.6-1.0) Estimated GFR (Cockcroft-Gault) 145.9 BUN/Creatinine Ratio 10 (6-20) Glucose Level 61 mg/dL (70-99) Calcium Level 7.9 mg/dL (8.5-10.1) Total Bilirubin 0.4 mg/dL (0.2-1.0) Aspartate Amino Transf (AST/SGOT) 32 U/L (15-37) Alanine Aminotransferase (ALT/SGPT) 58 U/L (14-59) Alkaline Phosphatase 84 U/L (46-116) Total Protein 5.4 g/dL (6.4-8.2) Albumin 2.6 g/dL (3.4-5.0) Albumin/Globulin Ratio 0.9 (1.0-1.7) Lipase 28 U/L (73-393) Test 07/01/20 09:22 07/01/20 10:49 07/01/20 12:39 Glucose (Fingerstick) 138 mg/dL (70-99) 129 mg/dL (70-99) 123 mg/dL (70-99) Images Images Abdominal sonogram FINDINGS: Sonographic evaluation of the right upper quadrant was performed. The liver appears normal in parenchymal echotexture. There are no focal lesions. The gallbladder is unremarkable without evidence of stones, wall thickening or p ericholecystic fluid. There is no sonographic Grajeda sign. The common duct measures 6 mm. The visualized portions of the head of the pancreas appear atrophic. The right kidney measures 12.7 cm. Cortical thickness and echogenicity are preserved. There is no hydronephrosis. The visualized portions of the abdominal aorta and inferior vena cava are grossly patent and normal in caliber. IMPRESSION: 1. Prominent common duct for patient age at 6 mm. No cause for distal obstruction is seen. 2. The pancreatic head appears atrophic. Assessment/Plan Assessment/Plan 29 year old female, DKA, abdominal pain; GI consulted and workup in progress. No surgical recs at this time, but will follow. KHADIJAH LOPEZ MD Jul 01, 2020 14:22
[2020-07-01 15:00] VITALS: BP 150/98
[2020-07-01] MEDS ORDERED: KETOROLAC 15 MG/ML VIAL. IVP PRN (15:00)
[2020-07-01 17:09] LABS: CALCIUM 7.8 mg/dL (8.5-10.1); CREATININE 0.7 mg/dL (0.6-1.0); GFR 98.9; POTASSIUM 3.7 mmol/L (3.5-5.1)
--- NOTE | 2020-07-01 18:00 | NUR ---
Patients mom stating she her daughter has been on pain meds for the last month and we are going to cause her to withdrawl by stopping the meds abruptly. She requested I page Dr. Hernandez again requesting pain meds. Spoke to Dr. Hernandez he stated GI does not recommend narcotics with gastroparesis and that he does not want to order any additional medications. Updated pt and mother. Pt requesting to leave AMA. IV's removed. Paperwork signed. Pt ambulated to entrance with [employer] and security.
--- NOTE | 2020-07-05 10:46 | DS ---
DATE OF DISCHARGE: 07/01/2020 HOSPITAL COURSE: The patient is a 29-year-old female patient well known to me as she has brittle type 1 diabetes and has been admitted to [facility] numerous times with diabetic ketoacidosis. She actually presented to [facility] Emergency Room with abdominal pain. A CT scan of the abdomen there showed that she has multiloculated cystic lesion at the left adnexa measuring approximately 5.7 x 3.9 cm with adjacent stranding or edema. It was felt that this might be representing a cystic change in the left ovary. She has also nonobstructing left renal calculi. No evidence of obstructive uropathy, and therefore, the patient was transferred to [facility] to do an abdominal ultrasound and to rule out ovarian torsion and to consult the materials tech. In fact, she underwent pelvic ultrasound, both transabdominal and transvaginal sonographic evaluation of the pelvis and it did show that the patient has perfusion as noted to the ovaries bilaterally at the time of imaging, enlarged left ovary with a cystic lesion measuring up to 5.1 x 4.4 x 4.2 cm with appearance suggestive of endometrioma or hemorrhagic cyst. Findings are atypical for dermoid. She was seen in consultation by the materials tech and apparently underwent laparoscopic left ovarian cystectomy and resection of endometriosis. The patient was stabilized with insulin drip and D5W as she is extremely brittle diabetic. Postoperatively, the patient did very well. Her blood sugar was reasonably controlled, and therefore, a decision was made to discharge her home to continue on her own insulin regimen. PHYSICAL EXAMINATION: GENERAL: When I saw her on the day of discharge, the patient was somewhat pale, cachectic, but no jaundice, cyanosis or thyromegaly. No jugular venous distension. No limb edema. VITAL SIGNS: Her heart rate was 81, blood pressure was 138/82, temperature was 98.5, respiratory rate was 18, and oxygen saturation was 100%. HEAD, EYES, EARS, NOSE and THROAT: Showed normocephalic, atraumatic. NECK: Supple. HEART: Showed normal first and second heart sounds. No gallop, rub or murmur. CHEST: Clear to auscultation. No crepitation or rhonchi. ABDOMEN: Scaphoid, soft, nontender. Mild discomfort in the left lower quadrant. There is no guarding or rigidity. No organomegaly. All hernial orifice intact. Bowel sounds normal. NEUROLOGICAL: She is grossly intact. LABORATORY DATA: Her lab work on the day of discharge showed a serum sodium 136, potassium 3.3, chloride 102, bicarbonate 25, anion gap of 9, BUN 18, creatinine 0.7, estimated GFR was 98 mL per minute. Her glucose was 99. Calcium was 8.1. Total bilirubin, AST, ALT, alkaline phosphatase were normal. Total protein was 5.4. Albumin was 2.5. Her urine was negative and her coronavirus by PCR was negative. DISCHARGE MEDICATIONS: She was discharged home to continue on famotidine 20 mg twice a day. She is on Humalog insulin 3 times a day as per insulin sliding scale. She is also on Levemir insulin 20 units subcutaneously daily and 10 units at bedtime. She is also on metoclopramide 10 mg before meals and at bedtime, ondansetron for Zofran 4 mg every 4 hours as needed and Protonix 40 mg once a day. FINAL DISCHARGE DIAGNOSES: 1. Multiloculated ovarian cyst status post laparoscopic left ovarian cystectomy and resection of endometriosis. 2. Very brittle type 1 diabetes with recurrent episode of diabetic ketoacidosis. 3. Diabetic gastroparesis. 4. Acute kidney injury that has resolved. FAVIOLA GUSMAN MD DR: MICHELLE/david JOB#: [id number] / [id number]
== END 2020-07-01 18:15 | disposition left against medical advice (07) | DRG 638 ==
LOC: 1 WEST ICU 19:50 → 4 NORTH 06-29 17:10
PROVIDERS: ADMIT Internal Medicine; ATTEND Internal Medicine
DX: E10.10 Type 1 diabetes mellitus with ketoacidosis without coma (principal); E87.1 Hypo-osmolality and hyponatremia; N17.9 Acute kidney failure, unspecified; N39.0 Urinary tract infection, site not specified; N32.0 Bladder-neck obstruction; K83.8 Other specified diseases of biliary tract; E10.43 Type 1 diabetes mellitus with diabetic autonomic (poly)neuropathy; K31.84 Gastroparesis; E10.649 Type 1 diabetes mellitus with hypoglycemia without coma; E87.6 Hypokalemia; E87.5 Hyperkalemia; D64.9 Anemia, unspecified; B95.7 Other staphylococcus as the cause of diseases classified elsewhere; E86.0 Dehydration; Z88.6 Allergy status to analgesic agent; Z91.048 Other nonmedicinal substance allergy status; Z83.79 Family history of other diseases of the digestive system; Z84.89 Family history of other specified conditions; Z79.899 Other long term (current) drug therapy
CPT/HCPCS: 36415; 74177; 76705; 80048; 80053; 82947; 82962; 83036; 83690; 83735; 84100; 84132; 85007; 85025; 85027; C9113; J0696; J1815; J1885; J2405; J2765; J3010; J3480; J7030; J7060; Q9966; Q9967; G0378

== ENCOUNTER 2021-09-23 10:42 | Inpatient (IN) | payer MEDICAID ==
[~2021-09-23] VITALS: Ht 172.7 cm; Wt 63.5 kg
[2021-09-23] VITALS (15 sets, daily range): BP systolic 83–127; BP diastolic 49–81
--- NOTE | 2021-09-23 10:30 | NUR ---
Pt to ICU per EMS from [place]. Pt lethargic but does answer and follows commands. Placed on monitor. VSS. Insulin qtt infusing. Will follow DKA protocol.
[~2021-09-23 10:42] MED LIST changes: +CEFD300C PO; +INSU100I13 SQ; +POTA-121 PO; -POTA20TA4 PO
--- NOTE | 2021-09-23 10:59 | PDOC1 ---
History and Physical Date of Admission Date of Admission DATE: 09/23/21 TIME: 10:58 Identification/Chief Complaint Chief Complaint DKA, abdominal pain, vomiting Source Source: Chart review, Patient History of Present Illness History of Present Illness Ms Earl is a 30 year old female w/ PMHx substance use disorder, insulin dependent diabetes with gastroparesis who came to ED 09/23/21 in the morning c/o nausea, vomiting, abdomen, hyperglycemia, weakness. Seen previously for multiple admissions for gastroparesis and cyclic vomiting. No recent sick contacts or food poisoning. No recent travel outside the [place] area. She has difficulties with compliance with her diabetic regimen previously and takes Reglan for diabetic gastroparesis but says she does not think it works. Patient does continue to smoke tobacco and uses marijuana. Following with Dr. Juan outpatient Labs with WBC 18.5, Hb 14.5, platelets 382, VBG 7.1 09/26/1953 on room air, INR 0.9, PTT 24, urinalysis large blood many squamous epithelial cells negative urine , urine drug screen positive for amphetamines, NA 120, K7.1, chloride 81, HCO3 7, anion gap 32, BUN 50, CR 1.6, glucose 643, lactic acid 3.3, calcium 9.3, bilirubin 0.9, AST 21, ALT 28, alkaline phosphatase 133, CK 44, high-sensitivity troponin is 7, albumin is 3.8, lipase 33, rapid influenza negative, rapid COVID-19 negative. EKG sinus tachycardia rate of 125 bpm peak T waves no ST segment changes or T WI. Transferred to [facility] for further care for DKA due to lack of ICU availability Past Surgical History Past Surgical History ovarian cyst;eyex3;earx3;port;chest tubes; bx of rt ankle Past Surgical History: Other Social History ALCOHOL: none Drugs: Other Current Medications Current Medications Current Medications Sodium Chloride 1,000 ml @ 250 mls/hr Q4H IV ; Start 09/23/21 at 11:00; Status UNV Sodium Chloride 1,000 ml @ 250 mls/hr Q4H IV ; Start 09/23/21 at 11:00; Status UNV Dextrose/Sodium Chloride 1,000 ml @ 250 mls/hr Q4H IV ; Start 09/23/21 at 11:00 Insulin Human Regular 100 unit/ Sodium Chloride 101 ml @ 0 mls/hr CONT PRN PRN IV PER PROTOCOL; Start 09/23/21 at 11:00 Potassium Chloride/Water 100 ml @ 100 mls/hr PRN Q1HR PRN IV SEE COMMENTS; Start 09/23/21 at 11:00 Potassium Chloride/Water 100 ml @ 100 mls/hr PRN Q1HR PRN IV SEE COMMENTS; Start 09/23/21 at 11:00 Potassium Chloride/Water 100 ml @ 100 mls/hr PRN Q1HR PRN IV SEE COMMENTS; Start 09/23/21 at 11:00 Ondansetron HCl (Zofran) 4 mg PRN Q4HRS PRN IVP NAUSEA/VOMITING; Start 09/23/21 at 11:00; Status UNV Morphine Sulfate (Morphine Sulfate) 1 mg PRN Q1HR PRN IV PAIN; Start 09/23/21 at 11:00; Status UNV Bisacodyl (Dulcolax Supp) 10 mg PRN DAILY PRN TN CONSTIPATION; Start 09/23/21 at 11:00; Status UNV Heparin Sodium (Porcine) (Heparin Sodium) 5,000 unit Q12HR SQ ; Start 09/23/21 at 21:00; Status UNV Active Scripts Active Cefdinir 300 Mg Capsule 1 Cap PO BID 3 Days Lantus Solostar (Insulin Glargine,Hum.rec.anlog) 100 Unit/1 Ml Insuln.pen 20 Unit SQ BID 30 Days Zofran Odt (Ondansetron) 4 Mg Tab.rapdis 1 Tab SL Q8HRS 7 Days Novolog Flexpen (Insulin Aspart) 100 Unit/1 Ml Insuln.pen 0 Units SQ TIDWMEALS 60 Days Reported Metoclopramide Hcl 5 Mg/5 Ml Solution 5 Mg PO QIDACHS Protonix (Pantoprazole Sodium) 40 Mg Tablet.dr 40 Mg PO DAILY PRN Allergies Allergies: Coded Allergies: acetaminophen (Verified Allergy, Intermediate, 06/29/20) TOLERATES OXYCODONE/APAP adhesive tape (Verified Allergy, Intermediate, 08/14/16) ROS General: YES: Fatigue, Malaise, Appetite; No: Chills, Night Sweats, Other PSYCHOLOGICAL ROS: YES: Anxiety, Behavioral Disorder; No: Concentration difficultie, Decreased libido, Depression, Disorientation, Hallucinations, Hostility, Irritablity, Memory difficulties, Mood Swings, Obsessive thoughts, Physical abuse, Sexual abuse, Sleep disturbances, Suicidal ideation, Other Eyes: No Blurry vision, No Decreased vision, No Double vision, No Dry eyes, No Excessive tearing, No Eye Pain, No Itchy Eyes, No Loss of vision, No Photophobia, No Scotomata, No Uses contacts, No Uses glasses, No Other HEENT: No: Heacaches, Visual Changes, Hearing change, Nasal congestion, Nasal discharge, Oral lesions, Sinus pain, Sore Throat, Epistaxis, Sneezing, Snoring, Tinnitus, Vertigo, Vocal changes, Other ALLERGY AND IMMUNOLOGY: No: Hives, Insect Bite Sensitivity, Itchy/Watery Eyes, Nasal Congestion, Post Nasal Drip, Seasonal Allergies, Other Hematological and Lymphatic: No: Bleeding Problems, Blood Clots, Blood Transfusions, Brusing, Night Sweats, Pallor, Swollen Lymph Nodes, Other ENDOCRINE: No: Breast Changes, Galactorrhea, Hair Pattern Changes, Hot Flashes, Malaise/lethargy, Mood Swings, Palpitations, Polydipsia/polyuria, Skin Changes, Temperature Intolerance, Unexpected Weight Changes, Other Breast: No New/Changing Breast Lumps, No Nipple changes, No Nipple discharge, No Other Respiratory: No: Cough, Hemoptysis, Orthopnea, Pleuritic Pain, Shortness of breath, SOB with excertion, Sputum Changes, Stridor, Tachypnea, Wheezing, Other Cardiovascular: No Chest Pain, No Palpitations, No Orthopnea, No Paroxysmal Noc. Dyspnea, No Edema, No Lt Headedness, No Other Gastrointestinal: Yes Nausea, Yes Vomiting, Yes Abdominal Pain; No Diarrhea, No Constipation, No Melena, No Hematochezia, No Other Genitourinary: YES Flank Pain; No Dysuria, No Frequency, No Incontinence, No Hematuria, No Retention, No Discharge, No Urgency, No Pain, No Other, No , No , No , No , No , No , No Musculoskeletal: No Gait Disturbance, No Joint Pain, No Joint Stiffness, No Joint Swelling, No Muscle Pain, No Muscular Weakness, No Pain In:, No Swelling In:, No Other Neurological: No Behavorial Changes, No Bowel/Bladder ControlChng, No Confusio n, No Dizziness, No Gait Disturbance, No Headaches, No Impaired Coord/balance, No Memory Loss, No Numbness/Tingling, No Seizures, No Speech Problems, No Tremors, No Visual Changes, No Weakness, No Other Skin: No Dry Skin, No Eczema, No Hair Changes, No Lumps, No Mole Changes, No Mottling, No Nail Changes, No Pruritus, No Rash, No Skin Lesion Changes, No Other, No Acne Physical Exam General: Alert, Oriented X3, Cooperative, moderate distress HEENT: Atraumatic, PERRLA, EOMI, Mucous membr. moist/pink Lungs: Clear to auscultation, Normal air movement Heart: S1S2, RRR, no thrills, no rubs, no gallops, no murmurs Abdomen: Normal bowel sounds, Soft, Other (Bilateral lower quadrant pain, flank pain) Rectal Exam: not examined Extremities: No clubbing, No cyanosis, No edema, Normal pulses, No tenderness/swelling Skin: No rashes, No breakdown, No significant lesion Neuro: Normal gait, Normal speech, Strength at 5/5 X4 ext, Normal tone, Sensation intact, Cranial nerves 3-12 NL, Reflexes 2+ Psych/Mental Status: Mental status NL, Mood NL VTE Prophylaxis Ordered VTE Prophylaxis Devices: No VTE Pharmacological Prophylaxi: Yes Assessment/Plan Assessment/Plan Diabetic ketoacidosis - gap of 32. Every 4 hours labs insulin gtt. NPO. We will reinitiate home insulin when gap closes. Hyperkalemia - with EKG changes, given IV insulin and bicarb calcium monitor on telemetry. Intractable abdominal pain - likely DKA related, had recent abdominal imaging, does have some gallstone historically DM1 - insulin compliance is a difficulty Gastoparesis - on reglan outpatient, she states she takes it but it doesn't work IFEOMA - vasomotor nephropathy from DKA. Will monitor for improvement. Abdominal imaging if no improvement. Has had multiple CT abd/pelvis and US over the past 6 months. Leukocytosis - WBC 18.5 - likely reactive due to DKA, will monitor, no clear infectious source Polysubtance abuse - urine drug screen positive for amphetamines. Counseled on cessation Smoker - counseled on cessation Hyponatremia - NA 120 - will monitor as glucose improves, corrects FEN - NPO, PPX - heparin FULL CODE Dispo - ICU for DKA CC time 39 minutes Justifications for Admission Abdominal Pain Indications Is patient in severe pain?: Yes Justification for admission: Patient has severe pain that requires (parenteral analgesic-please state analgesics and route) at least every 4 hours necessitating inpatient level of care. Is NPO status required?: Yes Justification for admission: Patient may require to be NPO for greater 24hours making it medically necessary to manage patient as inpatient. Other Justification JOSUE CHAN MD September 23, 2021 10:59
[2021-09-23] MEDS ORDERED: POTASSIUM CHLORIDE 10MEQ 100 ML IV PRN ×3 (11:00)
[2021-09-23] MEDS: IV NORMAL SALINE 1000ML BAG 1,000 ML IV SCH ×4 (11:00→23:00)
[2021-09-23] MEDS ORDERED: BISACODYL 10 MG SUPP.RECT. PR PRN (11:00)
[2021-09-23] MEDS: IV 1/2 NORMAL SALINE 1,000 ML IV SCH ×4 (11:00→23:00)
[2021-09-23] MEDS ORDERED: MORPHINE SULFATE 2 MG/ML INJ. IV PRN (11:00)
[2021-09-23] MEDS ORDERED: ONDANSETRON PF 4 MG/2 ML VIAL. IVP PRN (11:00)
[2021-09-23] MEDS ORDERED: INSULIN REGULAR VIAL 100 UNIT in IV NORMAL SALINE 100ML 100 ML IV PRN (11:00)
[2021-09-23] MEDS ORDERED: IV DEXTROSE 5 %-0.45 % NACL 1,000 ML IV SCH (11:00)
[2021-09-23 12:07] LABS: CALCIUM 7.8 mg/dL (8.5-10.1); CREATININE 1.2 mg/dL (0.6-1.0); GFR 52.7
[2021-09-23 12:11] LABS: PHOSPHORUS 3.9 mg/dL (2.6-4.7)
[2021-09-23] MEDS: IV DEXTROSE 5% - 0.9 % NACL 1,000 ML IV SCH ×3 (13:30→21:30)
[2021-09-23] MEDS ORDERED: METOCLOPRAMIDE HCL 10 MG/2 ML VIAL. IVP PRN (16:15)
[2021-09-23] MEDS ORDERED: PANTOPRAZOLE IV PUSH 40 MG VIAL. IVP ONE (16:15)
[2021-09-23 16:32] LABS: CALCIUM 7.4 mg/dL (8.5-10.1); CREATININE 1.1 mg/dL (0.6-1.0); GFR 58.3; MAGNESIUM 1.8 mg/dL (1.8-2.4); PHOSPHORUS 2.9 mg/dL (2.6-4.7); POTASSIUM 4.3 mmol/L (3.5-5.1)
[2021-09-23] MEDS ORDERED: DEXTROSE 50% 25 GM / 50ML DISP.SYRIN. IV PRN (17:15)
[2021-09-23] MEDS: BENZOCAINE/MENTHOL LOZENGE. PO PRN ×2 (18:11→20:33)
[2021-09-23] MEDS: HYDROcodone/APAP 5/325MG 1 TAB TABLET PO PRN (20:34)
[2021-09-23] MEDS: INSULIN GLARGINE SYRINGE. SQ SCH (21:00)
[2021-09-23] MEDS: HEPARIN for SUB-Q USE 5,000 UNIT/ML VIAL. SQ SCH (21:00)
[2021-09-23] MEDS: INSULIN LISPRO 300 UNITS/3 ML VIAL. SQ SCH (21:00)
[2021-09-24] VITALS (19 sets, daily range): BP systolic 92–121; BP diastolic 55–87
[2021-09-24] MEDS: IV DEXTROSE 5% - 0.9 % NACL 1,000 ML IV SCH ×2 (01:30→05:30)
[2021-09-24] MEDS: IV 1/2 NORMAL SALINE 1,000 ML IV SCH ×2 (03:00→07:00)
[2021-09-24] MEDS: IV NORMAL SALINE 1000ML BAG 1,000 ML IV SCH ×2 (03:00→07:00)
[2021-09-24 05:54] LABS: BASO # 0.1 x10^3/uL (0.0-0.2); BASO % 1 % (0-3); EOS # 0.2 x10^3/uL (0.0-0.7); EOS % 2 % (0-3); HEMATOCRIT 30.2 % (36.0-47.0); HEMOGLOBIN 10.2 g/dL (12.0-15.5); LYMPH # 2.4 x10^3/uL (1.0-4.8); LYMPH % 22 % (24-48); MEAN CORPUSCULAR HEMOGLOBIN 30 pg (25-35); MEAN CORPUSCULAR HGB CONC 34 g/dL (31-37); MEAN CORPUSCULAR VOLUME 88 fL (79-100); MONO # 0.8 x10^3/uL (0.0-1.1); MONO % 7 % (0-9); NEUT # 7.2 x10^3/uL (1.8-7.7); NEUT % 68 % (31-73); PLATELET COUNT 291 x10^3/uL (140-400); RED BLOOD COUNT 3.45 x10^6/uL (3.50-5.40); RED CELL DISTRIBUTION WIDTH 13.5 % (11.5-14.5); WHITE BLOOD COUNT 10.7 x10^3/uL (4.0-11.0)
[2021-09-24 06:07] LABS: CALCIUM 7.5 mg/dL (8.5-10.1); CREATININE 0.9 mg/dL (0.6-1.0); GFR 73.5; POTASSIUM 4.5 mmol/L (3.5-5.1)
[2021-09-24] MEDS: INSULIN LISPRO 300 UNITS/3 ML VIAL. SQ SCH ×3 (06:39→16:37)
[2021-09-24] MEDS: INSULIN GLARGINE SYRINGE. SQ SCH (06:40)
[2021-09-24] MEDS ORDERED: INSULIN LISPRO 300 UNITS/3 ML VIAL. SQ SCH (08:00)
[2021-09-24] MEDS: HEPARIN for SUB-Q USE 5,000 UNIT/ML VIAL. SQ SCH (09:01)
[2021-09-24] MEDS: HYDROcodone/APAP 5/325MG 1 TAB TABLET PO PRN (09:07)
--- NOTE | 2021-09-24 13:17 | PDOC ---
[employer] PROGRESS NOTE Date of Service DOS: DATE: 09/24/21 TIME: 13:14 Chief Complaint Chief Complaint Assessment/Plan Diabetic ketoacidosis -AG now 9. Resume home insulin dose with R ISS and Accu- Cheks. Hyperkalemia -resolved Intractable abdominal pain -improved. DM1 - insulin compliance is a difficulty. Resume home insulin regimen. Gastoparesis - on reglan outpatient, she states she takes it but it doesn't work IFEOMA - vasomotor nephropathy from DKA. Improved Leukocytosis - WBC 18.5 - likely reactive due to DKA, will monitor, no clear infectious source Polysubtance abuse - urine drug screen positive for amphetamines. Counseled on cessation Smoker - counseled on cessation Hyponatremia - NA 120 -improved FEN - NPO, PPX - heparin FULL CODE Dispo - ICU for DKA History of Present Illness History of Present Illness 30 year old female w/ PMHx substance use disorder, insulin dependent diabetes with gastroparesis who came to ED 09/23/21 in the morning c/o nausea, vomiting, abdomen, hyperglycemia, weakness. Seen previously for multiple admissions for gastroparesis and cyclic vomiting. No recent sick contacts or food poisoning. No recent travel outside the [place] area. She has difficulties with compliance with her diabetic regimen previously and takes Reglan for diabetic gastroparesis but says she does not think it works. Patient does continue to smoke tobacco and uses marijuana. Following with Dr. Juan outpatient Labs with WBC 18.5, Hb 14.5, platelets 382, VBG 7.1 09/26/1953 on room air, INR 0.9, PTT 24, urinalysis large blood many squamous epithelial cells negative urine , urine drug screen positive for amphetamines, NA 120, K7.1, ch loride 81, HCO3 7, anion gap 32, BUN 50, CR 1.6, glucose 643, lactic acid 3.3, calcium 9.3, bilirubin 0.9, AST 21, ALT 28, alkaline phosphatase 133, CK 44, high-sensitivity troponin is 7, albumin is 3.8, lipase 33, rapid influenza negative, rapid COVID-19 negative. EKG sinus tachycardia rate of 125 bpm peak T waves no ST segment changes or T WI. [facility] care for DKA due to lack of ICU availability 09/24/2021 No acute events overnight. Patient seen examined bedside. Anion gap closed overnight. Bicarb greater than 18 not requiring any more bicarb infusions. Patient resting comfortably in bed. No acute pain issues. Okay to transfer to the floor. Patient's chart, labs, images were reviewed and discussed with RN Vitals/I&O Vitals/I&O: Vital Signs Date Time Temp Pulse Resp B/P (MAP) Pulse Ox O2 Delivery O2 Flow Rate FiO2 09/24/21 13:00 92 16 101/66 (78) 100 09/24/21 12:00 97.8 97.8 09/24/21 12:00 Room Air I & O 09/23/21 09/23/21 09/24/21 15:00 23:00 07:00 Intake Total 320 ml 911 ml 3440 ml Output Total 0 ml Balance 320 ml 911 ml 3440 ml Physical Exam General: Alert, Oriented X3, Cooperative, moderate distress Lungs: Clear, Other Abdomen: Normal bowel sounds, Soft, Other (Bilateral lower quadrant pain, flank pain) Extremities: No clubbing, No cyanosis, No edema, Normal pulses, No tenderness/swelling Skin: No rashes, No breakdown, No significant lesion Labs Labs: Laboratory Tests Test 09/23/21 14:13 09/23/21 15:02 09/23/21 16:03 09/23/21 16:04 Glucose (Fingerstick) 226 mg/dL (70-99) 192 mg/dL (70-99) 273 mg/dL (70-99) Sodium Level 132 mmol/L (136-145) Potassium Level 4.3 mmol/L (3.5-5.1) Chloride Level 105 mmol/L (98-107) Carbon Dioxide Level 17 mmol/L (21-32) Anion Gap 10 (6-14) Blood Urea Nitrogen 30 mg/dL (7-20) Creatinine 1.1 mg/dL (0.6-1.0) Estimated GFR (Cockcroft-Gault) 58.3 Glucose Level 267 mg/dL (70-99) Calcium Level 7.4 mg/dL (8.5-10.1) Phosphorus Level 2.9 mg/dL (2.6-4.7) Magnesium Level 1.8 mg/dL (1.8-2.4) Test 09/23/21 16:59 09/23/21 19:55 09/23/21 23:54 09/24/21 05:30 Glucose (Fingerstick) 288 mg/dL (70-99) 271 mg/dL (70-99) 318 mg/dL (70-99) White Blood Count 10.7 x10^3/uL (4.0-11.0) Red Blood Count 3.45 x10^6/uL (3.50-5.40) Hemoglobin 10.2 g/dL (12.0-15.5) Hematocrit 30.2 % (36.0-47.0) Mean Corpuscular Volume 88 fL (79-100) Mean Corpuscular Hemoglobin 30 pg (25-35) Mean Corpuscular Hemoglobin Concent 34 g/dL (31-37) Red Cell Distribution Width 13.5 % (11.5-14.5) Platelet Count 291 x10^3/uL (140-400) Neutrophils (%) (Auto) 68 % (31-73) Lymphocytes (%) (Auto) 22 % (24-48) Monocytes (%) (Auto) 7 % (0-9) Eosinophils (%) (Auto) 2 % (0-3) Basophils (%) (Auto) 1 % (0-3) Neutrophils # (Auto) 7.2 x10^3/uL (1.8-7.7) Lymphocytes # (Auto) 2.4 x10^3/uL (1.0-4.8) Monocytes # (Auto) 0.8 x10^3/uL (0.0-1.1) Eosinophils # (Auto) 0.2 x10^3/uL (0.0-0.7) Basophils # (Auto) 0.1 x10^3/uL (0.0-0.2) Sodium Level 134 mmol/L (136-145) Potassium Level 4.5 mmol/L (3.5-5.1) Chloride Level 105 mmol/L (98-107) Carbon Dioxide Level 20 mmol/L (21-32) Anion Gap 9 (6-14) Blood Urea Nitrogen 21 mg/dL (7-20) Creatinine 0.9 mg/dL (0.6-1.0) Estimated GFR (Cockcroft-Gault) 73.5 Glucose Level 407 mg/dL (70-99) Calcium Level 7.5 mg/dL (8.5-10.1) Test 09/24/21 11:40 Glucose (Fingerstick) 243 mg/dL (70-99) Comment Review of Relevant I have reviewed the following items silverio (where applicable) has been applied. Medications: Current Medications Medications (Trade) Dose Ordered Sig/Armand Route PRN Reason Start Time Stop Time Status Last Admin Dose Admin Heparin Sodium (Porcine) (Heparin Sodium) 5,000 unit Q12HR SQ 09/23/21 21:00 09/24/21 09:01 Dextrose/Sodium Chloride 1,000 ml @ 250 mls/hr Q4H IV 09/23/21 13:30 09/24/21 07:18 DC 09/23/21 17:15 Pantoprazole Sodium (PROTONIX VIAL for IV PUSH) 40 mg 1X ONCE IVP 09/23/21 16:15 09/23/21 16:16 DC 09/23/21 17:24 Insulin Human Lispro (HumaLOG) 0-9 UNITS TIDWMEALS SQ 09/24/21 08:00 09/23/21 20:43 DC 09/23/21 17:19 Throat Lozenges (Cepacol Sore Throat Lozenge) 1 anuj PRN Q2HRS PRN PO SORE THROAT 09/23/21 18:15 09/23/21 20:33 Acetaminophen/ Hydrocodone Bitart (Lortab 5/325) 1 tab PRN Q6HRS PRN PO PAIN 09/23/21 20:30 09/24/21 09:07 Insulin Human Lispro (HumaLOG) 0-9 UNITS QIDACHS SQ 09/23/21 21:00 09/24/21 11:44 Insulin Glargine (Lantus Syringe) 20 unit BID SQ 09/23/21 21:00 09/24/21 06:40 Justifications for Admission Abdominal Pain Indications Is patient in severe pain?: Yes Justification for admission: Patient has severe pain that requires (parenteral analgesic-please state analgesics and route) at least every 4 hours necessitating inpatient level of care. Is NPO status required?: Yes Justification for admission: Patient may require to be NPO for greater 24hours making it medically necessary to manage patient as inpatient. Other Justification CECIL ACKERMAN MD September 24, 2021 13:17
--- NOTE | 2021-09-24 13:53 | NUR ---
SS following for discharge planning. SS reviewed pt chart. Pt is from home and is currently on room air. Discharge plan is currently to home when medically ready for discharge. SS will continue to follow for discharge planning.
[2021-09-24] MEDS ORDERED: INSU100I13 SQ (18:07)
[2021-09-24] MEDS ORDERED: INSU100I17 SQ (18:07)
--- NOTE | 2021-09-24 18:12 | PDOC3 ---
Discharge Summary Visit Information Date of Admission: September 23, 2021 Date of Discharge: September 24, 2021 Admitting Diagnosis: Hyperkalemia, DKA Final Diagnosis Hyperkalemia, DKA Brief Hospital Course Allergies Allergies Coded Allergies Type Severity Reaction Last Updated Verified acetaminophen Allergy Intermediate 06/29/20 Yes adhesive tape Allergy Intermediate 08/14/16 Yes Vital Signs Vital Signs Date Time Temp Pulse Resp B/P (MAP) Pulse Ox O2 Delivery O2 Flow Rate FiO2 09/24/21 18:05 93 16 121/87 (98) 100 09/24/21 16:00 Room Air 09/24/21 16:00 97.5 97.5 Lab Results Laboratory Tests Test 09/23/21 10:46 09/23/21 11:35 09/23/21 12:07 09/23/21 13:04 Glucose (Fingerstick) 288 mg/dL (70-99) 262 mg/dL (70-99) 225 mg/dL (70-99) Sodium Level 131 mmol/L (136-145) Potassium Level 5.0 mmol/L (3.5-5.1) Chloride Level 100 mmol/L (98-107) Carbon Dioxide Level 12 mmol/L (21-32) Anion Gap 19 (6-14) Blood Urea Nitrogen 40 mg/dL (7-20) Creatinine 1.2 mg/dL (0.6-1.0) Estimated GFR (Cockcroft-Gault) 52.7 Glucose Level 286 mg/dL (70-99) Calcium Level 7.8 mg/dL (8.5-10.1) Phosphorus Level 3.9 mg/dL (2.6-4.7) Magnesium Level 2.0 mg/dL (1.8-2.4) Test 09/23/21 14:13 09/23/21 15:02 09/23/21 16:03 09/23/21 16:04 Glucose (Fingerstick) 226 mg/dL (70-99) 192 mg/dL (70-99) 273 mg/dL (70-99) Sodium Level 132 mmol/L (136-145) Potassium Level 4.3 mmol/L (3.5-5.1) Chloride Level 105 mmol/L (98-107) Carbon Dioxide Level 17 mmol/L (21-32) Anion Gap 10 (6-14) Blood Urea Nitrogen 30 mg/dL (7-20) Creatinine 1.1 mg/dL (0.6-1.0) Estimated GFR (Cockcroft-Gault) 58.3 Glucose Level 267 mg/dL (70-99) Calcium Level 7.4 mg/dL (8.5-10.1) Phosphorus Level 2.9 mg/dL (2.6-4.7) Magnesium Level 1.8 mg/dL (1.8-2.4) Test 09/23/21 16:59 09/23/21 19:55 09/23/21 23:54 09/24/21 05:30 Glucose (Fingerstick) 288 mg/dL (70-99) 271 mg/dL (70-99) 318 mg/dL (70-99) White Blood Count 10.7 x10^3/uL (4.0-11.0) Red Blood Count 3.45 x10^6/uL (3.50-5.40) Hemoglobin 10.2 g/dL (12.0-15.5) Hematocrit 30.2 % (36.0-47.0) Mean Corpuscular Volume 88 fL (79-100) Mean Corpuscular Hemoglobin 30 pg (25-35) Mean Corpuscular Hemoglobin Concent 34 g/dL (31-37) Red Cell Distribution Width 13.5 % (11.5-14.5) Platelet Count 291 x10^3/uL (140-400) Neutrophils (%) (Auto) 68 % (31-73) Lymphocytes (%) (Auto) 22 % (24-48) Monocytes (%) (Auto) 7 % (0-9) Eosinophils (%) (Auto) 2 % (0-3) Basophils (%) (Auto) 1 % (0-3) Neutrophils # (Auto) 7.2 x10^3/uL (1.8-7.7) Lymphocytes # (Auto) 2.4 x10^3/uL (1.0-4.8) Monocytes # (Auto) 0.8 x10^3/uL (0.0-1.1) Eosinophils # (Auto) 0.2 x10^3/uL (0.0-0.7) Basophils # (Auto) 0.1 x10^3/uL (0.0-0.2) Sodium Level 134 mmol/L (136-145) Potassium Level 4.5 mmol/L (3.5-5.1) Chloride Level 105 mmol/L (98-107) Carbon Dioxide Level 20 mmol/L (21-32) Anion Gap 9 (6-14) Blood Urea Nitrogen 21 mg/dL (7-20) Creatinine 0.9 mg/dL (0.6-1.0) Estimated GFR (Cockcroft-Gault) 73.5 Glucose Level 407 mg/dL (70-99) Calcium Level 7.5 mg/dL (8.5-10.1) Test 09/24/21 11:40 09/24/21 16:34 Glucose (Fingerstick) 243 mg/dL (70-99) 195 mg/dL (70-99) Laboratory Tests Test 09/23/21 19:55 09/23/21 23:54 09/24/21 05:30 09/24/21 11:40 Glucose (Fingerstick) 271 mg/dL (70-99) 318 mg/dL (70-99) 243 mg/dL (70-99) White Blood Count 10.7 x10^3/uL (4.0-11.0) Red Blood Count 3.45 x10^6/uL (3.50-5.40) Hemoglobin 10.2 g/dL (12.0-15.5) Hematocrit 30.2 % (36.0-47.0) Mean Corpuscular Volume 88 fL (79-100) Mean Corpuscular Hemoglobin 30 pg (25-35) Mean Corpuscular Hemoglobin Concent 34 g/dL (31-37) Red Cell Distribution Width 13.5 % (11.5-14.5) Platelet Count 291 x10^3/uL (140-400) Neutrophils (%) (Auto) 68 % (31-73) Lymphocytes (%) (Auto) 22 % (24-48) Monocytes (%) (Auto) 7 % (0-9) Eosinophils (%) (Auto) 2 % (0-3) Basophils (%) (Auto) 1 % (0-3) Neutrophils # (Auto) 7.2 x10^3/uL (1.8-7.7) Lymphocytes # (Auto) 2.4 x10^3/uL (1.0-4.8) Monocytes # (Auto) 0.8 x10^3/uL (0.0-1.1) Eosinophils # (Auto) 0.2 x10^3/uL (0.0-0.7) Basophils # (Auto) 0.1 x10^3/uL (0.0-0.2) Sodium Level 134 mmol/L (136-145) Potassium Level 4.5 mmol/L (3.5-5.1) Chloride Level 105 mmol/L (98-107) Carbon Dioxide Level 20 mmol/L (21-32) Anion Gap 9 (6-14) Blood Urea Nitrogen 21 mg/dL (7-20) Creatinine 0.9 mg/dL (0.6-1.0) Estimated GFR (Cockcroft-Gault) 73.5 Glucose Level 407 mg/dL (70-99) Calcium Level 7.5 mg/dL (8.5-10.1) Test 09/24/21 16:34 Glucose (Fingerstick) 195 mg/dL (70-99) Brief Hospital Course Ms Earl is a 30 year old female w/ PMHx substance use disorder, insulin dependent diabetes with gastroparesis who came to ED 09/23/21 in the morning c/o nausea, vomiting, abdomen, hyperglycemia, weakness. Seen previously for multiple admissions for gastroparesis and cyclic vomiting. No recent sick contacts or food poisoning. No recent travel outside the [place] area. She has difficulties with compliance with her diabetic regimen previously and takes Reglan for diabetic gastroparesis but says she does not think it works. Patient does continue to smoke tobacco and uses marijuana. Following with Dr. Juan outpatient Labs with WBC 18.5, Hb 14.5, platelets 382, VBG 7.1 09/26/1953 on room air, INR 0.9, PTT 24, urinalysis large blood many squamous epithelial cells negative urine , urine drug screen positive for amphetamines, NA 120, K7.1, chloride 81, HCO3 7, anion gap 32, BUN 50, CR 1.6, glucose 643, lactic acid 3.3, calcium 9.3, bilirubin 0.9, AST 21, ALT 28, alkaline phosphatase 133, CK 44, high-sensitivity troponin is 7, albumin is 3.8, lipase 33, rapid influenza negative, rapid COVID-19 negative. EKG sinus tachycardia rate of 125 bpm peak T waves no ST segment changes or T WI. Transferred to [facility] for further care for DKA for ICU care. 09/24: Gap closed pain better controlled back on home insulin regimen. She is given refills on her insulin and strict instructions for outpatient care continue her home Reglan decrease pain medications outpatient she noted she has a court date of [phone] at [phone] and would like to be discharged. Problem list: Diabetic ketoacidosis -AG now 9. Resume home insulin dose with R ISS and Accu- Cheks. Hyperkalemia -resolved Intractable abdominal pain -improved. DM1 - insulin compliance is a difficulty. Resume home insulin regimen. Gastoparesis - on reglan outpatient, she states she takes it but it doesn't work IFEOMA - vasomotor nephropathy from DKA. Improved Leukocytosis - likely reactive due to DKA, Resolved Polysubtance abuse - urine drug screen positive for amphetamines. Counseled on cessation Smoker - counseled on cessation Hyponatremia - improved Greater than 30 minutes spent on discharge home with self-care Discharge Information Condition at Discharge: Improved Follow Up: Weeks (2) Disposition/Orders: D/C to Home Scheduled Insulin Aspart (Novolog Flexpen) 100 Unit/1 Ml Insuln.pen, 0-9 UNITS SQ TIDWMEALS for Diabetes for 30 Days, #5 Ref 5 Prescribed by: JOSUE CHAN MD on 09/24/217 Insulin Glargine,Hum.rec.anlog (Lantus Solostar) 100 Unit/1 Ml Insuln.pen, 20 UNIT SQ BID for dm type 1 for 30 Days, #15 Ref 5 Prescribed by: JOSUE CHAN MD on 09/24/217 Metoclopramide Hcl (Metoclopramide Hcl) 5 Mg/5 Ml Solution, 5 MG PO QIDACHS for nausea and vomiting, Ref 0 (Reported) Entered as Reported by: JUAN ROTH RN on 04/04/18 1454 Ondansetron (Zofran Odt) 4 Mg Tab.rapdis, 1 TAB SL Q8HRS for NAUSEA for 7 Days, #21 Prescribed by: UZMA SALMERON on 05/08/17 1107 Scheduled PRN Pantoprazole Sodium (Protonix ) 40 Mg Tablet.dr, 40 MG PO DAILY PRN for HEARTBURN / GAS, (Reported) Entered as Reported by: JUDY ENRIQUEZ on 08/24/16 1010 Discontinued Medications Cefdinir (Cefdinir) 300 Mg Capsule, 1 CAP PO BID for uti for 3 Days, #6 Prescribed by: UZMA SALMERON on 08/15/21 0918 Justicifation of Admission Dx: Justifications for Admission: Justification of Admission Dx: Yes CHF: Sev. Electrolyte Abnormal JOSUE CHAN MD September 24, 2021 18:12
== END 2021-09-24 18:38 | disposition home or self-care (01) | DRG 637 ==
LOC: 1 WEST ICU 10:42
PROVIDERS: ADMIT Internal Medicine; ATTEND Internal Medicine
DX: E10.10 Type 1 diabetes mellitus with ketoacidosis without coma (principal); N17.0 Acute kidney failure with tubular necrosis; E10.43 Type 1 diabetes mellitus with diabetic autonomic (poly)neuropathy; E87.5 Hyperkalemia; F17.200 Nicotine dependence, unspecified, uncomplicated; K31.84 Gastroparesis; Z79.4 Long term (current) use of insulin; Z20.822 Contact with and (suspected) exposure to COVID-19; Z88.8 Allergy status to other drugs, medicaments and biological substances; Z91.048 Other nonmedicinal substance allergy status
CPT/HCPCS: 36415; 80048; 82962; 83735; 84100; 85025; C9113; J1644; J1815; J2270; J7042; G0378